=== PATIENT | female | born 1960 | race Hispanic/Latino ===

== ENCOUNTER 2022-06-06 09:55 | Emergency (ER) | payer OTHER, SELFPAY ==
[2022-06-06 10:59] LABS: Urine Blood Trace-intact (Negative); Urine Glucose Negative (Negative); Urine Protein Negative (Negative); Urine Specific Gravity 1.025 (1.005-1.030); Urine pH 5.5 (5.0-7.0)
[2022-06-06] MEDS ORDERED: NA CHLORIDE 0.9% 1,000 ML ONE (11:02)
[2022-06-06] MEDS ORDERED: KETOROLAC 30 MG/ML INJ ONE (11:02)
[2022-06-06] MEDS ORDERED: ONDANSETRON 4 MG/2 ML VIAL ONE (11:02)
[2022-06-06 11:22] LABS: Absolute Lymphocytes (CBC) 3.5 K/uL (0.7-4.9); Hematocrit 39.9 % (36.0-45.0); Lymphocytes % 51.8 % (15.3-44.8); MCV 85.9 fL (80-100); RBC Red Blood Cell Count 4.65 M/uL (3.86-4.86)
[2022-06-06 11:25] LABS: Urine Bacteria None Seen /HPF (<20); Urine Mucus Slight /HPF (None Seen); Urine RBC <5 /HPF (None Seen)
--- NOTE | 2022-06-06 11:26 | RAD REPORT ---
EXAM DESCRIPTION: CTAbdomen Pelvis Wo Contrast - 06/06/2022 11:13 am CLINICAL HISTORY: FLANK PAIN COMPARISON: Abdomen Pelvis W Contrast dated 04/03/2017; CT ABD PELVIS W CONTRAST dated 08/19/2013 TECHNIQUE: CT of the abdomen and pelvis was performed. All CT scans are performed using dose optimization technique as appropriate and may include automated exposure control or mA/KV adjustment according to patient size. FINDINGS: Lower chest: No acute abnormality. Liver: No acute abnormality or suspicious lesions. Biliary: No biliary ductal dilatation. Stomach: No significant focal abnormality. Duodenum: No significant focal abnormality. Pancreas: No significant abnormality. Spleen: No significant abnormality. Adrenal: No suspicious lesions. Kidney/ureter: No hydronephrosis. Punctate stone in pole right kidney. Retroperitoneum: No retroperitoneal adenopathy. Vascular: No aneurysm. Atherosclerosis Bowel: No significant focal abnormality. Normal appendix. Peritoneum: No ascites or free air. Small fat containing umbilical hernia. Bladder: Grossly unremarkable. Reproductive: Unremarkable Bones: No acute fracture. Multilevel degenerative changes are present in the spine. Other: n/a IMPRESSION: No acute intra-abdominal or pelvic finding. Punctate nonobstructing stone in the upper p ole right kidney. Normal appendix.
[2022-06-06 11:37] LABS: Albumin 3.6 g/dL (3.4-5.0); Bilirubin Total 0.3 mg/dL (0.2-1.0); Potassium 4.1 mmol/L (3.5-5.1); Protein, Total 7.3 g/dL (6.4-8.2)
[2022-06-06 12:17] LABS: Platelet Estimate ADEQ
[2022-06-06 12:18] LABS: Blood Morphology Comment NOT SEEN (NOT SEEN)
--- NOTE | 2022-06-06 12:32 | ER ---
Nurse's Notes [facility] Name: Mady Her Age: 61 yrs Sex: Female : 1960 Arrival Date: 06/06/2022 Time: 10:22 Bed 12 Private MD: Diagnosis: Flank pain;Hematuria, unspecified Presentation: 06/06 10:54 Chief complaint: Patient's son or daughter states: Right low back pain, stabbing, and jl7 nausea x 3 days, denies symptoms, denies fever. Coronavirus screen: Vaccine status: Patient reports receiving the 2nd dose of the covid vaccine. At this time, the client does not indicate any symptoms associated with coronavirus-19. Ebola Screen: No symptoms or risks identified at this time. Initial Sepsis Screen: Does the patient meet any 2 criteria? No. Patient's initial sepsis screen is negative. Does the patient have a suspected source of infection? No. Patient's initial sepsis screen is negative. Risk Assessment: Do you want to hurt yourself or someone else? Patient reports no desire to harm self or others. Onset of symptoms was June 04, 2022. 10:54 Method Of Arrival: Ambulatory jl7 10:54 Acuity: MAYA 3 jl7 Triage Assessment: 10:56 General: Appears in no apparent distress. uncomfortable, Behavior is calm, cooperative, jl7 appropriate for age. Pain: Complains of pain in right flank Pain currently is 10 out of 10 on a pain scale. GI: Reports nausea. Historical: - Allergies: 10:56 No Known Allergies; jl7 - Home Meds: 10:56 None [Active]; jl7 - PMHx: 10:56 None; jl7 - PSHx: 10:56 section; jl7 - Immunization history:: Adult Immunizations up to date. - Social history:: Smoking status: Patient denies any tobacco usage or history of. Screenin:49 [facility] ED Fall Risk Assessment (Adult) History of falling in the last 3 months, ss including since admission No falls in past 3 months (0 pts). Abuse screen: Denies threats or abuse. Denies injuries from another. Nutritional screening: No deficits noted. Tuberculosis screening: Never had TB. Assessment: 11:49 General: Appears in no apparent distress. comfortable, Behavior is calm, cooperative. ss Pain: Complains of pain in back and right flank Pain currently is 10 out of 10 on a pain scale. Quality of pain is described as aching, tender, Is continuous. Neuro: Level of Consciousness is awake, alert, obeys commands, Oriented to person, place, time, situation. Respiratory: Airway is patent Respiratory effort is even, unlabored, Respiratory pattern is regular, symmetrical. GI: Abdomen is non-distended. Derm: Skin is intact, is healthy with good turgor, Skin is pink, warm \T\ dry. normal. 12:22 Reassessment: Patient appears in no apparent distress at this time. Patient and/or ss family updated on plan of care and expected duration. Pain level reassessed. Patient is alert, oriented x 3, equal unlabored respirations, skin warm/dry/pink. pain has decreased after medication administration. Pain is now 5/10 Patient states feeling better. Patient states symptoms have improved. Vital Signs: 10:54 BP 160 / 84; Pulse 76; Resp 17; Temp 98.; Pulse Ox 96% ; Weight 86.18 kg; Height 5 ft. jl7 4 in. (162.56 cm); Pain 10/10; 10:54 Body Mass Index 32.61 (86.18 kg, 162.56 cm) jl7 ED Course: 10:22 Patient arrived in ED. am2 10:27 Alan Ulrich DO is Attending Physician. ms3 10:56 Triage completed. jl7 10:56 Arm band placed on right wrist. Patient placed in waiting room, Patient notified of jl7 wait time. 11:39 Hannah Gonzalez, LISS is Primary Nurse. ss 11:48 Inserted saline lock: 20 gauge in right antecubital area, using aseptic technique. ss ,using aseptic technique. earlier insertion by LUCIEN Cloud tech. 11:49 Patient has correct armband on for positive identification. Bed in low position. Call ss light in reach. 12:32 Adi Molina DO is Referral Physician. ms3 12:37 No provider procedures requiring assistance completed. IV discontinued, intact, ss bleeding controlled, No redness/swelling at site. Pressure dressing applied. Administered Medications: 11:45 Drug: Zofran (Ondansetron) 4 mg Route: IVP; Site: right antecubital; ss 12:37 Follow up: Response: No adverse reaction ss 11:47 Drug: NS 0.9% 1000 ml Route: IV; Rate: 1 bolus; Site: right antecubital; ss 12:38 Follow up: IV Status: Completed infusion; IV Intake: 1000ml ss 11:47 Drug: TORadol - (ketorolac) 15 mg Route: IVP; Site: right antecubital; ss 12:37 Follow up: Response: No adverse reaction; Marked relief of symptoms; Pain is decreased ss Medication: 11:49 VIS not applicable for this client. ss Intake: 12:38 IV: 1000ml; Total: 1000ml. ss Outcome: 12:32 Discharge ordered by . ms3 12:37 Discharged to home ambulatory. ss 12:37 Condition: good 12:37 Discharge instructions given to patient, family, Instructed on discharge instructions, follow up and referral plans. medication usage, Demonstrated understanding of instructions, follow-up care, medications, Prescriptions given X 1. 12:38 Patient left the ED. Signatures: Hannah Gonzalez RN RN ss Ryan Lee RN RN jl7 Yudith Yañez Marcus, DO DO ms3
--- NOTE | 2022-06-06 12:33 | EDPHYS ---
Physician Documentation [facility] Name: Mady Her Age: 61 yrs Sex: Female : 1960 Arrival Date: 06/06/2022 Time: 10:22 Bed 12 Private MD: ED Physician Alan Ulrich HPI: 06/06 12:32 This 61 yrs old Female presents to ER via Ambulatory with complaints of Low ms3 Back Pain - right side, Nausea. 12:32 61-year-old female with no past medical history presents for right flank pain and ms3 tenderness to palpation in the right flank that has been ongoing for 2 days. Patient states pain is a 10/10 and throbbing. Patient is taken ibuprofen and Tylenol without relief. Patient denies vomiting, chills, dysuria, urinary frequency. Historical: - Allergies: 10:56 No Known Allergies; jl7 - Home Meds: 10:56 None [Active]; jl7 - PMHx: 10:56 None; jl7 - PSHx: 10:56 section; jl7 - Immunization history:: Adult Immunizations up to date. - Social history:: Smoking status: Patient denies any tobacco usage or history of. ROS: 12:32 Constitutional: Negative for fever, and chills. Neck: Negative for injury, pain, and ms3 swelling, Cardiovascular: Negative for chest pain, and palpitations. Respiratory: Negative for shortness of breath, cough, wheezing, and pleuritic chest pain, Abdomen/GI: Negative for abdominal pain, nausea, vomiting, diarrhea, and constipation. 12:32 Skin: Negative for injury, rash, and discoloration. 12:32 Back: Positive for flank pain. 12:32 All other systems are negative. Exam: 12:32 Constitutional: This is a well developed, well nourished patient who is awake, alert, ms3 and in no acute distress. Head/Face: Normocephalic, atraumatic. Neck: Trachea midline, no cervical lymphadenopathy. Supple, full range of motion without nuchal rigidity, or vertebral point tenderness. No Meningismus. Chest/axilla: Normal chest wall appearance and motion. Nontender with no deformity. Cardiovascular: Regular rate and rhythm with a normal S1 and S2. No gallops, murmurs, or rubs. Normal PMI, no JVD. No pulse deficits. Respiratory: Lungs have equal breath sounds bilaterally, clear to auscultation and percussion. No rales, rhonchi or wheezes noted. No increased work of breathing, no retractions or nasal flaring. Abdomen/GI: Soft, non-tender, with normal bowel sounds. No distension or tympany. No guarding or rebound. No evidence of tenderness throughout. Skin: Warm, dry with normal turgor. Normal color with no rashes, no lesions, and no evidence of cellulitis. MS/ Extremity: Pulses equal, no cyanosis. Neurovascular intact. Full, normal range of motion. 12:32 Back: pain, that is moderate, CVA tenderness, that is moderate, is noted on the right. Vital Signs: 10:54 BP 160 / 84; Pulse 76; Resp 17; Temp 98.; Pulse Ox 96% ; Weight 86.18 kg; Height 5 ft. jl7 4 in. (162.56 cm); Pain 10/10; 10:54 Body Mass Index 32.61 (86.18 kg, 162.56 cm) jl7 MDM: 11:03 Patient medically screened. ms3 12:32 Differential diagnosis: strain, UTI, Nephrolithiasis. Data reviewed: vital signs, ms3 nurses notes, lab test result(s), radiologic studies, and as a result, I will discharge patient. I considered the following discharge prescriptions or medication management in the emergency department Medications were administered in the Emergency Department. See MAR. Independent interpretation of the following test(s) in the Emergency Department CT Scan: My interpretation is CT images reviewed by me: No ureteral stone seen. Historians other than the Patient: Daughter/Son: Daughter. Counseling: I had a detailed discussion with the patient and/or guardian regarding: the historical points, exam findings, and any diagnostic results supporting the discharge/admit diagnosis, lab results, radiology results, the need for outpatient follow up, to return to the emergency department if symptoms worsen or persist or if there are any questions or concerns that arise at home. ED course: Discussed labs and CT findings with patient and her family. Patient to follow-up with primary care physician in 2 to 3 days for reevaluation. Patient understands agrees plan. All questions were answered. Return precautions discussed include fevers, chills, vomiting, worsening symptoms, or any other concerns. On reevaluation patient is improved, alert and orient x4, no apparent distress, nontoxic, ambulatory in emergency department.. 06/06 10:49 Order name: CBC with Diff ms3 06/06 10:49 Order name: CMP ms3 06/06 10:49 Order name: Lipase ms3 06/06 10:49 Order name: Urine Microscopic Only ms3 06/06 11:00 Order name: Urine Dipstick-Ancillary; Complete Time: 11:52 EDMS 06/06 11:24 Order name: CBC with Automated Diff EDMS 06/06 10:49 Order name: CT Abd/Pelvis - Without Contrast ms3 06/06 11:25 Order name: Urine Microscopic Only; Complete Time: 11:52 EDMS 06/06 11:27 Order name: CT; Complete Time: 11:52 EDMS 06/06 11:38 Order name: Comprehensive Metabolic Panel; Complete Time: 11:52 EDMS 06/06 11:38 Order name: Lipase; Complete Time: 11:52 EDMS 06/06 12:18 Order name: Manual Differential EDMS 06/06 10:49 Order name: IV Saline Lock; Complete Time: 11:47 ms3 06/06 10:49 Order name: Labs collected and sent; Complete Time: 11:47 ms3 06/06 10:49 Order name: Urine Dipstick-Ancillary (obtain specimen); Complete Time: 10:55 ms3 Administered Medications: 11:45 Drug: Zofran (Ondansetron) 4 mg Route: IVP; Site: right antecubital; ss 12:37 Follow up: Response: No adverse reaction ss 11:47 Drug: NS 0.9% 1000 ml Route: IV; Rate: 1 bolus; Site: right antecubital; ss 12:38 Follow up: IV Status: Completed infusion; IV Intake: 1000ml ss 11:47 Drug: TORadol - (ketorolac) 15 mg Route: IVP; Site: right antecubital; ss 12:37 Follow up: Response: No adverse reaction; Marked relief of symptoms; Pain is decreased ss Disposition Summary: 06/06/22 12:32 Discharge Ordered Location: Home ms3 Condition: Stable ms3 Diagnosis - Flank pain ms3 - Hematuria, unspecified ms3 Followup: ms3 - With: Molina, Adi, DO - When: 2 - 3 days - Reason: Recheck today's complaints Discharge Instructions: - Discharge Summary Sheet ms3 - Flank Pain, Adult ms3 - Hematuria, Adult ms3 Forms: - Medication Reconciliation Form ms3 - Thank You Letter ms3 - Antibiotic Education ms3 - Prescription Opioid Use ms3 Prescriptions: - Ibuprofen 600 mg Oral Tablet - take 1 tablet by ORAL route every 6 hours As needed take with food; 30 tablet; ms3 Refills: 0, Product Selection Permitted Signatures: Dispatcher [employer] Hannah Lee RN RN ss Ryan Lee RN RN jl7 Alan Ulrich DO DO ms3
[2022-06-06 12:58] VITALS: BP 160/84; TEMP 98; O2SAT 96
== END 2022-06-06 12:38 | disposition home or self-care (01) ==
LOC: ER 09:55
DX: R10.9 Unspecified abdominal pain (principal); R31.9 Hematuria, unspecified
CPT/HCPCS: 85025; 36415; 83690; 80053; 74176; J7030; J2405; 81003; 81015

== ENCOUNTER 2023-01-10 10:05 | Emergency (ER) | payer OTHER ==
--- OUTSIDE RECORDS SUMMARY | 2023-01-10 10:08 | XMS REPORT | Continuity of Care Document ---
:1960 Author Organization [facility] t Address [address] [place] [address] Care Team Providers Name Role Phone Unavailable Unavailable Unavailable Problems This patient has no known problems. Allergies, Adverse Reactions, Alerts This patient has no known allergies or adverse reactions. Medications This patient has no known medications. Procedures This patient has no known procedures. Encounters Start End Encounter Admission Attending Care Care Encounter Source Date/Time Date/Time Type Type Clinicians Facility Department ID 2022-08-07 2022-08-07 Outpatient [facility]EL [id number] Robert 17:30:13 17:30:13 0417 Vick Alvin Results This patient has no known results.
[2023-01-10] MEDS ORDERED: KETOROLAC 30 MG/ML INJ ONE (10:37)
--- NOTE | 2023-01-10 11:38 | RAD REPORT ---
EXAM DESCRIPTION: RAD - Shoulder Left 2 View - 01/10/2023 10:44 am CLINICAL HISTORY: PAIN COMPARISON: No comparisons FINDINGS: Diffuse osteopenia is seen. Mild AC joint and glenohumeral joint arthritic changes. No fra cture or dislocation seen. Mild high-riding humeral head noted, suggesting underlying rotator cuff te ar.
--- NOTE | 2023-01-10 11:51 | ER ---
Nurse's Notes [facility] Name: Mady Her Age: 62 yrs Sex: Female : 1960 Arrival Date: 01/10/2023 Time: 10:05 Bed 18 Private MD: Diagnosis: Pain in left shoulder Presentation: 01/10 10:23 Chief complaint: Patient states: L shoulder pain that started Villa night, radiates to ph L upper arm, denies chest pain, dizziness or N/V, no known trauma. Coronavirus screen: Vaccine status: Patient reports receiving the 2nd dose of the covid vaccine. Ebola Screen: No symptoms or risks identified at this time. Initial Sepsis Screen: Does the patient meet any 2 criteria? No. Patient's initial sepsis screen is negative. Does the patient have a suspected source of infection? No. Patient's initial sepsis screen is negative. Risk Assessment: Do you want to hurt yourself or someone else? Patient reports no desire to harm self or others. Onset of symptoms was January 10, 2023. 10:23 Method Of Arrival: Ambulatory ph 10:23 Acuity: MAYA 3 ph Triage Assessment: 10:25 General: Appears in no apparent distress. comfortable, Behavior is calm, cooperative. ph Pain: Complains of pain in anterior aspect of left shoulder Pain radiates to left bicep and left tricep. Historical: - Allergies: 10:24 No Known Allergies; ph - PSHx: 10:24 section; ph - Immunization history:: Adult Immunizations unknown. - Social history:: Smoking status: Patient denies any tobacco usage or history of. - Family history:: not pertinent. Screenin:[address] [facility] ED Fall Risk Assessment (Adult) Score/Fall Risk Level 0 - 2 = Low Risk. Abuse eh3 screen: Denies threats or abuse. Denies injuries from another. Nutritional screening: No deficits noted. Tuberculosis screening: No symptoms or risk factors identified. Assessment: 10:30 General: Appears in no apparent distress. uncomfortable, Behavior is calm, cooperative, eh3 appropriate for age. Pain: Complains of pain in anterior aspect of left shoulder, left bicep, posterior aspect of left shoulder and left tricep. Neuro: Level of Consciousness is awake, alert, obeys commands, Oriented to person, place, time, situation. Cardiovascular: Capillary refill < 3 seconds Patient's skin is warm and dry. Respiratory: Airway is patent Respiratory effort is even, unlabored, Respiratory pattern is regular, symmetrical. GI: Abdomen is round non-distended. Derm: Skin is healthy with good turgor, Skin is pink, warm \T\ dry. Musculoskeletal: Circulation, motion, and sensation intact. 11:30 Reassessment: Patient appears in no apparent distress at this time. Patient and/or eh3 family updated on plan of care and expected duration. Pain level reassessed. Patient is alert, oriented x 3, equal unlabored respirations, skin warm/dry/pink. Vital Signs: 10:23 BP 151 / 71; Pulse 73; Resp 18; Temp 97.4; Pulse Ox 98% on R/A; Weight 83.91 kg; Height ph 5 ft. 4 in. ; 10:30 BP 126 / 67; eh3 11:30 BP 130 / 76; Pulse 66; Resp 18; Pulse Ox 97% on R/A; eh3 10:23 Body Mass Index 31.75 (83.91 kg, 162.56 cm) ph ED Course: 10:08 Patient arrived in ED. im 10:08 Urban Hinton MD is Attending Physician. rt 10:22 Mila Schneider, LISS is Primary Nurse. eh3 10:24 Triage completed. ph 10:25 Arm band placed on Patient placed in an exam room, on a stretcher. ph 10:30 Patient has correct armband on for positive identification. Bed in low position. Call eh3 light in reach. Side rails up X2. Adult w/ patient. Provided Education on: Use of call khan. Pulse ox on. NIBP on. Door closed. Noise minimized. Lights dimmed. Warm blanket given. 10:45 Shoulder Left (2 View) XRAY In Process Unspecified. EDMS 11:50 Anjum Estevez MD is Referral Physician. rt 11:59 No provider procedures requiring assistance completed. Patient did not have IV access eh3 during this emergency room visit. Administered Medications: 10:30 Drug: Ketorolac IM 15 mg IM once Route: IM; Site: right deltoid; eh3 11:08 Follow up: Response: No adverse reaction eh3 Medication: 11:59 VIS not applicable for this client. eh3 Outcome: 11:51 Discharge ordered by . rt 11:59 Discharged to home ambulatory, with family, [facility] 11:59 Condition: stable 11:59 Discharge instructions given to patient, family, Instructed on discharge instructions, follow up and referral plans. Demonstrated understanding of instructions, follow-up care, 11:59 Patient left the ED. [facility] Signatures: Dispatcher [employer] Naida Kramer RN RN Mila Schneider RN RN 3 Urban Hinton MD MD Marisol Johnson
--- NOTE | 2023-01-10 11:51 | EDPHYS ---
Physician Documentation [facility] Name: Mady Her Age: 62 yrs Sex: Female : 1960 Arrival Date: 01/10/2023 Time: 10:05 Bed 18 Private MD: ED Physician Urban Hinton HPI: 01/10 10:25 This 62 yrs old Female presents to ER via Ambulatory with complaints of Arm rt Pain - left. 10:25 Patient presents to the ED with a left shoulder pain, worse with movement since Sunday rt night. Has not worsened today. She is taken [id number] medications, to no relief. The pain does radiate to her upper arm. Denies chest pain. No shortness of breath. Denies acute complaint at this time, symptoms are aching in nature, moderate severity, no other aggravating relieving factors.. Historical: - Allergies: 10:24 No Known Allergies; ph - PSHx: 10:24 section; ph - Immunization history:: Adult Immunizations unknown. - Social history:: Smoking status: Patient denies any tobacco usage or history of. - Family history:: not pertinent. ROS: 10:25 Constitutional: Negative for fever, chills, and weight loss, Cardiovascular: Negative rt for chest pain, palpitations, and edema, Respiratory: Negative for shortness of breath, cough, wheezing, and pleuritic chest pain, Abdomen/GI: Negative for abdominal pain, nausea, vomiting, diarrhea, and constipation, Skin: Negative for injury, rash, and discoloration, Neuro: Negative for headache, weakness, numbness, tingling, and seizure, Psych: Negative for depression, anxiety, suicide ideation, homicidal ideation, and hallucinations, 10:25 MS/extremity: Positive for pain, Negative for injury or acute deformity, Exam: 10:25 Constitutional: This is a well developed, well nourished patient who is awake, alert, rt and in no acute distress. Head/Face: Normocephalic, atraumatic. Chest/axilla: Normal chest wall appearance and motion. Nontender with no deformity. No lesions are appreciated. Cardiovascular: Regular rate and rhythm with a normal S1 and S2. No gallops, murmurs, or rubs. Normal PMI, no JVD. No pulse deficits. Respiratory: Lungs have equal breath sounds bilaterally, clear to auscultation and percussion. No rales, rhonchi or wheezes noted. No increased work of breathing, no retractions or nasal flaring. Abdomen/GI: Soft, non-tender, with normal bowel sounds. No distension or tympany. No guarding or rebound. No evidence of tenderness throughout. Skin: Warm, dry with normal turgor. Normal color with no rashes, no lesions, and no evidence of cellulitis. Neuro: Awake and alert, GCS 15, oriented to person, place, time, and situation. Cranial nerves II-XII grossly intact. Motor strength 5/5 in all extremities. Sensory grossly intact. Cerebellar exam normal. Normal gait. Psych: Awake, alert, with orientation to person, place and time. Behavior, mood, and affect are within normal limits. 10:25 Musculoskeletal/extremity: Tenderness to left superior trapezius, left subdural fossa, no deformities noted, full range of motion, pulses, motor, sensation intact. Vital Signs: 10:23 BP 151 / 71; Pulse 73; Resp 18; Temp 97.4; Pulse Ox 98% on R/A; Weight 83.91 kg; Height ph 5 ft. 4 in. ; 10:30 BP 126 / 67; eh3 11:30 BP 130 / 76; Pulse 66; Resp 18; Pulse Ox 97% on R/A; eh3 10:23 Body Mass Index 31.75 (83.91 kg, 162.56 cm) ph MDM: 10:12 Patient medically screened. rt 11:51 Differential diagnosis: dislocation, closed fracture, abrasion, tendonitis. Data rt reviewed: vital signs, nurses notes, radiologic studies. I considered the following discharge prescriptions or medication management in the emergency department Medications were administered in the Emergency Department. See MAR. Independent interpretation of the following test(s) in the Emergency Department X-Ray: My interpretation is No dislocations interpretation of x-ray images. Test considered but Not performed: EKG: Symptoms clearly musculoskeletal, very low suspicion for cardiac etiology, EKG, labs not indicated. Counseling: I had a detailed discussion with the patient and/or guardian regarding the historical points, exam findings, and any diagnostic results supporting the discharge/admit diagnosis, radiology results, the need for outpatient follow up. 01/10 10:17 Order name: Shoulder Left (2 View) XRAY; Complete Time: 11:39 rt Administered Medications: 10:30 Drug: Ketorolac IM 15 mg IM once Route: IM; Site: right deltoid; 3 11:08 Follow up: Response: No adverse reaction eh3 Disposition Summary: 01/10/23 11:51 Discharge Ordered Notes: Location: Home rt Problem: new rt Symptoms: are unchanged rt Condition: Stable rt Diagnosis - Pain in left shoulder rt Followup: rt - With: Anjum Estevez MD - When: 7 - 10 days - Reason: Discharge Instructions: - Discharge Summary Sheet rt - Rotator Cuff Tear rt - Shoulder Range of Motion Exercises rt Forms: - Medication Reconciliation Form rt - Thank You Letter rt - Antibiotic Education rt - Prescription Opioid Use rt - Patient Portal Instructions rt - Leadership Thank You Letter rt Signatures: Dispatcher [employer] Naida Kramer, LISS RN Mila Schneider RN RN 3 Urban Hinton MD MD rt
[2023-01-10 12:06] VITALS: TEMP 97.4
[2023-01-10 12:08] VITALS: BP 130/76; O2SAT 97
== END 2023-01-10 11:59 | disposition home or self-care (01) ==
LOC: ER 10:05
DX: M25.512 Pain in left shoulder (principal)

== ENCOUNTER 2023-07-21 21:33 | Inpatient (IN) | payer OTHER ==
--- OUTSIDE RECORDS SUMMARY | 2023-07-21 21:36 | XMS REPORT | Continuity of Care Document ---
Author Name Unknown Address [address] [facility] [address] [facility] Address [address] [facility] [address] [place] [address] Care Team Providers Care Plant Operations Manager Name Role Phone Gayle Boudreaux Attending Clinician Unavailable CAROL ZAMBRANO Attending Clinician Unavailable DOLORES BAUER Attending Clinician Unavailab Christine MD Attending Clinician UnavailJOLEEN Galindo Attending Clinician Unavailabl e LAB90 Attending Clinician Unavailable GAYLE BOUDREAUX Attending Clinician UnaROBERT López Attending Clinician Unavailable DARNELL DUNAWAY Attending Clinician Unavailable Gayle Boudreaux Admitting Clinician Unavailable Payers Payer Name Policy Type Policy Number Effective Date Expirati on Date Source AETNA MP [facility] 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 94 ON 9 [id number] 2022 00:00:00 [facility] 9 [id number] 2023 00:00:00 Social History Social Habit Start Date Stop Date Quantity Comments Source Sexual orientation Esther Ulrich - External Alcohol intake 2023-07-12 00:00:00 2023-07-12 00:00:00 Lifetime non-drinker (finding) Casi Ulrich - External History of Social function 2023-01-17 00:00:00 2023-01-17 00:00:00 Casi Ulrich - External Sex Ass[birth year] At 1960 00:00:00 1960 00:00:00 Casi Spann Smoking Status Start Date Stop Date Source Never smoked tobacco Casi Spann Medications Ordered Medication Name Filled Medication Name Start Date Stop Date Current Medication? Ordering Clinician Indication Dosage Frequency Signature (SIG) Comments Components Source Trazodone HCl 50 MG oral Tablet -21 00:00: 00 Yes [id number] 50mg Take 1 tablet (50 mg total) by mouth nightly. Casi murillo Lisinopril 10 MG oral Tablet -14 00:00: 00 Yes [id number] 10mg TAKE 1 TABLET BY MOUTH EVERY DAY Casi murillo Methocarbam ol 500 MG oral Tablet 06-24 00:00: 00 Yes TAKE 1 TABLET ORALLY THREE TIMES A DAY NEEDED Casi murillo Ondansetron HCl 4 MG oral Tablet 06-24 00:00: 00 Yes 4mg Q.25D Take 1 tablet (4 mg total) by mouth every 6 hours as needed. Casi murillo HYDROcodone -Acetaminop hen 7.5-325 MG oral Tablet 06-18 00:00: 00 Yes TAKE 1 TABLET BY MOUTH EVERY 6 HOURS NEEDED FOR 7 DAYS Casi murillo Meloxicam 7.5 MG oral Tablet 05-31 00:00: 00 Yes [id number] 7.5mg Take 1 tablet (7.5 mg total) by mouth daily. Casi murillo Meloxicam 7.5 MG oral Tablet 05-31 00:00: 00 Yes [id number] 7.5mg Take 1 tablet (7.5 mg total) by mouth daily. Casi murillo Ketorolac Tromethamin e (TORADOL) 30 mg/mL 2022-04 22:45: 00 03-30 22:56 :00 No [id number] 30mg Casi murillo Ketorolac Tromethamin e (TORADOL) 30 mg/mL 2022-04 22:45: 00 03-30 22:56 :00 No [id number] 30mg 30 mg, intramuscu lar, ONCE, On Sun03/30/23 at 1645, For 1 dose Casi Alvarado Externa chidi methylPREDN ISolone 4 MG oral Tablet Therapy Pack 2022-04 00:00: 00 Yes [id number] 1{huseyin} Take 1 huseyin by mouth See Admin Instructio ns Use as directed. Casi Ulrich - Externa chidi Meloxicam 7.5 MG oral Tablet 2022-04 00:00: 00 Yes [id number] 7.5mg Take 1 tablet (7.5 mg total) by mouth daily. Casi Ulrich - Externa chidi methylPREDN ISolone 4 MG oral Tablet Therapy Pack 2022-04 00:00: 00 05-31 00:00 :00 No [id number] 1{huseyin} Take 1 huseyin by mouth See Admin Instructio ns Use as directed. Casi Ulrich - Externa chidi Meloxicam 7.5 MG oral Tablet 2022-04 00:00: 00 05-31 00:00 :00 No [id number] 7.5mg Take 1 tablet (7.5 mg total) by mouth daily. Casi Graciaa chidi Methylpredn isolone Acetate (Depo-Medro l) 40 mg/ml - Physician Administere d (J1030) 2022-04 0 14:15: 00 01-25 22:40 :00 No [id number] 9104 40mg Casi Ulrich - Externa l Methylpredn isolone Acetate (Depo-Medro l) 40 mg/ml - Physician Administere d ([id number]) 2022-04 0 14:15: 00 01-25 22:40 :00 No [id number] 9104 40mg 40 mg, Physician Administer ed, ONCE, 1 dose, On Sun01/25/23 at 0915 Casi Graciaa chidi methylPREDN ISolone 4 MG oral Tablet Therapy Pack 01-17 00:00: 00 Yes [id number] 1{huseyin} Take 1 pa k by mouth See Admin Instructio ns Use as directed. Casi Graciaa chidi Diclofenac Sodium 75 MG oral Tablet Delayed Response 01-17 00:00: 00 Yes [id number] 75mg Take 1 tablet (75 mg total) by mouth 2 times daily. Casi Alvarado Externa l methylPREDN ISolone 4 MG oral Tablet Therapy Pack 01-17 00:00: 00 Yes [id number] 1{huseyin} Take 1 pa k by mouth See Admin Instructio ns Use as directed. Casi Alvarado Externa l Diclofenac Sodium 75 MG oral Tablet Delayed Response 01-17 00:00: 00 Yes [id number] 75mg Take 1 tablet (75 mg total) by mouth 2 times daily. Casi Alvarado Externa l methylPREDN ISolone 4 MG oral Tablet Therapy Pack 01-17 00:00: 00 Yes [id number] 1{huseyin} Take 1 pa k by mouth See Admin Instructio ns Use as directed. Casi Michelle l Diclofenac Sodium 75 MG oral Tablet Delayed Response 01-17 00:00: 00 Yes [id number] 75mg Take 1 tablet (75 mg total) by mouth 2 times daily. Casi murillo methylPREDN ISolone 4 MG oral Tablet Therapy Pack 01-17 00:00: 00 05-31 00:00 :00 No [id number] 1{huseyin} Take 1 huseyin by mouth See Admin Instructio ns Use as directed. Casi Alvarado Externa l Diclofenac Sodium 75 MG oral Tablet Delayed Response 01-17 00:00: 00 05-31 00:00 :00 No [id number] 75mg Take 1 tablet (75 mg total) by mouth 2 times daily. Casi Ulrich - Externa l Gabapentin 100 MG oral Capsule 01-10 00:00: 00 Yes 100mg Take 1 capsule (100 mg total) by mouth 3 times daily. Casi Downsold - Externa l Gabapentin 100 MG oral Capsule 0 01-10 00:00: 00 Yes 100mg Take 1 capsule (100 mg total) by mouth 3 times daily. Casi Downsold - Externa l Gabapentin 100 MG oral Capsule 01-10 00:00: 00 Yes 100mg Take 1 capsule (100 mg total) by mouth 3 times daily. Casi Downsold - Externa l Gabapentin 100 MG oral Capsule -20 00:00: 00 05-31 00:00 :00 No 100mg Take 1 capsule (100 mg total) by mouth 3 times daily. Casi Downsold - Externa l Vital Signs Vital Name Observation Time Observation Value Comments Jose Luis vargas Systolic blood pressure 2023-07-12 15:02:00 138 mm[Hg] Casi Seybo ld - External Diastolic blood pressure 2023-07-12 15:02:00 72 mm[Hg] Casi Duffybo ld - External Heart rate 2023-07-12 15:02:00 78 /min Kelse y Seybold - External Body temperature 2023-07-12 15:02:00 36.72 Claudia Casi Seybold - External Respiratory rate 2023-07-12 15:02:00 16 /min Casi Seybold - External Body height 2023-07-12 15:02:00 160 cm Pinky ey Seybold - External Body weight 2023-07-12 15:02:00 90.266 kg Pinky ey Seybold - External BMI 2023-07-12 15:02:00 35.25 kg/m2 Pinky ey Seybold - External Oxygen saturation in Arterial blood by Pulse oximetry 2023-07-12 15:02:00 97 /min Casi Duffybo ld - External Systolic blood pressure 2023-05-31 22:13:00 158 mm[Hg] Casi Seybo ld - External Diastolic blood pressure 2023-05-31 22:13:00 78 mm[Hg] Casi Duffybo ld - External Heart rate 2023-05-31 22:13:00 81 /min Kelse y Seybold - External Body temperature 2023-05-31 22:13:00 35.89 Claudia Casi Seybold - External Respiratory rate 2023-05-31 22:13:00 15 /min Casi Seybold - External Body height 2023-05-31 22:13:00 160 cm Pinky ey Seybold - External Body weight 2023-05-31 22:13:00 90.719 kg Pinky ey Seybold - External BMI 2023-05-31 22:13:00 35.43 kg/m2 Pinky ey Seybold - External Systolic blood pressure 2023-03-30 22:22:00 126 mm[Hg] Casi Duffybo ld - External Diastolic blood pressure 2023-03-30 22:22:00 68 mm[Hg] Casi Seybo ld - External Heart rate 2023-03-30 22:22:00 94 /min Kelse y Seybold - External Body temperature 2023-03-30 22:22:00 36.44 Claudia Casi Seybold - External Respiratory rate 2023-03-30 22:22:00 16 /min Casi Seybold - External Body height 2023-03-30 22:22:00 160 cm Pinky ey Seybold - External Body weight 2023-03-30 22:22:00 87.091 kg Pinky ey Seybold - External BMI 2023-03-30 22:22:00 34.01 kg/m2 Pinky ey Seybold - External Oxygen saturation in Arterial blood by Pulse oximetry 2023-03-30 22:22:00 96 /min Casi Duffybo ld - External Body weight 2023-01-25 13:56:00 88.633 kg Pinky ey Seybold - External BMI 2023-01-25 13:56:00 34.61 kg/m2 Pinky ey Seybold - External Systolic blood pressure 2023-01-17 14:04:00 156 mm[Hg] Casi Seybo ld - External Diastolic blood pressure 2023-01-17 14:04:00 82 mm[Hg] Casi Duffybo ld - External Heart rate 2023-01-17 14:04:00 74 /min Monicose y Seybold - External Body temperature 2023-01-17 14:04:00 36 Claudia Casi Seybold - External Respiratory rate 2023-01-17 14:04:00 15 /min Casi Seybold - External Body height 2023-01-17 14:04:00 160 cm Pinky ey Seybold - External Body weight 2023-01-17 14:04:00 88.905 kg Pinky ey Seybold - External BMI 2023-01-17 14:04:00 34.72 kg/m2 Pinky ey Seybold - External Encounters Start Date/Time End Date/Time Encounter Type Admission Type Attending [facility] Care Department Encounter ID Source 2023-06-18 08:17:01 Outpatient Gayle Boudreaux [facility] [id number] [facility] 2023-08-13 10:00:00 2023-08-13 10:00:00 Outpatient JUAN MANUEL CAROL BECERRA [id number] Casi Seybadalberto 2023-07-30 11:30:00 2023-07-30 11:30:00 Outpatient DOLORES BAUER CASI BECERRA [id number] Casi Seybold 2023-07-12 10:00:00 2023-07-12 10:00:00 Outpatient JUAN MANUEL CAROL BECERRA [id number] Casi Seybold 2023-07-12 00:00:00 2023-07-12 00:00:00 Outpatient CASI BECERRA [id number] Casi Seybadalberto 2023-07-11 00:00:00 2023-07-11 00:00:00 Outpatient CAROL ZAMBRANO [id number] Casi Seybold 2023-07-01 00:00:00 2023-07-01 00:00:00 Outpatient CAROL ZAMBRANO [id number] Casi Seybold 2023-06-18 00:00:00 2023-06-18 00:00:00 Outpatient MD CASI ERIC [id number] Casi Seybold 2023-06-18 00:00:00 2023-06-18 00:00:00 Outpatient CASI BECERRA [id number] Casi Seybadalberto 2023-06-11 16:00:00 2023-06-11 16:00:00 Outpatient JOLEEN NORIEGA [id number] Casi Seybold 2023-06-08 16:00:00 2023-06-08 16:00:00 Outpatient JOLEEN NORIEGA [id number] Casi Seybadalberto 2023-06-08 11:30:00 2023-06-08 11:30:00 Outpatient JOLEEN NORIEGA [id number] Casi Seybold 2023-06-08 00:00:00 2023-06-08 00:00:00 Outpatient CAROL ZAMBRANO [id number] Casi Seybadalberto 2023-06-07 16:15:00 2023-06-07 16:15:00 Outpatient JOLEEN NORIEGA CASI BECERRA [id number] Casi Seybadalberto 2023-05-31 16:55:00 2023-05-31 16:55:00 Outpatient LAB90 CASI BECERRA [id number] Casi Seybadalberto 2023-05-31 16:00:00 2023-05-31 16:00:00 Outpatient JUAN MANUEL CAROL BECERRA [id number] Casi Seybadalberto 2023-05-30 11:00:00 2023-05-30 11:00:00 Outpatient CAROL ZAMBRANO [id number] Casi Seybadalberto 2023-05-17 00:00:00 2023-05-17 00:00:00 Outpatient [facility] [id number] [facility] 2023-05-15 00:00:00 2023-05-15 00:00:00 Outpatient GAYLE BOUDREAUX [id number] [facility] 2023-05-10 00:00:00 2023-05-10 00:00:00 Outpatient CAS[facility] BECER[facility] [id number] [facility] 2023-04-30 00:00:00 2023-04-30 00:00:00 Outpatient CASI BECERRA [id number] Casi Seybadalberto 2023-03-30 17:00:00 2023-03-30 17:00:00 Outpatient LAB90 CASI BECERRA [id number] Casi Seybold 2023-03-30 16:30:00 2023-03-30 16:30:00 Outpatient GAYLE BOUDREAUX [id number] Casi Seybold 2023-03-30 00:00:00 2023-03-30 00:00:00 Outpatient CASI BECERRA [id number] Casi Seybold 2023-02-27 00:00:00 2023-02-27 00:00:00 Outpatient MD CASI ERIC [id number] Casi Seybold 2023-02-14 09:30:00 2023-02-14 09:30:00 Outpatient CAROL ZAMBRANO [id number] Casi Ulrich 2023-02-13 00:00:00 2023-02-13 00:00:00 Outpatient CAROL ZAMBRANO [id number] Casi Ulrich 2023-01-25 08:40:00 2023-01-25 08:40:00 Outpatient ROBERT GARCÍA CASI [id number] Casi Ulrich 2023-01-25 08:30:00 2023-01-25 08:30:00 Outpatient CASI BECERRA [id number] Casi Ulrich 2023-01-22 00:00:00 2023-01-22 00:00:00 Outpatient ROBERT GARCÍA [id number] Casi Ulrich 2023-01-18 00:00:00 2023-01-18 00:00:00 Outpatient CAROL ZAMBRANO CASI [id number] Casi Duffadalberto 2023-01-18 00:00:00 2023-01-18 00:00:00 Outpatient DARNELL DUNAWAY [id number] [facility] Duff[facility]to 2023-01-17 09:00:00 2023-01-17 09:00:00 Outpatient CAROL ZAMBRANO [id number] Casi Duffadalberto 2022-08-07 17:30:13 2022-08-07 17:30:13 Outpatient SFA SFA 0417 Robert Esquivel History and Physical Notes Date/Time Note Provider Source 2023-05-31 16:26:00 [id number] OMuTHXdISxw7+VFRj A1BTTL9CS8OfV4MhHKbzd/ag5op9984-36-83 T16:26:00 Edel Bobo is a 62 year old female presents at the request of Dr. Estevez for pre-op clearance for existing shoulder issues. Edel is scheduled for surgery due to impingement syndrome .Shoulder Dr. Estveez 06/22/23There is no problem list on file for this patient.No past medical history on file.Past Surgical History:Procedure Laterality DateCESAREAN DELIVERY ONLYSocial HistoryTobacco UseSmoking status: NeverSubstance Use TopicsAlcohol use: NeverDrug use: NeverFamily HistoryProblem Relation Name Age of OnsetDiabetes Mellitus MotherPsoriasis FatherCurrent MedicationsCurrent Outpatient MedicationsMedication Sig Dispense RefillMeloxicam 7.5 MG oral Tablet Take 1 tablet (7.5 mg total) by mouth daily. 30 tablet 2No current facility-administered medications for this visit.AllergiesNo Known AllergiesReview of SystemsConstitutional: negativeHENT: negativeEyes: negativeRespiratory: negativeCardiovascular: negativeGastrointestinal: negativeHematologic/lymphatic: negativeMusculoskeletal:negativeSkin: negativePsychiatric/Behavioral: negativePhysical ExamBP 158/78 (Side: Right Arm, Position: SITTING, Cuff Size: Medium Adult) | Pulse 81 | Temp 96.6 ?F (35.9 ?C) (Tympanic) | Resp 15 | Ht 5' 3" (1.6 m) | Wt 200 lb (90.7 kg) | BMI 35.43 kg/m?General appearance: alert, cooperativeEyes: negativeNeck: supple, symmetrical, trachea midline and no adenopathyCardiovascular: regular rate and rhythm, S1, S2 normal, no murmur, click, rub or gallop, regular rate and rhythm, S1, S2 normalPulmonary/Chest: clear to auscultation bilaterallyAbdominal: soft, non-tender. Bowel sounds normal. No masses, no organomegalyMusculoskeletal: no edema, redness or tenderness in the calves or thighsSkin: Skin is warm and dry. She is not diaphoretic. No pallor.Neurologic: Grossly normalNursing Notes and vitals reviewed.I have reviewed the patient's labs, imaging, and other data that is available.Assessment and PlanNorma was seen today for pre-op exam.Diagnoses and all orders for this visit:Blood glucose elevated- HEMOGLOBIN (HB) A1C; FuturePreop examinationImpingement of both shoulders - Not Controlled- Meloxicam 7.5 MG oral Tablet; Take 1 tablet (7.5 mg total) by mouth daily.Tendonitis - Not Controlled- Meloxicam 7.5 MG oral Tablet; Take 1 tablet (7.5 mg total) by mouth daily.Patient's glucose level was elevated March 2023. There are no recent labs on her. Blood pressure is also elevated today in office currently not taking any blood pressure medication. Will need to determine if patient is diabetic prior to surgery. Will also need to get her blood pressure under control before being able to be cleared.Funmilayo ZAMBRANOectronically signed by Carol Zambrano FNP-C at 06/01/2023 6:00 PM [id number] and physical tdemHX5952-75-45U45:00:06History and physical [id number]. [id number] for patient wgah33498-4Ddfvjup and physical noteLNNARRATIVEFormatted C-CDA narrative textC[facility] [facility] [id number] [id number]:00:[id number] 2.3.15|1.2.840.462327.1.13.131.2.7.2. [id number] [facility] Notes Date/Time Note Provider Source 2023-07-12 10:10:09 [id number] T/gVh3s6K+OmzM2K3 sdIEiVIBGyoorNOqRPv63dE6sdl0564-52-89 T10:10:09 Chief ComplaintPatient presents withBlood PressureBlood pressure has been elevated the past couple of days. Hot flashes at night and not sleeping well since the surgeryNiki Quinonezronically signed by Oumou Hess LVN at 07/12/2023 10:10 AM [id number] CkbhYO6556-08-46A90:10:33Nurse [id number]. [id number] for patient mnps94285-3Elxsi NoteLNNARRATIVEFormatted C-CDA narrative textC[facility] Hospital[address] [facility] [id number] [id number]:10:331.2.840.251182.1.7 2.3.15|1.2.840.088242.1.13.131.2.7.2. [id number] [facility] 2023-05-31 16:16:58 /mfi66OJuFbBGrpecUOP xwniTuj8lhj1QL4Nt siTTrpSsAk6QgS7O3P8vsh4tJ/b2777-11-20 T16:16:58 Chief ComplaintPatient presents withPre-Op ExamSurgical clearance for left shoulder surgery on June 22, [address] [id number] GowuXX7292-84-34M39:17:23Nurse [id number].2. [id number] for patient fznl11479-7Kznae NoteLNNARRATIVEFormatted C-CDA narrative textC[facility] Hospital[address] [facility] [id number] [id number]:17:231.2.840.186080.1.7 2.3.15|1.2.840.008215.1.13.131.2.7.2. [id number] [facility]
[2023-07-21 22:35] LABS: Absolute Eosinophils 0.2 K/uL (0-0.5); Absolute Lymphocytes (CBC) 2.5 K/uL (0.7-4.9); Absolute Monocytes 0.4 K/uL (0.1-1.3); Absolute Neutrophil 2.8 K/uL (1.8-8.0); Basophils % 0.5 % (0-1.3); Eosinophils % 3.5 % (0-4.4); Hematocrit 37.6 % (36.0-45.0); Hemoglobin 12.6 g/dL (12.0-15.0); Lymphocytes % 42.2 % (15.3-44.8); MCH 28.4 pg (27.0-35.0); MCHC 33.6 g/dL (32.0-36.0); MCV 84.6 fL (80-100); MPV 8.7 fL (7.6-11.3); Monocytes % 6.9 % (3.3-12.3); Neutrophils % 46.9 % (41.7-73.7); Nucleated Red Blood Cells % 0.1 % (0-0); Platelets 293 thou/uL (152-406); RBC Red Blood Cell Count 4.44 M/uL (3.86-4.86); Red Cell Distribution Width 13.4 % (12.1-15.2)
[2023-07-21 22:49] LABS: PT Prothrombin Time 12.5 SECONDS (9.5-12.5); Protime INR 1.14
[2023-07-21] MEDS ORDERED: ASPIRIN 81 MG CHEWABLE TABLET ONE (22:51)
[2023-07-21] MEDS ORDERED: LORazepam 2 MG/ML VIAL ONE (22:51)
[2023-07-21 22:57] LABS: ALT/SGPT 25 U/L (13-56); AST/SGOT 14 U/L (15-37); Albumin 3.6 g/dL (3.4-5.0); Alkaline Phosphatase 81 U/L (45-117); BUN Blood Urea Nitrogen 15 mg/dL (7-18); Bicarbonate 28 mEq/L (21-32); Bilirubin Total 0.4 mg/dL (0.2-1.0); Globulin 3.7 g/dL (2.3-3.5); Glomerular Filtration Rate 65 ml/min (=/>90); Glucose Level 116 mg/dL (74-106); Magnesium 2.4 mg/dL (1.6-2.4); NT PRO-BNP 35 pg/mL (<125); Protein, Total 7.3 g/dL (6.4-8.2); Sodium Level 140 mEq/L (136-145)
[2023-07-21 23:00] LABS: Bilirubin Direct < 0.1 mg/dL (0-0.2); Bilirubin Indirect, Calculated ND mg/dL (0.2-0.8); Troponin High Sensitivity < 3.0 pg/mL (<58.9)
--- NOTE | 2023-07-22 01:19 | ER ---
Nurse's Notes [facility] Name: Mady Her Age: 62 yrs Sex: Female : 1960 Arrival Date: 07/21/2023 Time: 21:33 Bed 15 Private MD: Diagnosis: Pulmonary embolism without acute cor pulmonale Presentation: 07/20 21:46 Chief complaint: Patient's son or daughter states: pt had sx 3/ and ever since pt has as6 had a hard time sleeping and having chest pressure. Coronavirus screen: At this time, the client does not indicate any symptoms associated with coronavirus-19. Ebola Screen: No symptoms or risks identified at this time. Initial Sepsis Screen: Does the patient meet any 2 criteria? No. Patient's initial sepsis screen is negative. Does the patient have a suspected source of infection? No. Patient's initial sepsis screen is negative. Risk Assessment: Do you want to hurt yourself or someone else? Patient reports no desire to harm self or others. Onset of symptoms was June 24, 2023. 21:46 Method Of Arrival: Ambulatory as6 21:46 Acuity: MAYA 3 as6 Triage Assessment: 21:49 General: Appears in no apparent distress. Behavior is calm, cooperative. Pain: as6 Complains of pain in chest and left arm. Cardiovascular: Reports chest pain. Historical: - Allergies: 21:47 No Known Allergies; as6 - Home Meds: 21:47 lisinopril 10 mg oral tablet 1 tab daily [Active]; as6 - PMHx: 21:47 Hypertensive disorder; as6 - PSHx: 21:47 section; shoulder ( section); as6 - Immunization history:: Adult Immunizations up to date. - Social history:: Smoking status: Patient denies any tobacco usage or history of. Screenin:56 [facility] ED Fall Risk Assessment (Adult) History of falling in the last 3 months, tm6 including since admission No falls in past 3 months (0 pts) Confusion or Disorientation No (0 pts) Intoxicated or Sedated No (0 pts) Impaired Gait No (0 pts) Mobility Assist Device Used No (0 pt) Altered Elimination No (0 pt) Score/Fall Risk Level 0 - 2 = Low Risk Oriented to surroundings, Maintained a safe environment. Abuse screen: Denies threats or abuse. Denies injuries from another. Nutritional screening: No deficits noted. Tuberculosis screening: No symptoms or risk factors identified. Assessment: 22:57 General: Appears in no apparent distress. Behavior is calm, cooperative. Pain: tm6 Complains of pain in left arm and chest Pain does not radiate. Pain currently is 7 out of 10 on a pain scale. Quality of pain is described as pressure, Pain began one month ago. Neuro: Level of Consciousness is awake, alert, obeys commands, Oriented to person, place, time, situation. Cardiovascular: Reports chest pain, since June 21 Patient's skin is warm and dry. Rhythm is regular. Respiratory: Airway is patent Respiratory effort is even, unlabored, Respiratory pattern is regular, symmetrical. GI: No signs and/or symptoms were reported involving the gastrointestinal system. Abdomen is round non-distended. : No signs and/or symptoms were reported regarding the genitourinary system. EENT: No signs and/or symptoms were reported regarding the EENT system. Derm: No signs and/or symptoms reported regarding the dermatologic system. Musculoskeletal: Reports pain in back. 07/21 00:32 Reassessment: Patient and/or family updated on plan of care and expected duration. Pain tm6 level reassessed. Patient is alert, oriented x 3, equal unlabored respirations, skin warm/dry/pink. Patient states feeling better. Vital Signs: 07/20 21:46 BP 160 / 82; Pulse 80; Resp 18 S; Temp 98.6(O); Pulse Ox 97% on R/A; as6 21:48 Weight 86.18 kg (R); Height 5 ft. 3 in. (R); Pain 5/10; as6 22:57 BP 145 / 73; Pulse 82; Pulse Ox 96% on R/A; Pain 7/10; tm6 07/21 00:32 BP 122 / 66; Pulse 78; Pulse Ox 100% on R/A; Pain 0/10; tm6 07/20 21:48 Body Mass Index 33.66 (86.18 kg, 160.02 cm) as6 21:48 Pain Scale: Adult as6 22:57 Pain Scale: Adult tm6 07/21 00:32 Pain Scale: Adult tm6 ED Course: 07/20 21:37 Patient arrived in ED. im 21:43 Zhou Moulton PA is PHCP. cp 21:43 Zhou Dickey MD is Attending Physician. cp 21:46 Arm band placed on. as6 21:47 Triage completed. as6 22:17 Yaquelin Cardona, RN is Primary Nurse. tm6 22:17 EKG done, by ED staff, reviewed by Zhou MEHTA. tm6 22:47 XRAY Chest (1 view) In Process Unspecified. EDMS 22:48 Warm blanket given. kmf 22:48 Basic Metabolic Panel Sent. tm6 22:48 D-Dimer Sent. tm6 22:48 LFT's Sent. tm6 22:48 Magnesium Sent. tm6 22:48 NT PRO-BNP Sent. tm6 22:48 PT-INR Sent. tm6 22:48 Troponin HS Sent. tm6 22:48 Inserted saline lock: 22 gauge in right antecubital area, using aseptic technique. tm6 22:56 Patient has correct armband on for positive identification. Placed in gown. Bed in low tm6 position. Call light in reach. Side rails up X2. Provided Education on: plan of care. Client placed on continuous cardiac and pulse oximetry monitoring. NIBP monitoring applied. engine monitor on. Pulse ox on. NIBP on. 07/21 00:20 CT Chest For PE Angio In Process Unspecified. EDMS 01:18 Alison Messina MD is Hospitalizing Provider. cp 02:36 Extrem Venous W Compress J Carlos In Process Unspecified. EDMS Administered Medications: 07/20 22:56 Drug: Aspirin PO Chewable Tablet 324 mg PO once; 81 mg tablets x 4 Route: PO; tm6 22:56 Drug: Ativan IVP 1 mg IVP once Route: IVP; Site: right antecubital; tm6 07/21 01:30 Drug: Enoxaparin Sub-Q 1 mg/kg Sub-Q once Route: Sub-Q; Site: right lower abdomen; tm6 Outcome: 01:19 Decision to Hospitalize by Provider. cp 16:52 Patient left the ED. kc6 Signatures: Dispatcher [employer] EDMS Zhou Moulton PA PA cp Slawson, Ashby, RN RN as6 Silvina Gamez RN RN kc6 Marisol Johnson Kelsey Maroul km Yaquelin Cardona, RN RN tm6
--- NOTE | 2023-07-22 01:19 | EDPHYS ---
Physician Documentation [facility] Name: Mady Her Age: 62 yrs Sex: Female : 1960 Arrival Date: 07/21/2023 Time: 21:33 Bed 15 Private MD: ED Physician Zhou Dickey HPI: 07/20 22:00 This 62 yrs old Female presents to ER via Ambulatory with complaints of cp Anxiety, Chest Pressure, Lack of sleep, Eye Problem - Dark spots. 22:00 The patient has shortness of breath with light activity. cp 22:00 Onset: The symptoms/episode began/occurred gradually. cp 22:00 Duration: The symptoms are continuous, and are steadily getting worse. The patient or cp guardian reports chest pain that is located primarily in the anterior chest wall. The pain does not radiate. Associated signs and symptoms: Pertinent positives: anxiety, difficulty sleeping, Pertinent negatives: non-productive cough, productive cough, fever, vomiting. The chest pain is described as a pressure. Daughter translates and reports patient with left shoulder surgery on 06/22/2023. Historical: - Allergies: 21:47 No Known Allergies; as6 - Home Meds: 21:47 lisinopril 10 mg oral tablet 1 tab daily [Active]; as6 - PMHx: 21:47 Hypertensive disorder; as6 - PSHx: 21:47 section; shoulder ( section); as6 - Immunization history:: Adult Immunizations up to date. - Social history:: Smoking status: Patient denies any tobacco usage or history of. ROS: 22:05 Constitutional: Negative for body aches, chills, fever, poor PO intake, cp 22:05 Eyes: Negative for injury, pain, redness, and discharge, cp 22:05 ENT: Negative for drainage from ear(s), ear pain, sore throat, difficulty swallowing, difficulty handling secretions, 22:05 Cardiovascular: Positive for chest pressure, Negative for edema, 22:05 Respiratory: Positive for shortness of breath, Negative for cough, wheezing, 22:05 Abdomen/GI: Negative for abdominal pain, vomiting, diarrhea, constipation, 22:05 Neuro: Negative for altered mental status, dizziness, headache, numbness, syncope, near syncope, weakness, 22:05 Psych: Positive for anxiety, insomnia, 22:05 All other systems are negative, Exam: 22:10 ECG was reviewed by the Attending Physician. cp 22:12 Constitutional: The patient appears in no acute distress, alert, awake, cp non-diaphoretic, non-toxic, well developed, well nourished, 22:12 Head/Face: Normocephalic, atraumatic. cp 22:12 Eyes: Periorbital structures: appear normal, Pupils: equal, round, and reactive to light and accomodation, Extraocular movements: intact throughout, Conjunctiva: normal, no exudate, no injection, Sclera: no appreciated abnormality, Lids and lashes: appear normal, bilaterally, 22:12 ENT: External ear(s): are unremarkable, Nose: is normal, Mouth: Lips: moist, Oral mucosa: pink and intact, moist, Posterior pharynx: Airway: no evidence of obstruction, patent, swelling, is not appreciated, erythema, is not appreciated, 22:12 Neck: ROM/movement: is normal, is supple, without pain, no range of motions limitations, 22:12 Chest/axilla: Inspection: normal, 22:12 Cardiovascular: Rate: normal, Rhythm: regular, Edema: is not appreciated, JVD: is not appreciated, 22:12 Respiratory: the patient does not display signs of respiratory distress, Respirations: normal, no use of accessory muscles, no retractions, labored breathing, is not present, Breath sounds: decreased breath sounds, are not appreciated, stridor, is not appreciated, wheezing: is not appreciated, 22:12 Abdomen/GI: Inspection: abdomen appears normal, Bowel sounds: active, all quadrants, Palpation: abdomen is soft and non-tender, in all quadrants, rebound tenderness, is not appreciated, involuntary guarding, is not appreciated, 22:12 Back: pain, is absent, ROM is normal, 22:12 Skin: no rash present. 22:12 Neuro: Orientation: to person, place \T\ time. Mentation: is normal, Motor: moves all fours, strength is normal, Sensation: is normal, Vital Signs: 21:46 BP 160 / 82; Pulse 80; Resp 18 S; Temp 98.6(O); Pulse Ox 97% on R/A; as6 21:48 Weight 86.18 kg (R); Height 5 ft. 3 in. (R); Pain 5/10; as6 22:57 BP 145 / 73; Pulse 82; Pulse Ox 96% on R/A; Pain 7/10; tm6 07/21 00:32 BP 122 / 66; Pulse 78; Pulse Ox 100% on R/A; Pain 0/10; tm6 07/20 21:48 Body Mass Index 33.66 (86.18 kg, 160.02 cm) as6 21:48 Pain Scale: Adult as6 22:57 Pain Scale: Adult tm6 07/21 00:32 Pain Scale: Adult tm6 MDM: 07/20 21:49 Patient medically screened. amanda 23:00 Differential diagnosis: abnormal EKG, acute myocardial infarction, acute pericarditis, cp congestive heart failure pneumonia, Pneumothorax pulmonary edema, Pulmonary Embolism Sepsis Unstable Angina. 07/21 01:25 The patient was given aspirin in the Emergency Department. cp 01:25 Antibiotic administration: Not indicated, the patient does not have an appreciated cp infiltrate. Data reviewed: vital signs, nurses notes, lab test result(s), EKG, radiologic studies, CT scan, plain films, and as a result, I will admit patient. Management of patient was discussed with the following: Hospitalist: DR Messina will admit after discussion. Independent interpretation of the following test(s) in the Emergency Department EKG: See my EKG interpretation above. 07/20 21:50 Order name: Basic Metabolic Panel; Complete Time: 23:22 cp 07/21 01:31 Interpretation: Normal except: GLUC 116; GFR 65. cp 07/20 21:50 Order name: CBC with Diff; Complete Time: 23:22 cp 07/20 21:50 Order name: D-Dimer; Complete Time: 23:22 cp 07/21 01:32 Interpretation: Reviewed. cp 07/20 21:50 Order name: LFT's; Complete Time: 23:22 cp 07/20 21:50 Order name: Magnesium; Complete Time: 23:22 cp 07/20 21:50 Order name: NT PRO-BNP; Complete Time: 23:22 cp 07/20 21:50 Order name: PT-INR; Complete Time: 23:22 cp 07/20 21:50 Order name: Troponin HS; Complete Time: 23:22 cp 07/20 21:50 Order name: Urinalysis W/Microscopic cp 07/21 01:44 Order name: CBC with Automated Diff EDMS 07/21 01:44 Order name: CBC with Automated Diff EDMS 07/21 01:44 Order name: Comprehensive Metabolic Panel EDMS 07/21 01:44 Order name: Comprehensive Metabolic Panel EDMS 07/21 01:44 Order name: Troponin High Sensitivity EDMS 07/21 01:44 Order name: Troponin High Sensitivity EDMS 07/21 01:44 Order name: Troponin High Sensitivity EDMS 07/20 21:50 Order name: XRAY Chest (1 view) 07/20 23:22 Order name: CT Chest For PE Angio cp 07/21 01:44 Order name: Echo with Doppler EDMS 07/21 01:44 Order name: Extrem Venous W Compress J Carlos EDMS 07/20 21:50 Order name: Cardiac monitoring; Complete Time: 22:20 cp 07/20 21:50 Order name: EKG - Nurse/Tech; Complete Time: 22:20 cp 07/20 21:50 Order name: IV Saline Lock; Complete Time: 22:48 cp 07/20 21:50 Order name: Labs collected and sent; Complete Time: 22:48 cp 07/20 21:50 Order name: O2 Per Protocol; Complete Time: 22:20 cp 07/20 21:50 Order name: O2 Sat Monitoring; Complete Time: 22:20 cp EC/30 22:10 Rate is 71 beats/min. Rhythm is regular. IA interval is normal. QRS interval is normal. cp QT interval is normal. Interpreted by me. Reviewed by me. Administered Medications: 22:56 Drug: Aspirin PO Chewable Tablet 324 mg PO once; 81 mg tablets x 4 Route: PO; tm6 22:56 Drug: Ativan IVP 1 mg IVP once Route: IVP; Site: right antecubital; tm6 07/21 01:30 Drug: Enoxaparin Sub-Q 1 mg/kg Sub-Q once Route: Sub-Q; Site: right lower abdomen; tm6 Disposition Summary: 07/22/23 01:19 Hospitalization Ordered Notes: Provider: Alison Messina cp Condition: Stable cp Problem: new cp Symptoms: have improved cp Bed/Room Type: Standard cp Hospitalization Status: Inpatient Admission(07/22/23 01:31) cp Location: Telemetry/MedSurg (Inpatient)(07/22/23 15:21) Room Assignment: 405(07/22/23 15:21) eb Diagnosis - Pulmonary embolism without acute cor pulmonale cp Forms: - Medication Reconciliation Form cp - SBAR form cp - Leadership Thank You Letter cp Signatures: Dispatcher [employer] EDMS Zhou Dickey MD MD cha Page, Corey, PA PA cp Garcia, Cindy, RN RN Kimmy Salgado Ashby RN RN as6 Yaquelin Cardona RN RN tm6 Corrections: (The following items were deleted from the chart) 07/20 21:50 21:50 BASIC METABOLIC PANEL+C.LAB.BRZ ordered. EDMS EDMS 21:50 21:50 CBC+H.LAB.BRZ ordered. EDMS EDMS 21:50 21:50 D-DIMER+COAG.LAB.BRZ ordered. EDMS EDMS 21:50 21:50 HEPATIC FUNCTION+C.LAB.BRZ ordered. EDMS EDMS 21:50 21:50 MAGNESIUM+C.LAB.BRZ ordered. EDMS EDMS 21:50 21:50 PROBNP+C.LAB.BRZ ordered. EDMS EDMS 21:50 21:50 PROTIME (+INR)+COAG.LAB.BRZ ordered. EDMS EDMS 21:50 21:50 Troponin High Sensitivity+C.LAB.BRZ ordered. EDMS EDMS 21:50 21:50 Urinalysis W/Microscopic+U.LAB.BRZ ordered. EDMS EDMS 07/21 01:31 01:19 Observation cp cp 01:31 01:19 Telemetry/MedSurg (observation) cp cp 01:31 01:19 cp cp 01:57 01:31 Telemetry/MedSurg (Inpatient) cp cg 01:57 01:31 cp cg 15:21 01:57 BR ER HOLD cg eb 15:21 01:57 ERHOLD- cg eb
[2023-07-22] MEDS ORDERED: ENOXAPARIN 100 MG/ML SYR SQ ONE ×2 (01:21→14:27)
--- NOTE | 2023-07-22 01:35 | P.HP ---
Certification for Inpatient Patient admitted to: Inpatient With expected LOS: >2 Midnights Patient will require the following post-hospital care: None Practitioner: I am a practitioner with admitting privileges, knowledge of patient current condition, hospital course, and medical plan of care. Services: Services provided to patient in accordance with Admission requirements found in Title 42 Section 412.3 of the Code of Federal Regulations Patient History Date of Service: 07/22/23 Reason for admission: Shortness of breath; chest pressure History of Present Illness: Patient is a 62-year-old female who comes to the hospital with shortness of breath. She recently had left rotator cuff surgery, and afterwards the family has noticed that she has been having some lower extremity swelling and she has been getting really anxious and short of breath. She was also having some chest pressure today so they went ahead and brought her into the emergency room for further evaluation. In the emergency room, patient was worked up and imaging studies revealed patient had a right main pulmonary arterial branch pulmonary embolism. However, they felt like this may be chronic. Patient also been having some edema of the lower extremities so we will get a venous Doppler. Otherwise, patient denies any other complaints. She was seen by cardiology for cardiac clearance for the left rotator cuff shoulder surgery a month ago and she had an EKG with no abnormalities. She was cleared for cardiac surgery. At that time, patient was not having any chest pressure or shortness of breath. 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 This is very unusual for her and the family is worried that she has been having some issues with anxiety. Will go ahead and work her up for her pulmonary embolism. She will also need malignancy screening as an outpatient, and I have advised the family to make sure she has had all her preventative screening including mammogram, colonoscopy, and Pap smear. At this time patient will be admitted to the hospital for inpatient hospitalization. She has been having some PND and orthopnea as well as dyspnea on exertion so want to get an echocardiogram to further assess her cardiac functioning. Her BNP was otherwise unremarkable. Allergies No Known Allergies Allergy (Verified 06/22/23 06:53) Home Medications: Meloxicam [Mobic] 7.5 mg PO DAILY 06/18/23 lisinopriL [Prinivil] 10 mg PO DAILY 06/18/23 - Past Medical/Surgical History Diabetic: No -: Left shoulder injury -: Osteoarthritis -: Hypertension -: C - Section -: Rotator cuff repair left shoulder - Family History Father Family History: Reviewed- Non-Contributory - Social History Smoking Status: Never smoker Alcohol use: Yes CD- Drugs: No Caffeine use: Yes Review of Systems 10-point ROS is otherwise unremarkable Physical Examination - Vital Signs Temperature: 98 F Blood Pressure: 140/80 Pulse: 80 Respirations: 18 Pulse Ox (%): 95 - Physical Exam General: Alert, In no apparent distress, Oriented x3 HEENT: Atraumatic, PERRLA, Mucous membr. moist/pink, EOMI, Sclerae nonicteric Neck: Supple, 2+ carotid pulse no bruit, No LAD, Without JVD or thyroid abnormality Respiratory: Clear to auscultation bilaterally, Normal air movement Cardiovascular: Regular rate/rhythm, Normal S1 S2, No murmurs Gastrointestinal: Normal bowel sounds, Soft and benign, Non-distended, No tenderness Musculoskeletal: No clubbing, No swelling, No tenderness Integumentary: No rashes Neurological: Normal gait, Normal speech, Normal strength at 5/5 x4 extr, Normal tone, Sensation intact, Cranial nerves 3-12 intact, Normal affect Lymphatics: No axilla or inguinal lymphadenopathy - Studies Laboratory Data (last 24 hrs) 07/21/23 07/21/23 07/21/23 22:26 22:26 22:26 WBC 6.00 Hgb 12.6 Hct 37.6 Plt Count 293 PT 12.5 INR 1.14 Sodium 140 Potassium 4.0 BUN 15 Creatinine 0.98 Glucose 116 H Magnesium 2.4 Total Bilirubin 0.4 AST 14 L ALT 25 Alkaline Phosphatase 81 Assessment & Plan - Problems (Diagnosis) (1) Pulmonary embolism Current Visit: Yes Status: Acute (2) Chest pressure Current Visit: Yes Status: Acute (3) Shortness of breath Current Visit: Yes Status: Acute (4) Sense of impending doom Current Visit: Yes Status: Acute (5) S/P left rotator cuff repair Current Visit: Yes Status: Acute (6) History of hypertension Current Visit: Yes Status: Acute - Plan Plan: 1. Patient with pulmonary embolism as well as chest pressure and shortness of breath. Patient also with lower extremity edema. CT PE protocol revealed pulmonary embolism in the distal right main pulmonary artery which extends into the right lower lobe pulmonary artery. Will continue patient on oral a nticoagulation in the morning. Patient got Lovenox this evening. Patient's symptoms also are concerning for cardiac disease. Will go ahead and do serial troponins and repeat the EKG in the morning. Will get an echocardiogram to further evaluate her cardiac functioning. Patient will get a venous Doppler to evaluate the lower extremity edema of the legs, and she will need to follow-up with her PCP as an outpatient to rule out primary malignancy as a cause of pulmonary embolism. I spoken to her and her family. She is mainly [place]- speaking but her 2 daughters were at bedside and I did relay to them further outpatient workup that should be completed. 2. History of hypertension; continue with antihypertensives 3. Left rotator cuff repair; continue with splint and pain control 4. GI and DVT prophylax Discharge Plan: Home Plan to discharge in: Greater than 2 days - Advance Directives Does patient have a Living Will: No Does patient have a Durable POA for Healthcare: No - Code Status/Comfort Care Code Status Assessed: Yes Code Status: Full Code Critical Care: No Time Spent Managing PTS Care (In Minutes): 45
[2023-07-22] MEDS ORDERED: ONDANSETRON 4 MG/2 ML VIAL IV PRN (01:38)
[2023-07-22] MEDS ORDERED: ACETAMINOPHEN 500 MG TAB PO PRN (01:38)
[2023-07-22 01:57] LABS: Sqamous Epithelial <5 /HPF (None Seen); Urine Bacteria None Seen /HPF (<20); Urine Bilirubin NEGATIVE (Negative); Urine Blood Negative (Negative); Urine Clarity Clear (Clear); Urine Color Colorless (Yellow); Urine Culture Reflex Order NOT NEEDED; Urine Glucose NEGATIVE (Negative); Urine Ketones NEGATIVE (Negative); Urine Micro Reflex YN NO BILL MICROSCOPIC; Urine Mucus Slight /HPF (None Seen); Urine Nitrite NEGATIVE (Negative); Urine Protein NEGATIVE (Negative); Urine RBC <5 /HPF (None Seen); Urine Urobilinogen Normal (Normal); Urine WBC <5 /HPF (<5); Urine Yeast (Budding) Trace /HPF (None Seen)
[2023-07-22 01:59] LABS: Specific Gravity 1.035 (1.005-1.030)
[2023-07-22] MEDS: NA CHLORIDE 0.9% 1,000 ML IV SCH (02:00)
[2023-07-22] MEDS ORDERED: NA CHLORIDE 0.9% 1,000 ML ONE ×2 (04:10→12:34)
[2023-07-22 05:12] VITALS: BMI 33.6
[2023-07-22] MEDS: INFLUENZA VACCINE (for 6+ mo) 0.5 ML DOSE IMVAC ONE (09:00)
--- NOTE | 2023-07-22 12:20 | P.PN ---
Date of Service: 07/22/23 Pt seen and examined. I agree with the note by the SIGN CARPENTER. Pt is a 62 yo female with past medical history of Htn who recently had left rotator cuff surgery who presents with SOB and leg edema. A/P: Pulmonary embolism: CT PE protocol showed pulmonary embolism in the distal right main pulmonary artery which extends into the right lower lobe pulmonary artery. Will continue lovenox 1mg /kg subq BID. Will switch to Eliquis before discharge. Pt has elevated troponin. Will f/u Echo to r/o RV strain. f/u doppler ultrasound. Pt need to follow up with PCP to r/o primary malignancy History of hypertension: continue with antihypertensives Left rotator cuff repair: continue with splint and pain control GI ppx: protonix DVT ppx: lovenox Discharge Plan: Home
[2023-07-22] MEDS ORDERED: MORPHINE 2 MG/ML SYR ONE (12:34)
[2023-07-22] MEDS: ENOXAPARIN 100 MG/ML SYR SQ SCH (13:00)
[2023-07-22] MEDS: MORPHINE 2 MG/ML SYR IV PRN (13:12)
--- NOTE | 2023-07-22 16:58 | RAD REPORT ---
EXAM DESCRIPTION: US - Extrem Venous W Compress J Carlos - 07/22/2023 2:34 am CLINICAL HISTORY: Female, 62 years old, DVT COMPARISON: Same-day CT Chest Angiogram TECHNIQUE: Grayscale and color/spectral Doppler ultrasound of the bilateral lower extremities. FINDINGS: Intraluminal, heterogeneously hypoechoic filling defect within the right popliteal vein. Otherwise normal flow and compressibility in the bilateral lower extremities common femoral, greater saphenous, femoral, popliteal, peroneal and posterior tibial veins. Visualized waveforms demonstrate normal respiratory variability. IMPRESSION: 1. Nonocclusive, chronic appearing thrombus within the right popliteal vein. 2. No sonographic evidence of deep venous thrombosis in the imaged left lower extremity. 3. Notification of the ordering PA was performed for positive pulmonary embolism on same-day compar landry exam. Electronically signed by: Myles Sloan MD 07/22/2023 04:14 AM CDT Due to temporary technical issues with the PACS/Fluency reporting system, reports are being signed by the in house radiologists without review as a courtesy to insure prompt reporting. The interpreting radiologist is fully responsible for the content of the report
--- NOTE | 2023-07-22 17:00 | RAD REPORT ---
EXAM DESCRIPTION: CT - Chest For Pe Angio - 07/22/2023 7:02 am THIS REPORT CONTAINS FINDINGS THAT MAY BE CRITICAL TO PATIENT CARE: The findings were verbally discus sed via telephone conference with JANINE Epperson Page by Dr. Cyn Stephens on 07/22/2023 12:40 AM CDT . The re sults were acknowledged and understood. EXAM DESCRIPTION: Chest For Pe Angio CLINICAL HISTORY: 62 years Female CHEST PAIN TECHNIQUE: Contiguous axial images obtained through the chest were obtained from the thoracic inlet to the level of the upper abdomen during the pulmonary arterial phase of intravenous contrast adminis tration. Coronal and sagittal reformatted and multiplanar MIP images provided. This CT exam was performed according to our departmental dose-optimization program, which includes on e or more of the following dose reduction techniques: automated exposure control, adjustment of the m A and/or kV according to patient size, and/or use of iterative reconstruction technique. COMPARISON: No prior exams provided for comparison. FINDINGS: There is a web-like filling defect in the distal right main pulmonary artery extending int o the right lower lobar pulmonary artery. This is consistent with a chronic, nonocclusive pulmonary e mbolus. No other central pulmonary embolus. Cannot confirm nor exclude peripheral pulmonary emboli du e to patient motion. No evidence of right ventricular strain. Mild cardiomegaly without pericardial effusion. Mild atherosclerosis without thoracic aortic aneurysm or dissection. No lymphadenopathy in the chest. Aside from mild patchy bilateral atelectasis, the lungs are clear without consolidation, effusion, or pneumothorax. No enlarged mediastinal lymph nodes. There are no visualized acute osseous or upper abdominal abnormalities. IMPRESSION: Chronic, nonocclusive pulmonary embolus in the distal right main pulmonary artery extend ing into the right lower lobar pulmonary artery. No other central pulmonary embolus. Cannot confirm n or exclude peripheral pulmonary emboli due to patient motion. No evidence of right ventricular strain . No other acute findings in the chest. Electronically signed by: Cyn Stephens MD 07/22/2023 12:41 AM CDT Due to temporary technical issues with the PACS/Fluency reporting system, reports are being signed by the in house radiologists without review as a courtesy to insure prompt reporting. The interpreting radiologist is fully responsible for the content of the report
--- NOTE | 2023-07-22 17:01 | RAD REPORT ---
EXAM DESCRIPTION: RAD - Chest Single View - 07/21/2023 10:45 pm CLINICAL HISTORY: 2 years Female, CHEST PAIN COMPARISON: Chest radiograph dated 06/18/2023 IMPRESSION: Low lung volumes. Prominence of the hilar structures. No focal consolidation. No pleural effusion. No pneumothorax. Cardiomediastinal silhouette is within normal limits. No acute osseous abnormality. Electronically signed by: Cristino Pearson DO 07/21/2023 11:17 PM CDT Due to temporary technical issues with the PACS/Fluency reporting system, reports are being signed by the in house radiologists without review as a courtesy to insure prompt reporting. The interpreting radiologist is fully responsible for the content of the report
[2023-07-22] MEDS: SIMETHICONE 80 MG CHEWABLE TAB PO ONE (20:47)
[2023-07-22] MEDS: lisinopriL 10 MG TAB PO SCH (20:47)
[2023-07-22] MEDS: LORazepam 2 MG/ML VIAL IV ONE (21:17)
[2023-07-23 07:15] LABS: Absolute Eosinophils 0.2 K/uL (0-0.5); Absolute Lymphocytes (CBC) 2.6 K/uL (0.7-4.9); Absolute Monocytes 0.3 K/uL (0.1-1.3); Absolute Neutrophil 1.6 K/uL (1.8-8.0); Basophils % 0.9 % (0-1.3); Eosinophils % 4.7 % (0-4.4); Hematocrit 35.8 % (36.0-45.0); Hemoglobin 11.9 g/dL (12.0-15.0); MCH 28.4 pg (27.0-35.0); MCHC 33.4 g/dL (32.0-36.0); MCV 85.2 fL (80-100); MPV 8.8 fL (7.6-11.3); Monocytes % 5.8 % (3.3-12.3); Neutrophils % 33.6 % (41.7-73.7); Nucleated Red Blood Cells % 0.2 % (0-0); Platelets 240 thou/uL (152-406); Red Cell Distribution Width 13.5 % (12.1-15.2)
[2023-07-23 07:25] LABS: Albumin 3.3 g/dL (3.4-5.0); Anion Gap 6.9 mEq/L (5.0-15.0); Bilirubin Total 0.4 mg/dL (0.2-1.0); Globulin 3.3 g/dL (2.3-3.5); Potassium 3.9 mEq/L (3.5-5.1); Protein, Total 6.6 g/dL (6.4-8.2)
[2023-07-23 08:29] VITALS: O2SAT 98
--- NOTE | 2023-07-23 11:04 | P.PN ---
Subjective Date of Service: 07/23/23 Chief Complaint: Shortness of breath; chest pressure Pt is resting comfortably in bed. She denies any chest pain or SOB. She is tolerating therapeutic lovenox. Waiting for Echo. Will switch to Eliquis. No other complaints. Review of Systems General: Unremarkable Eyes: Unremarkable ENT: Unremarkable Respiratory: Unremarkable Cardiovascular: Unremarkable Gastrointestinal: Unremarkable Genitourinary: Unremarkable Musculoskeletal: Unremarkable Integumentary: Unremarkable Neurological: Unremarkable Lymphatics: Unremarkable Physical Examination - Vital Signs Temperature: 97.4 F Blood Pressure: 127/59 Pulse: 67 Respirations: 16 Pulse Ox (%): 97 - Physical Exam General: Alert, In no apparent distress, Oriented x3 HEENT: Atraumatic, Normocephalic, PERRLA Neck: Supple, 2+ carotid pulse no bruit, JVD not distended Respiratory: Clear to auscultation bilaterally, Normal air movement Cardiovascular: No edema, Normal pulses, Regular rate/rhythm, Normal S1 S2 Capillary refill: <2 Seconds Gastrointestinal: Normal bowel sounds, Soft and benign, Non-distended Musculoskeletal: No clubbing, No swelling Integumentary: No rashes, No breakdown, No significant lesion Neurological: Normal speech, Normal strength at 5/5 x4 extr, Normal tone, Sensation intact Lymphatics: No axilla or inguinal lymphadenopathy Assessment And Plan - Plan Pulmonary embolism: CT PE protocol showed pulmonary embolism in the distal right main pulmonary artery which extends into the right lower lobe pulmonary artery. Will continue lovenox 1mg /kg subq BID. Will switch to Eliquis 10mg po BID for 1 week, then continue Eliquis 5 mg po BID. Pt has elevated troponin. Will f/u Echo to r/o RV strain. f/u doppler ultrasound. Pt need to follow up with PCP to r/o primary malignancy History of hypertension: continue with antihypertensives Left rotator cuff repair: continue with splint and pain control GI ppx: protonix DVT ppx: lovenox Discharge Plan: Home
[2023-07-23 12:57] VITALS: BP 143/67; TEMP 97.9
--- NOTE | 2023-07-23 13:43 | EKG ---
Test Date: 2023-07-21 Test Time: 22:01:04 Rn Examiner: JO ANN MEASUREMENT RESULTS: Intervals: Rate: 71 LA: 144 QRSD: 90 QT: 392 QTc: 425 Gilson: P: 45 LA: 144 QRS: -22 T: 107 INTERPRETIVE STATEMENTS: Normal sinus rhythm Minimal voltage criteria for LVH, may be normal variant Nonspecific T wave abnormality Abnormal ECG Compared to ECG 06/18/2023 11:04:57 Left ventricular hypertrophy now present Left-axis deviation no longer present T-wave abnormality still present Electronically Signed On 07-23-23 13:37:26 CDT by Bernard Thacker
--- NOTE | 2023-07-23 13:59 | P.DS ---
Admission Date: 07/22/23 Discharge Date: 07/23/23 Disposition: ROUTINE DISCHARGE Discharge Condition: GOOD Reason for Admission: Shortness of breath; chest pressure Brief History of Present Illness: Patient is a 62-year-old female who comes to the hospital with shortness of breath. She recently had left rotator cuff surgery, and afterwards the family has noticed that she has been having some lower extremity swelling and she has been getting really anxious and short of breath. She was also having some chest pressure today so they went ahead and brought her into the emergency room for further evaluation. In the emergency room, patient was worked up and imaging studies revealed patient had a right main pulmonary arterial branch pulmonary embolism. However, they felt like this may be chronic. Patient also been having some edema of the lower extremities so we will get a venous Doppler. Otherwise, patient denies any other complaints. She was seen by cardiology for cardiac clearance for the left rotator cuff shoulder surgery a month ago and she had an EKG with no abnormalities. She was cleared for cardiac surgery. At that time, patient was not having any chest pressure or shortness of breath. 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 This is very unusual for her and the family is worried that she has been having some issues with anxiety. Will go ahead and work her up for her pulmonary embolism. She will also need malignancy screening as an outpatient, and I have advised the family to make sure she has had all her preventative screening including mammogram, colonoscopy, and Pap smear. At this time patient will be admitted to the hospital for inpatient hospitalization. She has been having some PND and orthopnea as well as dyspnea on exertion so want to get an echocardiogram to further assess her cardiac functioning. Her BNP was otherwise unremarkable. Hospital Course: Patient is a 62yo female with past medical history of htn and recent left rotator cuff surgery who presented with SOB and leg edema. Pt was not active after her surgery. She was mostly sitting down. On admission, CTA chest showed pulmonary embolism in the distal right main pulmonary artery which extended into the right lower lobe pulmonary artery. We gave lovenox 1mg /kg subq BID and later switched to Eliquis 10mg po BID for 1 week, then continued Eliquis 5 mg po BID for at least 3 - 6 months. Pt had elevated troponin due to the PE. CTA chest was negative for RV strain. Pt was advised to followup with Dr. Thacker for Echo. She was also advised to follow up with PCP for malignancy work up. We stopped meloxicam due to interaction with Eliquis. Pt was advised to come back to the ER if she sees any GI bleed or hematuria. Vital Signs/Physical Exam: Temp Pulse Resp BP Pulse Ox 97.9 F 71 16 143/67 H 97 07/23/23 12:00 07/23/23 12:00 07/23/23 12:01 07/23/23 12:00 07/23/23 12:01 Laboratory Data at Discharge: WBC 4.70 thou/uL (4.3-10.9) 07/23/23 06:45 Hgb 11.9 g/dL (12.0-15.0) L 07/23/23 06:45 Hct 35.8 % (36.0-45.0) L 07/23/23 06:45 Plt Count 240 thou/uL (152-406) 07/23/23 06:45 PT 12.5 SECONDS (9.5-12.5) 07/21/23 22:26 INR 1.14 07/21/23 22:26 Sodium 140 mEq/L (136-145) 07/23/23 06:45 Potassium 3.9 mEq/L (3.5-5.1) 07/23/23 06:45 BUN 13 mg/dL (7-18) 07/23/23 06:45 Creatinine 0.51 mg/dL (0.55-1.02) L 07/23/23 06:45 Glucose 94 mg/dL (74-106) 07/23/23 06:45 Magnesium 2.4 mg/dL (1.6-2.4) 07/21/23 22:26 Total Bilirubin 0.4 mg/dL (0.2-1.0) 07/23/23 06:45 AST 11 U/L (15-37) L 07/23/23 06:45 ALT 21 U/L (13-56) 07/23/23 06:45 Alkaline Phosphatase 61 U/L (45-117) 07/23/23 06:45 Home Medications: lisinopriL [Prinivil*] 10 mg PO DAILY 06/18/23 Apixaban [Eliquis] 5 mg PO BID 90 Days #180 tablet 07/23/23 New Medications: Apixaban [Eliquis] 5 mg PO BID 90 Days #180 tablet Physician Discharge Instructions: Continue ad bruce activity. Take 10mg po BID for 1 week, then switch to 5mg po BID for at least 3 - 6 months. Stop taking meloxicam. Follow up with PCP for malignancy work up. Follow up with Dr. Thacker within 1 week for Echo in order to rule out RV strain Diet: AHA Activity: Ad bruce Followup: Kevin Nice DO [Primary Care Provider] -
== END 2023-07-23 15:00 | disposition home or self-care (01) | DRG 176 ==
LOC: ER 21:33 → ERHOLD 07-22 01:38 → 4TH 07-22 15:30
PROVIDERS: ADMIT Hospitalist; ATTEND Hospitalist
DX: I26.99 Other pulmonary embolism without acute cor pulmonale (principal); F41.9 Anxiety disorder, unspecified; I10 Essential (primary) hypertension; R79.89 Other specified abnormal findings of blood chemistry; Z79.01 Long term (current) use of anticoagulants; Z79.899 Other long term (current) drug therapy
CPT/HCPCS: 36415; 71045; 71275; 80048; 80053; 80076; 81001; 83735; 83880; 84484; 85025; 85379; 85610; 93005; 93970; 96372; 96374; 99285; J1650; J2270; J2405; J7030; Q9967

== ENCOUNTER 2023-07-24 17:40 | Emergency (ER) | payer OTHER ==
--- OUTSIDE RECORDS SUMMARY | 2023-07-24 17:44 | XMS REPORT | Continuity of Care Document ---
Author Name Unknown Address [address] [facility] [address] thconnect Address [address] [facility] [address] [place] [address] Care Team Providers Care Quality Officer Name Role Phone Gayle Boudreaux Attending Clinician Unavailable CAROL ZAMBRANO Attending Clinician Unavailable DOLORES BAUER Attending Clinician Unavailab BENIGNO Fair Attending Clinician Unav DARNELL Spencer Attending Clinician Unavailable MD SIRISHA Attending Clinician Unavailab JOLEEN Mcconnell Attending Clinician Unavailabl e LAB90 Attending Clinician Unavailable GAYLE BOUDREAUX Attending Clinician Unava ilROBERT Duncan Attending Clinician Unavailable Gayle Boudreaux Admitting Clinician Unavailable Payers Payer Name Policy Type Policy Number Effective Date Expirati on Date Source [employer]ET[employer] [place] [facility] [employer]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 9 [id number] 2022 00:00:00 [facility] [employer] 9 [id number] 2023 00:00:00 Social History Social Habit Start Date Stop Date Quantity Comments Source Sexual orientation Esther Ulrich - External Alcohol intake 2023-07-12 00:00:00 2023-07-12 00:00:00 Lifetime non-drinker (finding) Casi Ulrich - External History of Social function 2023-01-17 00:00:00 2023-01-17 00:00:00 Casi Seybold - External Sex Assigned At 1960 00:00:00 1960 00:00:00 Casi Spann Smoking Status Start Date Stop Date Source Never smoked tobacco Casi Spann Medications Ordered Medication Name Filled Medication Name Start Date Stop Date Current Medication? Ordering Clinician Indication Dosage Frequency Signature (SIG) Comments Components Source Trazodone HCl 50 MG oral Tablet 07-11 00:00: 00 Yes [id number] 50mg Take 1 tablet (50 mg total) by mouth nightly. Casi murillo Lisinopril 10 MG oral Tablet 14 00:00: 00 Yes [id number] 10mg TAKE 1 TABLET BY MOUTH EVERY [...] MG oral Tablet 05-31 00:00: 00 Yes [id number] 7.5mg Take 1 tablet (7.5 mg total) by mouth daily. Casi murillo Ketorolac Tromethamin e (TORADOL) 30 mg/mL 2022-04 22:45: 00 03-30 22:56 :00 No [id number] 30mg Casi murillo methylPREDN ISolone 4 MG oral Tablet Therapy Pack 2022-04 00:00: 00 05-31 00:00 :00 No [id number] 1{huseyin} Take 1 huseyin by mouth See Admin Instructio ns Use as directed. Casi murillo Meloxicam 7.5 MG oral Tablet 2023-1 2-08 00:00: 00 05-31 00:00 :00 No [id number] 7.5mg Take 1 tablet (7.5 mg total) by mouth daily. Casi murillo Methylpredn isolone Acetate (Depo-Medro l) 40 mg/ml - Physician Administere d ([id number]) 2022-04 005 14:15: 00 01-25 22:40 :00 No [id number] 9104 40mg Casi murillo methylPREDN ISolone 4 MG oral Tablet Therapy Pack 01-17 00:00: 00 05-31 00:00 :00 No [id number] 1{huseyin} Take 1 huseyin by mouth See Admin Instructio ns Use as directed. Casi murillo Diclofenac Sodium 75 MG oral Tablet Delayed Response 01-17 00:00: 00 05-31 00:00 :00 No [id number] 75mg Take 1 tablet (75 mg total) by mouth 2 times daily. Casi murillo Gabapentin 100 MG oral Capsule 01-10 00:00: 00 05-31 00:00 :00 No 100mg Take 1 capsule (100 mg total) by mouth 3 times daily. Casi murillo Vital Signs Vital Name Observation Time Observation Value Comments S rolandce Systolic blood pressure 2023-07-12 15:02:00 138 mm[Hg] Casi babcock - External Diastolic blood pressure 2023-07-12 15:02:00 72 mm[Hg] Casi babcock - External Heart rate 2023-07-12 15:02:00 78 /min Nick Ulrich - External Body temperature 2023-07-12 15:02:00 36.72 Claudia Casi Ulrich - External Respiratory rate 2023-07-12 15:02:00 16 /min Casi Ulrich - External Body height 2023-07-12 15:02:00 160 cm Pinky Ulrich - External Body weight 2023-07-12 15:02:00 90.266 kg Pinky Ulrich - External BMI 2023-07-12 15:02:00 35.25 kg/m2 Pinky ey Seybold - External Oxygen saturation in Arterial blood by Pulse oximetry 2023-07-12 15:02:00 97 /min Casi Seybo ld - External Systolic blood pressure 2023-05-31 22:13:00 158 mm[Hg] Casi Seybo ld - External Diastolic blood pressure 2023-05-31 22:13:00 78 mm[Hg] Casi Seybo ld - External Heart rate 2023-05-31 22:13:00 [...] blood pressure 2023-03-30 22:22:00 126 mm[Hg] Casi Seybo ld - External Diastolic blood pressure 2023-03-30 [...] Pulse oximetry 2023-03-30 22:22:00 96 /min Casi Seybo ld - External Body weight 2023-01-25 13:56:00 88.633 kg Pinky ey Seybold - External BMI 2023-01-25 13:56:00 34.61 kg/m2 Pinky ey Seybold - External Systolic blood pressure 2023-01-17 14:04:00 156 mm[Hg] Casi Downso ld - External Diastolic blood pressure 2023-01-17 14:04:00 82 mm[Hg] Casi Duffybo ld - External Heart rate 2023-01-17 14:04:00 74 /min Nick y Seybold - External Body temperature 2023-01-17 14:04:00 36 Claudia Casi Seybold - External Respiratory rate 2023-01-17 14:04:00 15 /min Casi Duffybold - External Body height 2023-01-17 14:04:00 160 cm Pinky lowery Seybold - External Body weight 2023-01-17 14:04:00 88.905 kg Pinky ey Seybold - External BMI 2023-01-17 14:04:00 34.72 kg/m2 Pinky ey Seybold - External Encounters Start Date/Time End Date/Time Encounter Type Admission Type Attending [facility] Facility Care Department Encounter ID Source 2023-06-18 08:17:01 Outpatient Kanika Gayle [facility] [id number] [facility] 2023-08-13 10:00:00 2023-08-13 10:00:00 Outpatient [id number] [facility] 11:30:00 2023-07-30 11:30:00 Outpatient DOLORES BAUER [id number] [facility] 00:00:00 2023-07-24 00:00:00 Outpatient CAROL ZAMBRANO [id number] [facility] 2023-07-24 00:00:00 2023-07-24 00:00:00 Outpatient BENIGNO SWANN [id number] [facility] 2023-07-23 00:00:00 2023-07-23 00:00:00 Outpatient DARNELL DUNAWAY [id number] [facility] 2023-07-12 10:00:00 2023-07-12 10:00:00 Outpatient CAROL ZAMBRANO CASI BECERRA [id number] [facility] 2023-07-12 00:00:00 2023-07-12 00:00:00 Outpatient CASI BECERRA [id number] [facility] 2023-07-11 00:00:00 2023-07-11 00:00:00 Outpatient HUNDSmith CAROL BECERRA [id number] [facility]al[facility] 2023-07-01 00:00:00 2023-07-01 00:00:00 Outpatient HUNDSmith [facility] [id number] [facility]23-06-18 00:00:00 2023-06-18 00:00:00 Outpatient MD CASI ERIC [id number] [facility] 2023-06-18 00:00:00 2023-06-18 00:00:00 Outpatient CASI BECERRA [id number] [facility] 2023-06-11 16:00:00 2023-06-11 16:00:00 Outpatient HARI, JOLEEN CASI BECERRA [id number] Casi Seybold 2023-06-08 16:00:00 2023-06-08 16:00:00 Outpatient HARI, JOLEEN [facility] [id number] [facility] 2023-06-08 11:30:00 2023-06-08 11:30:00 Outpatient HARI, JOLEEN CASI BECERRA [id number] Casi Seybold 2023-06-08 00:00:00 2023-06-08 00:00:00 Outpatient HUNDL, CAROL CASI BECERRA [id number] [facility]asi Seybold 2023-06-07 16:15:00 2023-06-07 16:15:00 Outpatient HARI, GOODRICH CASI BECERRA [id number] Casi Seybold 2023-05-31 16:55:00 2023-05-31 16:55:00 Outpatient LABMendoza CASI BECERRA [id number] Casi Seybold 2023-05-31 16:00:00 2023-05-31 16:00:00 Outpatient HUNDL, CAROL CASI BECERRA [id number] [facility] Ulrich 2023-05-30 11:00:00 2023-05-30 11:00:00 Outpatient CAROL ZAMBRANO [id number] [facility] 2023-05-17 00:00:00 2023-05-17 00:00:00 Outpatient CASI BECERRA [id number] Casi Serg 2023-05-15 00:00:00 2023-05-15 00:00:00 Outpatient GAYLE BOUDREAUX [id number] [facility] ybadalberto 2023-05-10 00:00:00 2023-05-10 00:00:00 Outpatient CASI BECERRA [id number] [facility]asi Serg 2023-04-30 00:00:00 2023-04-30 00:00:00 Outpatient CASI BECERRA [id number] Casi Serg 2023-03-30 17:00:00 2023-03-30 17:00:00 Outpatient LABMendoza BECERRA [id number] [facility]23-[facility]-30 16:30:00 2023-03-30 16:30:00 Outpatient KANIKA GAYLE [facility] [id number] [facility] 2023-03-30 00:00:00 2023-03-30 00:00:00 Outpatient CASI BECERRA [id number] [facility] 2023-02-27 00:00:00 2023-02-27 00:00:00 Outpatient MD CASI ERIC [id number] [facility] Serg 2023-02-14 09:30:00 2023-02-14 09:30:00 Outpatient CAROL ZAMBRANO [id number] [facility] ybadalberto 2023-02-13 00:00:00 2023-02-13 00:00:00 Outpatient CAROL ZAMBRANO [id number] [facility]badal[facility]to 2023-01-25 08:40:00 2023-01-25 08:40:00 Outpatient ROBERT GARCÍA [id number] [facility]al[facility]to 2023-01-25 08:30:00 2023-01-25 08:30:00 Outpatient CASI BECERRA [id number] [facility] 2023-01-22 00:00:00 2023-01-22 00:00:00 Outpatient ROBERT GARCÍA [id number] [facility] 2023-01-18 00:00:00 2023-01-18 00:00:00 Outpatient CAR[facility]AMBRANO [id number] [facility] 2023-01-18 00:00:00 2023-01-18 00:00:00 Outpatient DARNELL DUNAWAY [id number] [facility] 2023-01-17 09:00:00 2023-01-17 09:00:00 Outpatient CAROL ZAMBRANO [id number] [facility] Ulrich 2022-08-07 17:30:13 2022-08-07 17:30:13 Outpatient SFA SFA [id number] Robert Esquivel History and Physical Notes Date/Time Note Provider Source 2023-05-31 16:26:00 [id number] OMuTHXdISxw7+VFRj W7AVGM2YH9IjN2LsXOibw/pr1hg1380-88-10 T16:26:00 Edel Bobo is a 62 year old female presents at the request of Dr. Estevez for pre-op clearance for existing shoulder issues. Edel is scheduled for surgery due to impingement syndrome .Shoulder Dr. Estevez 06/22/23There is no problem list on file [...] Carol Zambrano FNP-C at 06/01/2023 6:00 PM [id number] and physical iyshST9805-22-52H57:00:06History and physical noteTXT1.2.840.301727.1.13.131.2.7.2. 362249|[id number] for patient fmli57251-5Xdnoorl and physical noteLNNARRATIVEFormatted C-CDA narrative textProHealth Memorial Hospital Oconomowoc[address] [place], [place] [id number] 6170-49-27C98:00:061.2.840.497062.1.7 2.3.15|1.2.840.906190.1.13.131.2.7.2. [id number] [facility] Notes Date/Time Note Provider Source 2023-07-12 10:10:09 jzdYmD1f13BQAdM8LKwi T/eBz4a7B+XzlG0O7 hxIXjPJHNfgslCEmZKj07fF8usw0258-65-86 T10:10:09 Chief ComplaintPatient presents withBlood PressureBlood pressure has been elevated the past couple of days. Hot flashes at night and not sleeping well since the surgerySCOTT QuinonezN 20505-6Ajudp MjlbTJ2013-51-35O06:10:33Nurse NoteTXT1.2.840.383614.1.13.131.2.7.2. 332731|[id number] for patient qqok42462-3Jqovd NoteLNNARRATIVEFormatted C-CDA narrative text[id number] 4200-16-18K84:10:331.2.840.433497.1.7 2.3.15|1.2.840.639926.1.13.131.2.7.2. [id number] [facility] 2023-05-31 16:16:58 /vfp37MRnSeOLauiqSWN boohXdk3hsj5XZ7Wn brKJznGmDa2GvK1F3S4uka9lU/i5792-14-34 T16:16:58 Chief ComplaintPatient presents withPre-Op ExamSurgical clearance for left shoulder surgery on June 22, [address] [address]-8Csplz NptoIT3101-56-74Z11:17:23Nurse NoteTXT1.2.840.405146.1.13.131.2.7.2. 302306|[id number] for patient ffsd09125-7Gwhfd NoteLNNARRATIVEFormatted C-CDA narrative textKELOU MEDICAL CENTER – EDMONDCHELSEAChildren's Hospital of [facility] [facility].[id number] 8089-77-95X20:17:231.2.840.223315.1.7 2.3.15|1.2.840.810423.1.13.131.2.7.2. [id number] [facility]
[2023-07-24] MEDS ORDERED: ONDANSETRON 4 MG (ODT) TAB ONE (18:40)
--- NOTE | 2023-07-24 20:02 | RAD REPORT ---
EXAM DESCRIPTION: CT - Head Brain Wo Cont - 07/24/2023 7:56 pm CLINICAL HISTORY: HEADACHE COMPARISON: No comparisons TECHNIQUE: All CT scans are performed using dose optimization technique as appropriate and may inclu de automated exposure control or mA/KV adjustment according to patient size. FINDINGS: No intracranial hemorrhage, hydrocephalus or extra-axial fluid collection.No areas of brai n edema or evidence of midline shift. The paranasal sinuses and mastoids are clear. The calvarium is intact. IMPRESSION: No acute intracranial abnormality.
--- NOTE | 2023-07-24 20:07 | RAD REPORT ---
EXAM DESCRIPTION: RAD - Chest Single View - 07/24/2023 8:00 pm CLINICAL HISTORY: CHEST PAIN Chest pain. COMPARISON: Chest Single View dated 07/21/2023; Chest Pa And Lat (2 Views) dated 06/18/2023; Chest Sin gle View dated 04/03/2017; CHEST SINGLE VIEW dated 08/19/2013 FINDINGS: Portable technique limits examination quality. The lungs are grossly clear. The heart is normal in size. No displaced fractures. IMPRESSION: No acute intrathoracic process suspected.
[2023-07-24 20:29] LABS: Absolute Eosinophils 0.2 K/uL (0-0.5); Absolute Lymphocytes (CBC) 2.4 K/uL (0.7-4.9); Absolute Monocytes 0.4 K/uL (0.1-1.3); Absolute Neutrophil 2.8 K/uL (1.8-8.0); Basophils % 0.5 % (0-1.3); Eosinophils % 2.9 % (0-4.4); Hematocrit 39.6 % (36.0-45.0); Hemoglobin 13.5 g/dL (12.0-15.0); Lymphocytes % 41.3 % (15.3-44.8); MCHC 34.1 g/dL (32.0-36.0); MCV 84.9 fL (80-100); MPV 8.7 fL (7.6-11.3); Monocytes % 6.8 % (3.3-12.3); Neutrophils % 48.5 % (41.7-73.7); Nucleated Red Blood Cells % 0.1 % (0-0); Platelets 263 thou/uL (152-406); RBC Red Blood Cell Count 4.67 M/uL (3.86-4.86); Red Cell Distribution Width 13.7 % (12.1-15.2)
[2023-07-24 20:42] LABS: Anion Gap 8.7 mEq/L (5.0-15.0); BUN Blood Urea Nitrogen 13 mg/dL (7-18); Bicarbonate 28 mEq/L (21-32); Glomerular Filtration Rate 94 ml/min (=/>90); Glucose Level 106 mg/dL (74-106); Potassium 3.7 mEq/L (3.5-5.1); Sodium Level 138 mEq/L (136-145)
[2023-07-24 20:55] LABS: Troponin High Sensitivity < 3.0 pg/mL (<58.9)
[2023-07-24] MEDS ORDERED: LORazepam 2 MG/ML VIAL ONE (21:52)
--- NOTE | 2023-07-24 22:32 | RAD REPORT ---
EXAM DESCRIPTION: CT - Chest For Pe Angio - 07/24/2023 10:23 pm CLINICAL HISTORY: Chest pain. CHEST PAIN COMPARISON: Chest For Pe Angio dated 07/22/2023 TECHNIQUE: CT angiogram of the pulmonary arteries was performed with MIP. All CT scans are performed using dose optimization technique as appropriate and may include automated exposure control or mA/KV adjustment according to patient size. FINDINGS: Bilateral pulmonary emboli are present in the segmental branches bilaterally. These appear nonocclusive and unchanged since 07/22/2023. . No evidence of RV strain pattern. No acute aortic finding demonstrated. Mild interstitial pulmonary edema. No significant pericardial or pleural fluid. No concerning bony finding. IMPRESSION: Nonocclusive segmental branch pulmonary thromboembolism bilaterally. No new PE seen sinc e 07/22/2023 comparative study. Mild interstitial pulmonary edema.
--- NOTE | 2023-07-24 22:39 | EDPHYS ---
Physician Documentation [facility] Name: Mady Her Age: 62 yrs Sex: Female : 1960 Arrival Date: 07/24/2023 Time: 17:40 Bed 15 Private MD: ED Physician Urban Hinton HPI: 07/23 20:01 This 62 yrs old Female presents to ER via Ambulatory with complaints of sb4 Shortness Of Breath, Anxiety, Nausea, Pressure in Head. 20:01 patient presents with several complaints. was recently admitted here for PE, treated sb4 with lovenox then transitioned to eliquis. discharged yesterday. still complaining of intermittent chest pain, shortness of breath, diaphoresis, nausea. newly complaining of pressure in the back of her head. reports compliance with prescribed medications. Historical: - Allergies: 18:02 No Known Allergies; nj1 - PMHx: 18:02 Hypertensive disorder; nj1 - PSHx: 18:02 section; Shoulder (an); nj1 - Immunization history:: Client reports receiving the 2nd dose of the Covid vaccine. - Infectious Disease History:: Denies. - Social history:: Smoking status: Patient denies any tobacco usage or history of. ROS: 20:01 Constitutional: Negative for fever, chills, and weight loss, sb4 20:01 Cardiovascular: Positive for chest pain, palpitations, 20:01 Respiratory: Positive for shortness of breath, 20:01 Abdomen/GI: Positive for nausea, 20:01 Neuro: Positive for headache, 20:01 All other systems are negative, Exam: 20:01 Constitutional: This is a well developed, well nourished patient who is awake, alert, sb4 and in no acute distress. Head/Face: Normocephalic, atraumatic. Eyes: Extra-ocular motions intact. Periorbital areas with no swelling, redness, or edema. ENT: Mucous membranes moist. Cardiovascular: Regular rate and rhythm with a normal S1 and S2. Respiratory: Lungs have equal breath sounds bilaterally, clear to auscultation and percussion. No rales, rhonchi or wheezes noted. No increased work of breathing, no retractions or nasal flaring. Abdomen/GI: Soft, non-tender, no distension. Skin: Warm, dry with normal turgor. Normal color with no rashes, no lesions, and no evidence of cellulitis. MS/ Extremity: Pulses equal, no cyanosis. Neurovascular intact. Full, normal range of motion. Neuro: Awake and alert, GCS 15, oriented to person, place, time, and situation. Motor strength 5/5 in all extremities. Sensory grossly intact. Vital Signs: 17:57 BP 149 / 84; Pulse 81; Resp 18; Temp 98.1(TE); Pulse Ox 97% on R/A; Weight 86.18 kg; nj1 Height 5 ft. 3 in. ; 20:35 BP 130 / 72; Pulse 70; Resp 17; Pulse Ox 96% ; jj7 21:30 BP 134 / 69; Pulse 66; Resp 17; Pulse Ox 95% ; jj7 22:30 BP 124 / 67; Pulse 74; Resp 19; Pulse Ox 95% ; jj7 23:00 BP 128 / 69; Pulse 70; Resp 19; Pulse Ox 99% ; Pain 0/10; jj7 17:57 Body Mass Index 33.66 (86.18 kg, 160.02 cm) nj1 23:00 Pain Scale: Adult jj7 MDM: 18:05 Patient medically screened. sb4 22:38 Data reviewed: vital signs, nurses notes, lab test result(s), EKG, radiologic studies, sb4 and as a result, I will discharge patient. Consideration of Admission/Observation Escalation of care including admission/observation considered. Counseling: I had a detailed discussion with the patient and/or guardian regarding the historical points, exam findings, and any diagnostic results supporting the discharge/admit diagnosis, lab results, radiology results, the need for outpatient follow up, for definitive care, to return to the emergency department if symptoms worsen or persist or if there are any questions or concerns that arise at home. 07/23 19:42 Order name: Basic Metabolic Panel; Complete Time: 20:56 sb4 07/23 19:42 Order name: CBC with Diff; Complete Time: 20:31 sb4 07/23 19:42 Order name: Troponin HS; Complete Time: 20:56 sb4 07/23 19:42 Order name: XRAY Chest (1 view); Complete Time: 20:09 sb4 07/23 19:42 Order name: Head Brain Wo Cont CT; Complete Time: 20:04 sb4 07/23 20:57 Order name: Chest For PE Angio CT; Complete Time: 22:35 sb4 07/23 19:42 Order name: EKG; Complete Time: 19:42 sb4 07/23 19:42 Order name: Cardiac monitoring; Complete Time: 20:58 sb4 07/23 19:42 Order name: EKG - Nurse/Tech; Complete Time: 20:58 sb4 07/23 19:42 Order name: IV Saline Lock; Complete Time: 20:16 sb4 07/23 19:42 Order name: Labs collected and sent; Complete Time: 20:16 sb4 07/23 19:42 Order name: O2 Per Protocol; Complete Time: 20:58 sb4 07/23 19:42 Order name: O2 Sat Monitoring; Complete Time: 20:58 sb4 EC:34 Rate is 67 beats/min. Rhythm is regular, Normal Sinus Rhythm. LA interval is normal at sb4 144 msec. QRS interval is normal at 98 msec. QT interval is normal at 430 msec. No Q waves. No ST changes noted. Clinical impression: Normal ECG and No evidence of ischemia. Interpreted by me. Reviewed by me. Administered Medications: 18:47 Drug: Ondansetron Oral Disintegrating Tablet Oral Disintegrating Tablet 4 mg PO once nj1 Route: PO; 23:13 Follow up: Response: Marked relief of symptoms jj7 21:57 Drug: Ativan IVP 0.5 mg IVP once Route: IVP; Site: right antecubital; jj7 23:12 Follow up: Response: Anxiety decreased jj7 Disposition Summary: 07/24/23 22:38 Discharge Ordered Notes: Location: Home sb4 Problem: new sb4 Symptoms: have improved sb4 Condition: Stable sb4 Diagnosis - Palpitations sb4 - Headache sb4 Followup: sb4 - With: Kevin Nice DO - When: 2 - 3 days - Reason: Recheck today's complaints, Re-evaluation by your physician Discharge Instructions: - Discharge Summary Sheet sb4 - Palpitations, Ehhp-hv-Xdkb sb4 Forms: - Thank You Letter sb4 - Patient Portal Instructions sb4 - Leadership Thank You Letter sb4 Prescriptions: - Hydroxyzine HCl 25 mg Oral tablet - take 1 tablet ORAL route every 6 hours As needed PRN anxiety; 30 tablet; sb4 Refills: 0, Product Selection Permitted - Zofran 4 mg Oral Tablet - take 1 tablet ORAL route every 12 hours As needed; 20 tablet; Refills: 0, sb4 Product Selection Permitted Signatures: Dispatcher [employer] José Solis RN RN jj7 Tran Sanchez PAJennyC PA-C sb4 Mady Marrero RN RN nj1
--- NOTE | 2023-07-24 22:39 | ER ---
Nurse's Notes [facility] Name: Mady Her Age: 62 yrs Sex: Female : 1960 Arrival Date: 07/24/2023 Time: 17:40 Bed 15 Private MD: Diagnosis: Palpitations;Headache Presentation: 07/23 17:57 Chief complaint: Patient states: Air hunger sensation and back of the head pressure nj1 which is tender to touch. Was discharged yesterday from here, dx with PE, states she felt somewhat better yesterday but bad again today. Coronavirus screen: Vaccine status: Patient reports receiving the 2nd dose of the covid vaccine. Ebola Screen: Patient denies travel to an Ebola-affected area in the 21 days before illness onset. Initial Sepsis Screen: Does the patient meet any 2 criteria? No. Patient's initial sepsis screen is negative. Does the patient have a suspected source of infection? No. Patient's initial sepsis screen is negative. Risk Assessment: Do you want to hurt yourself or someone else? Patient reports no desire to harm self or others. Onset of symptoms was June 22, 2023. 17:57 Method Of Arrival: Ambulatory [facility] 17:57 Acuity: MAYA 3 nj1 Triage Assessment: 18:04 General: Appears in no apparent distress. comfortable, Behavior is calm, cooperative, nj1 appropriate for age. Pain: Complains of pain in base of the skull Pain currently is 6 out of 10 on a pain scale. 20:35 Respiratory: Reports shortness of breath Onset: The symptoms/episode began/occurred jj7 since she was dx with a pe, the patient has mild shortness of breath. Historical: - Allergies: 18:02 No Known Allergies; nj1 - PMHx: 18:02 Hypertensive disorder; nj1 - PSHx: 18:02 section; Shoulder (an); nj1 - Immunization history:: Client reports receiving the 2nd dose of the Covid vaccine. - Infectious Disease History:: Denies. - Social history:: Smoking status: Patient denies any tobacco usage or history of. Screenin:35 [facility] ED Fall Risk Assessment (Adult) History of falling in the last 3 months, jj7 including since admission No falls in past 3 months (0 pts) Confusion or Disorientation No (0 pts) Intoxicated or Sedated No (0 pts) Impaired Gait No (0 pts) Mobility Assist Device Used No (0 pt) Altered Elimination No (0 pt) Score/Fall Risk Level 0 - 2 = Low Risk Oriented to surroundings, Maintained a safe environment, Educated pt \T\ family on fall prevention, incl call for assistance when getting out of bed. Abuse screen: Denies threats or abuse. Nutritional screening: No deficits noted. Tuberculosis screening: No symptoms or risk factors identified. Assessment: 20:35 General: Appears in no apparent distress. comfortable, Behavior is calm, cooperative, jj7 appropriate for age. Cardiovascular: No deficits noted. Rhythm is sinus rhythm. Respiratory: Airway is patent Respiratory effort is even, unlabored. Vital Signs: 17:57 BP 149 / 84; Pulse 81; Resp 18; Temp 98.1(TE); Pulse Ox 97% on R/A; Weight 86.18 kg; nj1 Height 5 ft. 3 in. ; 20:35 BP 130 / 72; Pulse 70; Resp 17; Pulse Ox 96% ; jj7 21:30 BP 134 / 69; Pulse 66; Resp 17; Pulse Ox 95% ; jj7 22:30 BP 124 / 67; Pulse 74; Resp 19; Pulse Ox 95% ; jj7 23:00 BP 128 / 69; Pulse 70; Resp 19; Pulse Ox 99% ; Pain 0/10; jj7 17:57 Body Mass Index 33.66 (86.18 kg, 160.02 cm) nj1 23:00 Pain Scale: Adult jj7 ED Course: 17:45 Patient arrived in ED. mg5 18:02 Triage completed. nj1 18:03 Arm band placed on right wrist. nj1 18:04 Tran Sanchez PA-C is PHCP. sb4 18:04 Urban Hinton MD is Attending Physician. sb4 19:54 José Oliveira, LISS is Primary Nurse. jj7 19:58 Head Brain Wo Cont CT In Process Unspecified. EDMS 20:02 XRAY Chest (1 view) In Process Unspecified. EDMS 20:16 Basic Metabolic Panel Sent. bc6 20:16 CBC with Diff Sent. bc6 20:16 Troponin HS Sent. bc6 20:16 Initial lab(s) drawn, by me, sent to lab. Inserted saline lock: 20 gauge in right bc6 antecubital area, using aseptic technique. Blood collected. 20:35 Patient has correct armband on for positive identification. Bed in low position. Call jj7 light in reach. Adult w/ patient. Provided Education on: USE OF CALL GUTIÉRREZ. Warm blanket given. 20:35 No provider procedures requiring assistance completed. jj7 22:24 Chest For PE Angio CT In Process Unspecified. EDMS 22:38 Kevin Nice DO is Referral Physician. sb4 23:13 IV discontinued, intact, bleeding controlled, No redness/swelling at site. Pressure jj7 dressing applied. Administered Medications: 18:47 Drug: Ondansetron Oral Disintegrating Tablet Oral Disintegrating Tablet 4 mg PO once nj1 Route: PO; 23:13 Follow up: Response: Marked relief of symptoms jj7 21:57 Drug: Ativan IVP 0.5 mg IVP once Route: IVP; Site: right antecubital; jj7 23:12 Follow up: Response: Anxiety decreased jj7 Medication: 20:35 VIS not applicable for this client. jj7 Outcome: 22:38 Discharge ordered by . sb4 23:13 Discharged to home ambulatory, with family, jj7 23:13 Condition: improved 23:13 Discharge instructions given to patient, family, Instructed on discharge instructions, medication usage, Demonstrated understanding of instructions, medications, Prescriptions given X 2, 23:15 Patient left the ED. jj7 Signatures: Dispatcher [employer] José Solis RN RN jj7 Tran Sanchez, PA-C PA-C sb4 Ayala Lawson 6 Mady Marrero RN RN nj1 Alysa Kwan mg5
[2023-07-24 23:46] VITALS: BP 128/69; TEMP 98.1; O2SAT 99
== END 2023-07-24 23:15 | disposition home or self-care (01) ==
LOC: ER 17:40
DX: R00.2 Palpitations (principal); R51.9 Headache, unspecified; I10 Essential (primary) hypertension
CPT/HCPCS: 93005; 85025; 80048; 36415; 84484; 70450; 71275; 71045; 96374; 99284; Q9967; Q0162

== ENCOUNTER 2024-03-01 15:59 | Observation (INO) | payer OTHER ==
--- OUTSIDE RECORDS SUMMARY | 2024-03-01 16:02 | XMS REPORT | Continuity of Care Document ---
Author Name Unknown Address [address] [facility] [address]. [address] thconnect Address 1200 [facility]. 1 [address] [place] [address] Care Team Providers Care Rubber Calender Helper Name Role Phone Gayle Boudreaux Attending Clinician Unavailable VIOLA COLLAZO Attending Clinician UnavailDARNELL Ruiz Attending Clinician Unavailable MELISSA JEFFERY Attending Clinician Unavailable LAB90 Attending Clinician Unavailable 39, HOLTER Attending Clinician Unavailable WILLIE CARRILLO Attending Clinician Unavailable REMBERTO RAZA Attending Clinician Unavailab ISIDORO Fox Attending Clinician Unavailable TRED47 Attending Clinician Unavailable CAROL ZAMBRANO Attending Clinician Unavailable MD SIRISHA Attending Clinician Unavailab MERCEDEZ Eddy Attending Clinician Unavail able DOLORES BAUER Attending Clinician Unavailab BENIGNO Fair Attending Clinician UnaJOLEEN Peguero Attending Clinician UnavailGAYLE King Attending Clinician Unava ROBERT Umaña Attending Clinician Unavailable Gayle Boudreaux Admitting Clinician Unavailable Payers Payer Name Policy Type Policy Number Effective Date Expirati on Date Source GEOVANNA ARREDONDO S [employer] 94 ON 9 [id number] 2022 00:00:00 [facility] CASIJennySEANADALBERTO SHAW COPAY FOCUS 9 [id number] 2023 00:00:00 Problems Condition Name Condition Details Condition Category Status Onset Date Resolution Date Last Treatment Date Treating Clinician Comments Source 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 12-03 00:00: 00 Casi Graciaa chidi Abnormal ECG Abnormal ECG Disease Active 12-03 00:00: 00 Casi Alvarado Externa l HTN (hypertens ion) HTN (hypertens ion) Disease Active 07-26 00:00: 00 Casi Alvarado Externa chidi Pulmonary embolism (multi HCC) Pulmonary embolism (multi HCC) Disease Active 07-26 00:00: 00 Casi Graciaa chidi Hx of hypercoagu lable state Hx of hypercoagu lable state Disease Active 07-26 00:00: 00 Casi Alvarado Externa chidi Popliteal DVT (deep venous thrombosis ) (multi HCC) Popliteal DVT (deep venous thrombosis ) (multi HCC) Disease Active 07-26 00:00: 00 Casi Alvarado Externa chidi Hospital discharge follow-up Hospital discharge follow-up Disease Active 07-26 00:00: 00 Casi Graciaa chidi History of rotator cuff surgery History of rotator cuff surgery Disease Active 07-26 00:00: 00 Overview: Formattin g of this note might be different from the original. June 22, [address] Herb murillo Class 1 obesity due to excess calories with serious comorbidit y and body mass index (BMI) of 34.0 to 34.9 in adult Class 1 obesity due to excess calories with serious comorbidit y and body mass index (BMI) of 34.0 to 34.9 in adult Disease Active 07-26 00:00: 00 Casi Graciaa chidi Class 2 severe obesity due to excess calories with serious comorbidit y and body mass index (BMI) of 35.0 to 35.9 in adult Class 2 severe obesity due to excess calories with serious comorbidit y and body mass index (BMI) of 35.0 to 35.9 in adult Disease Active 07-26 00:00: 00 Casi Graciaa chidi Social History Social Habit Start Date Stop Date Quantity Comments Source Sexual orientation K elsey Seybold - External Alcoholic beverage intake 2023-12-04 00:00:00 2023-12-04 00:00:00 Current drinker of alcohol (finding) Casi Ulrich - External Tobacco use and exposure 2023-07-27 00:00:00 2023-07-27 00:00:00 Smokeless tobacco non-user Casi Ulrich - External Education 2023-07-27 00:00:00 2023-07-27 00:00:00 6 Casi Ulrihc - External Alcohol Comment 2023-07-27 00:00:00 2023-07-27 00:00:00 rarely Casi Ulrich - External Alcohol intake 2023-07-27 00:00:00 2023-07-27 00:00:00 Current drinker of alcohol (finding) Casi Ulrich - External History of Social function 2023-07-27 00:00:00 2023-07-27 00:00:00 Casi Ulrich - External Sex assigned at 1960 00:00:00 1960 00:00:00 Casi Ulrich - External Smoking Status Start Date Stop Date Source Never smoked tobacco Casi Ulrich - External Medications Ordered Medication Name Filled Medication Name Start Date Stop Date Current Medication? Ordering Clinician Indication Dosage Frequency Signature (SIG) Comments Components Source Lisinopril 10 MG oral Tablet 12-03 09:41: 32 12-03 00:00 :00 No 87 10mg QD Take 1 tablet (10 mg total) by mouth daily. Indication s: High Blood Pressure Disorder Casi Alvarado Externa l Lisinopril 10 MG oral Tablet 12-03 00:00: 00 Yes 87 10mg QD Take 1 tablet (10 mg total) by mouth daily. Indication s: High Blood Pressure Disorder Casi Ulrich - Externa l predniSONE (DELTASONE) 10 MG oral tablet 12-02 00:00: 00 Yes 10mg QD Take 1 tablet (10 mg total) by mouth daily. Casi Ulrich - Externa l Ondansetron HCl (Zofran) 4 MG oral Tablet 11-21 15:28: 35 11-21 00:00 :00 No [id number] 4mg Take 1 tablet (4 mg total) by mouth every 12 hours as needed for nausea. Casi murillo Omeprazole 20 MG oral Delayed Release Capsule 09-02 00:00: 00 11-21 00:00 :00 No [id number] 20mg QD Take 1 capsule (20 mg total) by mouth daily. Casi murillo Doxepin HCl 3 MG oral Tablet 09-02 00:00: 00 11-21 00:00 :00 No [id number] 1{tbl} QD Take 1 tablet by mouth nightly as needed (insomnia) . Casi murillo Omeprazole 20 MG oral Delayed Release Capsule 08-30 00:00: 00 09-02 00:00 :00 No 20mg Take 1 capsule (20 mg total) by mouth daily. Casi murillo Apixaban (Eliquis) 5 MG oral Tablet 08-15 00:00: 00 Yes 5mg Q.5D Take 1 tablet (5 mg total) by mouth 2 times daily. Casi murillo Tramadol HCl (ULTRAM) 50 MG oral Tablet 08-15 00:00: 00 09-02 00:00 :00 No 50mg Q.25D Take 1 tablet (50 mg total) by mouth every 6 hours as needed. Casi murillo Meloxicam 7.5 MG oral Tablet 08-01 00:00: 00 09-02 00:00 :00 No 7.5mg Take 1 tablet (7.5 mg total) by mouth daily. Casi murillo Apixaban (Eliquis) 5 MG oral Tablet 07-26 11:43: 25 08-15 00:00 :00 No 5mg Take 1 tablet (5 mg total) by mouth 2 times daily. Casi murillo Lorazepam (ATIVAN) 0.5 MG oral Tablet tablet 05 00:00: 00 08-08 00:00 :00 No [id number] .5mg QD Take 1 tablet (0.5 mg total) by mouth nightly as needed for anxiety. Casi murillo Ondansetron (ZOFRAN) 4 MG oral TABLET DISPERSIBLE 07-26 00:00: 00 08-08 00:00 :00 No [id number] 4mg QD Take 1 tablet (4 mg total) by mouth daily as needed for nausea. Casi murillo hydrOXYzine HCl 25 MG oral Tablet 07-24 00:00: 00 07-26 00:00 :00 No 25mg Q4H Take 1 tablet (25 mg total) by mouth every 4 hours as needed. Casi murillo Apixaban 2.5 MG oral Tablet 07-22 00:00: 00 07-26 00:00 :00 No 5mg 2 tablets (5 mg total). Casi murillo Lorazepam (ATIVAN) 0.5 MG oral Tablet tablet 07-22 00:00: 00 07-26 00:00 :00 No .5mg 1 tablet (0.5 mg total). Casi murillo Trazodone HCl 50 MG oral Tablet 3-21 00:00: 00 Yes [id number] 50mg Take 1 tablet (50 mg total) by mouth nightly. Casi murillo Lisinopril 10 MG oral Tablet 3-14 00:00: 00 11-21 00:00 :00 No [id number] 10mg QD TAKE 1 TABLET BY MOUTH EVERY DAY Casi murillo Methocarbam ol 500 MG oral Tablet -04 00:00: 00 Yes TAKE 1 TABLET ORALLY THREE TIMES A DAY NEEDED Casi murillo Ondansetron HCl (Zofran) 4 MG oral Tablet - 00:00: 00 Yes [id number] 4mg Q.25D Take 1 tablet (4 mg total) by mouth every 12 hours as needed for nausea. Casi murillo HYDROcodone -Acetaminop hen 7.5-325 MG oral Tablet 2-26 00:00: 00 Yes TAKE 1 TABLET BY MOUTH EVERY 6 HOURS NEEDED FOR 7 DAYS Casi murillo Meloxicam 7.5 MG oral Tablet 05-31 00:00: 00 Yes [id number] 7.5mg Take 1 tablet (7.5 mg total) by mouth daily. Casi murillo Ketorolac Tromethamin e (TORADOL) 30 mg/mL 2022-04 22:45: 00 03-30 22:56 :00 No [id number] 30mg Casi murillo methylPREDN ISolone 4 MG oral Tablet Therapy Pack 2022-04 00:00: 00 Yes [id number] 1{huseyin} Take 1 huseyin by mouth See Admin Instructio ns Use as directed. Casi murillo Meloxicam 7.5 MG oral Tablet 2022-04 00:00: 00 Yes [id number] 7.5mg Take 1 tablet (7.5 mg total) by mouth daily. Casi murillo Methylpredn isolone Acetate (Depo-Medro l) 40 mg/ml - Physician Administere d ([id number]) 2022-04 0 14:15: 00 01-25 22:40 :00 No [id number] 9104 40mg Casi murillo methylPREDN ISolone 4 MG oral Tablet Therapy Pack 01-17 00:00: 00 05-31 00:00 :00 No [id number] 1{huseyin} Take 1 huseyin by mouth See Admin Instructio ns Use as directed. Casi murillo Diclofenac Sodium 75 MG oral Tablet Delayed Response 01-17 00:00: 00 05-31 00:00 :00 No [id number] 75mg Take 1 tablet (75 mg total) by mouth 2 times daily. Casi murillo Gabapentin 100 MG oral Capsule 01-10 00:00: 00 05-31 00:00 :00 No 100mg Take 1 capsule (100 mg total) by mouth 3 times daily. Casi murillo Immunizations Ordered Immunization Name Filled Immunization Name Date Status Comments Source Tdap- (Boostrix, Adacel) Unknown Completed Casi Seybold - External Tdap- (Boostrix, Adacel) Unknown Completed Casi Seybold - External Tdap- (Boostrix, Adacel) Unknown Completed Casi Seybold - External Tdap- (Boostrix, Adacel) Unknown Completed Casi Seybold - External Vital Signs Vital Name Observation Time Observation Value Comments S ource Systolic blood pressure 2023-12-13 19:43:00 126 mm[Hg] Casi Seybo ld - External Diastolic blood pressure 2023-12-13 19:43:00 68 mm[Hg] Casi Seybo ld - External Heart rate 2023-12-13 19:43:00 72 /min Kelse y Seybold - External Body temperature 2023-12-13 19:43:00 36.94 Claudia Casi Seybold - External Respiratory rate 2023-12-13 19:43:00 16 /min Casi Seybold - External Body height 2023-12-13 19:43:00 160 cm Pinky ey Seybold - External Body weight 2023-12-13 19:43:00 86.183 kg Pinky ey Seybold - External BMI 2023-12-13 19:43:00 33.66 kg/m2 Pinky ey Seybold - External Oxygen saturation in Arterial blood by Pulse oximetry 2023-12-13 19:43:00 98 /min Casi Seybo ld - External Systolic blood pressure 2023-12-04 14:32:00 129 mm[Hg] Casi Seybo ld - External Diastolic blood pressure 2023-12-04 14:32:00 83 mm[Hg] Casi Seybo ld - External Heart rate 2023-12-04 14:32:00 107 /min Kelse y Seybold - External Body temperature 2023-12-04 14:32:00 36.39 Claudia Casi Seybold - External Respiratory rate 2023-12-04 14:32:00 16 /min Casi Seybold - External Body height 2023-12-04 14:32:00 160 cm Pinky ey Seybold - External Body weight 2023-12-04 14:32:00 87.998 kg Pinky ey Seybold - External BMI 2023-12-04 14:32:00 34.37 kg/m2 Pinky ey Seybold - External Oxygen saturation in Arterial blood by Pulse oximetry 2023-12-04 14:32:00 95 /min Casi Seybo ld - External Systolic blood pressure 2023-11-22 20:02:00 137 mm[Hg] Casi Seybo ld - External Diastolic blood pressure 2023-11-22 20:02:00 71 mm[Hg] Casi Seybo ld - External Heart rate 2023-11-22 20:02:00 82 /min Kelse y Seybold - External Body temperature 2023-11-22 20:02:00 36.67 Claudia Casi Seybold - External Respiratory rate 2023-11-22 20:02:00 16 /min Casi Seybold - External Body height 2023-11-22 20:02:00 160 cm Pinky ey Seybold - External Body weight 2023-11-22 20:02:00 87.998 kg Pinky ey Seybold - External BMI 2023-11-22 20:02:00 34.37 kg/m2 Pinky ey Seybold - External Oxygen saturation in Arterial blood by Pulse oximetry 2023-11-22 20:02:00 96 /min Casi Seybo ld - External Systolic blood pressure 2023-09-03 14:35:00 135 mm[Hg] Casi Seybo ld - External Diastolic blood pressure 2023-09-03 14:35:00 78 mm[Hg] Casi Seybo ld - External Heart rate 2023-09-03 14:35:00 78 /min Monicose y Seybold - External Body temperature 2023-09-03 14:35:00 36.11 Claudia Casi Seybold - External Respiratory rate 2023-09-03 14:35:00 16 /min Casi Seybold - External Body height 2023-09-03 14:35:00 160 cm Pinky ey Seybold - External Body weight 2023-09-03 14:35:00 90.266 kg Pinky ey Seybold - External BMI 2023-09-03 14:35:00 35.25 kg/m2 Pinky ey Seybold - External Oxygen saturation in Arterial blood by Pulse oximetry 2023-09-03 14:35:00 100 /min Casi Seybo ld - External Systolic blood pressure 2023-08-16 15:53:00 137 mm[Hg] Casi Seybo ld - External Diastolic blood pressure 2023-08-16 15:53:00 70 mm[Hg] Casi Seybo ld - External Heart rate 2023-08-16 15:53:00 73 /min Kelse y Seybold - External Body temperature 2023-08-16 15:53:00 36.61 Claudia Casi Seybold - External Body weight 2023-08-16 15:53:00 86.274 kg Pinky ey Seybold - External BMI 2023-08-16 15:53:00 33.69 kg/m2 Pinky ey Seybold - External Systolic blood pressure 2023-08-09 15:39:00 138 mm[Hg] Casi Seybo ld - External Diastolic blood pressure 2023-08-09 15:39:00 72 mm[Hg] Casi Seybo ld - External Heart rate 2023-08-09 15:39:00 66 /min Kelse y Seybold - External Body temperature 2023-08-09 15:39:00 36.33 Claudia Casi Seybold - External Respiratory rate 2023-08-09 15:39:00 16 /min Casi Seybold - External Body height 2023-08-09 15:39:00 160 cm Pinky ey Seybold - External Body weight 2023-08-09 15:39:00 87.091 kg Pinky ey Seybold - External BMI 2023-08-09 15:39:00 34.01 kg/m2 Pinky ey Seybold - External Oxygen saturation in Arterial blood by Pulse oximetry 2023-08-09 15:39:00 98 /min Casi Seybo ld - External Systolic blood pressure 2023-07-27 16:17:00 130 mm[Hg] Casi Seybo ld - External Diastolic blood pressure 2023-07-27 16:17:00 70 mm[Hg] Casi Seybo ld - External Heart rate 2023-07-27 16:17:00 85 /min Kelse y Seybold - External Body temperature 2023-07-27 16:17:00 36 Claudia Casi Seybold - External Respiratory rate 2023-07-27 16:17:00 15 /min Casi Seybold - External Body height 2023-07-27 16:17:00 160 cm Pinky ey Seybold - External Body weight 2023-07-27 16:17:00 87.998 kg Pinky ey Seybold - External BMI 2023-07-27 16:17:00 34.37 kg/m2 Pinky ey Seybold - External Systolic blood pressure 2023-07-12 15:02:00 138 mm[Hg] Casi Seybo ld - External Diastolic blood pressure 2023-07-12 15:02:00 72 mm[Hg] Casi Seybo ld - External Heart rate 2023-07-12 15:02:00 [...] blood pressure 2023-03-30 22:22:00 68 mm[Hg] Casi Downso ld - External Heart rate 2023-03-30 22:22:00 [...] Pulse oximetry 2023-03-30 22:22:00 96 /min Casi Downso ld - External Body weight 2023-01-25 13:56:00 88.633 kg Pinky ey Seybold - External BMI 2023-01-25 13:56:00 34.61 kg/m2 Pinky ey Seybold - External Systolic blood pressure 2023-01-17 14:04:00 156 mm[Hg] Casi Downso ld - External Diastolic blood pressure 2023-01-17 14:04:00 82 mm[Hg] Casi Downso ld - External Heart rate 2023-01-17 14:04:00 [...] End Date/Time Encounter Type Admission Type Attending [facility] Care Department Encounter ID Source 2024-02-19 13:44:00 Outpatient Gayle Boudreaux [facility] [id number] [facility] 2023-06-18 08:17:01 Outpatient Gayle Boudreaux [facility] [id number] [facility] 2024-03-14 11:30:00 2024-03-14 11:30:00 Outpatient ELIAZAR COLLAZOE CASI BECERRA [id number] [facility] 2024-02-28 00:00:00 2024-02-28 00:00:00 Outpatient VIOLA COLLAZO [id number] [facility] 2024-01-14 00:00:00 2024-01-14 00:00:00 Outpatient DARNELL DUNAWAY [id number] [facility] 2024-01-08 16:15:00 2024-01-08 16:15:00 Outpatient MELISSA JEFFERY [id number] [facility] 2023-12-28 10:10:00 2023-12-28 10:10:00 Outpatient LAB90 CASI BECERRA [id number] [facility] 2023-12-21 09:20:00 2023-12-21 09:20:00 Outpatient 39, NELLYTER CASI BECERRA [id number] [facility] 2023-12-21 09:15:00 2023-12-21 09:15:00 Outpatient WILLIE CARRILLO [id number] [facility] 2023-12-20 00:00:00 2023-12-20 00:00:00 Outpatient CASI BECERRA [id number] [facility] 2023-12-14 09:05:00 2023-12-14 09:05:00 Outpatient LAB90 CASI BECERRA [id number] [facility] 2023-12-13 15:00:00 2023-12-13 15:00:00 Outpatient REMBERTO RAZA [id number] [facility] 2023-12-06 00:00:00 2023-12-06 00:00:00 Outpatient CASI CASI [id number] [facility] 2023-12-04 09:30:00 2023-12-04 09:30:00 Outpatient DARNELL DUNAWAY [facility] [id number] [facility] 2023-11-30 00:00:00 2023-11-30 00:00:00 Outpatient CASI BECERRA [id number] [facility] 2023-11-27 00:00:00 2023-11-27 00:00:00 Outpatient ISIDORO SMALLS [facility]ECERRA [id number] [facility] 2023-11-26 09:35:00 2023-11-26 09:35:00 Outpatient KEANU [facility] BECERRA [id number] [facility] 2023-11-22 16:15:00 2023-11-22 16:15:00 Outpatient TRED47 CAS[facility] BECERRA [id number] [facility] 2023-11-22 15:00:00 2023-11-22 15:00:00 Outpatient ISIDORO SMALLS [facility]I BECERRA [id number] [facility] 2023-10-08 00:00:00 2023-10-08 00:00:00 Outpatient CASI BECERRA [id number] [facility] 2023-09-24 13:30:00 2023-09-24 13:30:00 Outpatient PREZASDARNELL CAS[facility]ECERRA [id number] [facility] 2023-09-11 00:00:00 2023-09-11 00:00:00 Outpatient JUAN MANUELCAROL [facility]EC[facility]RA [id number] [facility] 2023-09-05 00:00:00 2023-09-05 00:00:00 Outpatient PREZAJose Luis DARNELL CASI BECERRA [id number] [facility] 2023-09-03 09:45:00 2023-09-03 09:45:00 Outpatient PREZAS, DARNELL CASI BECERRA [id number] [facility] 2023-08-29 00:00:00 2023-08-29 00:00:00 Outpatient PREZAS DARNELL BECERRA [id number] [facility] 2023-08-22 00:00:00 2023-08-22 00:00:00 Outpatient MD CASI ERIC [id number] [facility] 2023-08-16 10:30:00 2023-08-16 10:30:00 Outpatient REMBERTO RAZA CASI BECERRA [id number] [facility] 2023-08-16 00:00:00 2023-08-16 00:00:00 Outpatient CASI BEECRRA [id number] [facility] 2023-08-13 10:00:00 2023-08-13 10:00:00 Outpatient CAROL ZAMBRANO [id number] [facility] 2023-08-09 10:30:00 2023-08-09 10:30:00 Outpatient JBCAROLMERCEDEZNAOMY BECERRA [id number] [facility] 2023-08-07 00:00:00 2023-08-07 00:00:00 Outpatient DARNELL DUNAWAY [id number] [facility] 2023-08-02 00:00:00 2023-08-02 00:00:00 Outpatient DARNELL DUNAWAY [id number] [facility] 2023-07-31 14:00:00 2023-07-31 14:00:00 Outpatient CAROL ZAMBRANO [id number] [facility] 2023-07-30 11:30:00 2023-07-30 11:30:00 Outpatient LIZETTEDOLORES [id number] [facility] 2023-07-27 16:30:00 2023-07-27 16:30:00 Outpatient RYDERZADARNELL Amaya [id number] [facility] 2023-07-27 11:30:00 2023-07-27 11:30:00 Outpatient PREZADARNELL Amaya [id number] [facility] 2023-07-27 00:00:00 2023-07-27 00:00:00 Outpatient MD CASI ERIC [id number] [facility] 2023-07-27 00:00:00 2023-07-27 00:00:00 Outpatient DARNELL DUNAWAY [facility]RA [id number] [facility] 2023-07-24 00:00:00 2023-07-24 00:00:00 Outpatient JENNIFERChidi CAROL CASI BECERRA [id number] [facility] 2023-07-24 00:00:00 2023-07-24 00:00:00 Outpatient SHREE BENIGNOPAU BECERRA [id number] [facility] 2023-07-23 00:00:00 2023-07-23 00:00:00 Outpatient DARNELL DUNAWAY [facility]I BECERRA [id number] [facility] 2023-07-12 10:00:00 2023-07-12 10:00:00 Outpatient JENNIFERChidi CAROL BECERRA [id number] [facility] 2023-07-12 00:00:00 2023-07-12 00:00:00 Outpatient CASI BECERRA [id number] [facility] 2023-07-11 00:00:00 2023-07-11 00:00:00 Outpatient JENNIFERCAROL Murillo CASI BECERRA [id number] [facility] 2023-07-01 00:00:00 2023-07-01 00:00:00 Outpatient JENNIFERChidi CAROL BECERRA [id number] [facility] 2023-06-18 00:00:00 2023-06-18 00:00:00 Outpatient MD CASI ERIC [id number] [facility] 2023-06-18 00:00:00 2023-06-18 00:00:00 Outpatient CASI BECERRA [id number] [facility] 2023-06-11 16:00:00 2023-06-11 16:00:00 Outpatient JOLEEN NORIEGA [id number] [facility] 2023-06-08 16:00:00 2023-06-08 16:00:00 Outpatient JOLEEN NORIEGA [id number] [facility] 2023-06-08 11:30:00 2023-06-08 11:30:00 Outpatient JOLEEN NORIEGA CASI BECERRA [id number] [facility] 2023-06-08 00:00:00 2023-06-08 00:00:00 Outpatient CAROL ZAMBRANO CASI BECERRA [id number] [facility] 2023-06-07 16:15:00 2023-06-07 16:15:00 Outpatient JOLEEN NORIEGA CASI BECERRA [id number] [facility] 2023-05-31 16:55:00 2023-05-31 16:55:00 Outpatient LABMendoza CASI BECERRA [id number] [facility] 2023-05-31 16:00:00 2023-05-31 16:00:00 Outpatient CAROL ZAMBRANO CASI BECERRA [id number] [facility] 2023-05-30 11:00:00 2023-05-30 11:00:00 Outpatient CAROL ZAMBRANO CASI BECERRA [id number] [facility] 2023-05-17 00:00:00 2023-05-17 00:00:00 Outpatient CASI BECERRA [id number] [facility] 2023-05-15 00:00:00 2023-05-15 00:00:00 Outpatient GAYLE BOUDREAUX [id number] [facility] 2023-05-10 00:00:00 2023-05-10 00:00:00 Outpatient CASI BECERRA [id number] [facility] 2023-04-30 00:00:00 2023-04-30 00:00:00 Outpatient CASI BECERRA [id number] [facility] 2023-03-30 17:00:00 2023-03-30 17:00:00 Outpatient LAB90 CASI BECERRA [id number] [facility] 2023-03-30 16:30:00 2023-03-30 16:30:00 Outpatient GAYLE BOUDREAUX [id number] [facility] 2023-03-30 00:00:00 2023-03-30 00:00:00 Outpatient CASI BECERRA [id number] [facility] 2023-02-27 00:00:00 2023-02-27 00:00:00 Outpatient MD CASI ERIC [id number] [facility] 2023-02-14 09:30:00 2023-02-14 09:30:00 Outpatient JUAN MANUEL CAROL BECERRA [id number] [facility] 2023-02-13 00:00:00 2023-02-13 00:00:00 Outpatient JUAN MANUEL CAROL BECERRA [id number] [facility] 2023-01-25 08:40:00 2023-01-25 08:40:00 Outpatient ROBERT GARCÍA [id number] [facility] 2023-01-25 08:30:00 2023-01-25 08:30:00 Outpatient CASI BECERRA [id number] [facility] 2023-01-22 00:00:00 2023-01-22 00:00:00 Outpatient ROBERT GARCÍA [id number] [facility] 2023-01-18 00:00:00 2023-01-18 00:00:00 Outpatient JUAN MANUEL CAROL CASI BECERRA [id number] [facility] 2023-01-18 00:00:00 2023-01-18 00:00:00 Outpatient MONIQUEDARNELL Amaya CASI BECERRA [id number] [facility] 2023-01-17 09:00:00 2023-01-17 09:00:00 Outpatient JUAN MANUEL CAROL BECERRA [id number] [facility] 2022-08-07 17:30:13 2022-08-07 17:30:13 Outpatient SFA SFA 0417 Robert Esquivel History and Physical Notes Date/Time Note Provider Source 2023-05-31 16:26:00 Edel Bobo is a 62 year old female presents at the request of Dr. Estevez for pre-op clearance for existing shoulder issues. Edel is scheduled for surgery due to impingement syndrome . Shoulder Dr. Estevez 06/22/23 There is no problem list on file for this patient. No past medical history on file. Past Surgical History: Procedure Laterality Date DELIVERY ONLY Social History Tobacco Use Smoking status: Never Substance Use Topics Alcohol use: Never Drug use: Never Family History Problem Relation Name Age of Onset Diabetes Mellitus Mother Psoriasis Father Current Medications Current Outpatient Medications Medication Sig Dispense Refill Meloxicam 7.5 MG oral Tablet Take 1 tablet (7.5 mg total) by mouth daily. 30 tablet 2 No current facility-administered medications for this visit. Allergies No Known Allergies Review of Systems Constitutional: negative HENT: negative Eyes: negative Respiratory: negative Cardiovascular: negative Gastrointestinal: negative Hematologic/lymphatic: negative Musculoskeletal:negative Skin: negative Psychiatric/Behavioral: negative Physical Exam BP 158/78 (Side: Right Arm, Position: SITTING, Cuff Size: Medium Adult) | Pulse 81 | Temp 96.6 ?F (35.9 ?C) (Tympanic) | Resp 15 | Ht 5' 3" (1.6 m) | Wt 200 lb (90.7 kg) | BMI 35.43 kg/m? General appearance: alert, cooperative Eyes: negative Neck: supple, symmetrical, trachea midline and no adenopathy Cardiovascular: regular rate and rhythm, S1, S2 normal, no murmur, click, rub or gallop, regular rate and rhythm, S1, S2 normal Pulmonary/Chest: clear to auscultation bilaterally Abdominal: soft, non-tender. Bowel sounds normal. No masses, no organomegaly Musculoskeletal: no edema, redness or tenderness in the calves or thighs Skin: Skin is warm and dry. She is not diaphoretic. No pallor. Neurologic: Grossly normal Nursing Notes and vitals reviewed. I have reviewed the patient's labs, imaging, and other data that is available. Assessment and Plan dEel was seen today for pre-op exam. Diagnoses and all orders for this visit: Blood glucose elevated - HEMOGLOBIN (HB) A1C; Future Preop examination Impingement of both shoulders - Not Controlled - Meloxicam 7.5 MG oral Tablet; Take 1 tablet (7.5 mg total) by mouth daily. Tendonitis - Not Controlled - Meloxicam 7.5 MG oral Tablet; Take 1 tablet (7.5 mg total) by mouth daily. Patient's glucose level was elevated March 2023. There are no recent labs on her. Blood pressure is also elevated today in office currently not taking any blood pressure medication. Will need to determine if patient is diabetic prior to surgery. Will also need to get her blood pressure under control before being able to be cleared. CAROL ZAMBRANO [facility] Notes Date/Time Note Provider Source 2023-12-13 14:42:27 Chief Complaint Patient presents with Hematology Follow-up 3mo fu Deep vein thrombosis (DVT) of left lower extremity, unspecified chronicity, unspecified vein [facility] 2023-11-22 15:09:30 Chief Complaint Patient presents with Dizziness Patient states for 1 week feeling dizzy and light heads near frontal lobe for only a couple of days. Vitals: 11/22/23 1502 BP: 137/71 Side: Right Arm Position: SITTING Cuff Size: Medium Adult Pulse: 82 Resp: 16 Temp: 98 ?F (36.7 ?C) TempSrc: Tympanic SpO2: 96% Weight: 194 lb (88 kg) Height: 5' 3" (1.6 m) No other voiced complaints at this time [facility] 2023-08-16 10:45:35 Chief Complaint Patient presents with Hematology Follow-up Other acute pulmonary embolism without acute cor pulmonale (multi HCC) Hx of hypercoagulable state Acute deep vein thrombosis (DVT) of popliteal vein of right lower extremity (multi HCC) Hospital discharge follow-up History of rotator cuff surgery Tiffany Maier CMA II [facility] 2023-08-09 11:35:36 Informed patient to follow up as needed EETA CHAVEZN [facility] 2023-08-09 10:40:15 Chief Complaint Patient presents with Consultation PE Laxmi Cronin CMA II [facility] 2023-07-27 11:24:00 Chief Complaint Patient presents with Hospital F/U Follow up from [facility] on 07/21/23 for anxiety and shortness of breath. Referral Referral to Pulmonary for blood clot in lung Awilda Erickson MA II Awilda Erickson MA, II [facility] 2023-07-12 10:10:09 Chief Complaint Patient presents with Blood Pressure Blood pressure has been elevated the past couple of days. Hot flashes at night and not sleeping well since the surgery Oumou Hess LVN [facility] 2023-05-31 16:16:58 Chief Complaint Patient presents with Pre-Op Exam Surgical clearance for left shoulder surgery on June 22, [address] Estevez. Awilda Erickson MA II [facility]
[2024-03-01 16:42] LABS: Absolute Lymphocytes (CBC) 1.5 K/uL (0.7-4.9); Absolute Monocytes 0.4 K/uL (0.1-1.3); Absolute Neutrophil 8.6 K/uL (1.8-8.0); Basophils % 0.3 % (0-1.3); Eosinophils % 0.1 % (0-4.4); Hematocrit 36.8 % (36.0-45.0); Lymphocytes % 14.2 % (15.3-44.8); MCH 27.7 pg (27.0-35.0); MCHC 32.7 g/dL (32.0-36.0); MCV 84.9 fL (80-100); MPV 9.3 fL (7.6-11.3); Monocytes % 3.8 % (3.3-12.3); Neutrophils % 81.6 % (41.7-73.7); Platelets 264 thou/uL (152-406); RBC Red Blood Cell Count 4.33 M/uL (3.86-4.86); Red Cell Distribution Width 14.7 % (12.1-15.2)
[2024-03-01] MEDS ORDERED: NITROGLYCERIN 0.4 MG/TAB SL ONE (16:42)
[2024-03-01 16:55] LABS: ALT/SGPT 21 U/L (13-56); AST/SGOT 11 U/L (15-37); Albumin 3.8 g/dL (3.4-5.0); Alkaline Phosphatase 75 U/L (45-117); Anion Gap 9.1 mEq/L (5.0-15.0); BUN Blood Urea Nitrogen 32 mg/dL (7-18); Bicarbonate 24 mEq/L (21-32); Bilirubin Total 0.3 mg/dL (0.2-1.0); Globulin 3.8 g/dL (2.3-3.5); Glomerular Filtration Rate 88 ml/min (=/>90); Glucose Level 134 mg/dL (74-106); Magnesium 2.3 mg/dL (1.6-2.4); Potassium 4.1 mEq/L (3.5-5.1); Protein, Total 7.6 g/dL (6.4-8.2); Sodium Level 139 mEq/L (136-145); Troponin High Sensitivity 6.9 pg/mL (<58.9)
[2024-03-01 17:02] LABS: Bilirubin Direct < 0.2 mg/dL (0-0.2); Bilirubin Indirect, Calculated 0.1 mg/dL (0.2-0.8)
[2024-03-01] MEDS ORDERED: ONDANSETRON 4 MG/2 ML VIAL ONE (17:33)
[2024-03-01] MEDS ORDERED: MORPHINE 4 MG/ML SYR ONE (17:33)
--- NOTE | 2024-03-01 17:50 | RAD REPORT ---
EXAM: CTA of the chest, abdomen and pelvis HISTORY: Chest and abdominal pain COMPARISON: 2020 CT abdomen July 2023 CT chest TECHNIQUE: Multiple contiguous axial images were obtained a CTA of the chest and abdomen with contras t per aortic dissection protocol. Sagittal and coronal 3-D MIP reformats were performed. 100 cc Isovue-370 administered intravenously.Automated exposure control, adjustment of the mA and kV accordi ng to the patient size, and iterative reconstruction. Unless otherwise specified, incidental findings do not require dedicated imaging follow-up. FINDINGS: An aortic dissection not seen. No aortic aneurysm Celiac, SMA and ANJU dO not demonstrate a significant abnormality. Renal arteries do not demonstrate a significant abnormality. Lungs are clear Mild fatty liver. spleen, pancreas, adrenals, kidneys and bladder do not demonstrate a significant abnormality No evidence of diverticulitis. Normal appendix. No adnexal mass. Small umbilical hernia IMPRESSION: No evidence of an aortic dissection
--- NOTE | 2024-03-01 18:43 | EDPHYS ---
Physician Documentation [facility] Name: Mday Her Age: 63 yrs Sex: Female : 1960 Arrival Date: 03/01/2024 Time: 15:59 Bed 6 Private MD: ED Physician Urban Hinton HPI: 03/01 17:08 This 63 yrs old Female presents to ER via Ambulatory with complaints of Chest rt Pain. 17:08 Patient presents to the ED with an upper back pain starting about 1 week ago. Patient rt received some injections, did not improve. States that she had chest pain since yesterday, intermittent. Denies other acute complaints at this time, symptoms are moderate in severity, no other aggravating or alleviating factors.. Historical: - Allergies: 16:15 No Known Allergies; tl4 - PMHx: 16:15 Hypertensive disorder; tl4 - PSHx: 16:15 section; Shoulder; tl4 - Immunization history:: Adult Immunizations unknown. - Infectious Disease History:: Denies. - Social history:: Smoking status: Patient denies any tobacco usage or history of. ROS: 17:17 Constitutional: Negative for fever, chills, and weight loss, Respiratory: Negative for rt shortness of breath, cough, wheezing, and pleuritic chest pain, Abdomen/GI: Negative for abdominal pain, nausea, vomiting, diarrhea, and constipation, MS/Extremity: Negative for injury and deformity, Skin: Negative for injury, rash, and discoloration, Neuro: Negative for headache, weakness, numbness, tingling, and seizure, 17:17 Cardiovascular: Positive for chest pain, Negative for edema, 17:17 Back: Positive for pain at rest, pain with movement, Exam: 17:17 Constitutional: This is a well developed, well nourished patient who is awake, alert, rt and in no acute distress. Head/Face: Normocephalic, atraumatic. Chest/axilla: Normal chest wall appearance and motion. Nontender with no deformity. No lesions are appreciated. Cardiovascular: Regular rate and rhythm with a normal S1 and S2. No gallops, murmurs, or rubs. Normal PMI, no JVD. No pulse deficits. Respiratory: Lungs have equal breath sounds bilaterally, clear to auscultation and percussion. No rales, rhonchi or wheezes noted. No increased work of breathing, no retractions or nasal flaring. Abdomen/GI: Soft, non-tender, with normal bowel sounds. No distension or tympany. No guarding or rebound. No evidence of tenderness throughout. Back: No spinal tenderness. No costovertebral tenderness. Full range of motion. Skin: Warm, dry with normal turgor. Normal color with no rashes, no lesions, and no evidence of cellulitis. MS/ Extremity: Pulses equal, no cyanosis. Neurovascular intact. Full, normal range of motion. Neuro: Awake and alert, GCS 15, oriented to person, place, time, and situation. Cranial nerves II-XII grossly intact. Motor strength 5/5 in all extremities. Sensory grossly intact. Cerebellar exam normal. Normal gait. 17:17 ECG was reviewed by the Attending Physician. Vital Signs: 16:13 BP 162 / 79; Pulse 83; Resp 18; Temp 98.2; Pulse Ox 99% on R/A; Weight 75.75 kg; tl4 16:45 BP 132 / 75; Pulse 82; Resp 16 S; Pulse Ox 95% ; aa5 17:00 BP 131 / 68; Pulse 82; Resp 14 S; Pulse Ox 97% on R/A; aa5 18:23 BP 124 / 66; Pulse 65; Resp 18; Pulse Ox 99% ; ko1 19:40 BP 128 / 62; Pulse 78; Resp 18; Temp 98.2; Pulse Ox 98% ; Pain 4/10; bm8 19:40 Pain Scale: Adult bm8 [place] Coma Score: 19:40 Eye Response: spontaneous(4). Motor Response: obeys commands(6). Verbal Response: bm8 oriented(5). Total: 15. MDM: 16:08 Medical Screening Exam initiated rt 19:20 Differential diagnosis: ACS, CAD, nonspecific chest pain, mechanical back pain, aortic rt dissection. HEART Score: History: Highly Suspicious (2), ECG: Non specific repolarization disturbance / LBTB / PM (1), Age: > 45 and < 65 years (1), Risk Factors: 1 or 2 risk factors (1), Troponin: < or = 1 x Normal Limit (0), Total Score = 5. 19:21 The patient was given aspirin in the Emergency Department. Data reviewed: vital signs, rt nurses notes, lab test result(s), EKG, radiologic studies. Consideration of Admission/Observation Patient was admitted/placed on observation. Management of patient was discussed with the following: Hospitalist: Agrees to admit. Independent interpretation of the following test(s) in the Emergency Department CT Scan: My interpretation is No aortic dissection seen on my interpretation of CT scan images. Care significantly affected by the following chronic conditions: Hypertension. Counseling: I had a detailed discussion with the patient and/or guardian regarding the historical points, exam findings, and any diagnostic results supporting the discharge/admit diagnosis, lab results, radiology results, the need for further work-up and treatment in the hospital. Response to treatment: the patient's symptoms have markedly improved after treatment. 03/01 16:13 Order name: Basic Metabolic Panel; Complete Time: 17:05 rt 03/01 16:13 Order name: CBC with Diff; Complete Time: 17:05 rt 03/01 16:13 Order name: LFT's; Complete Time: 17:05 rt 03/01 16:13 Order name: Magnesium; Complete Time: 17:05 rt 03/01 16:13 Order name: Troponin HS; Complete Time: 17:05 rt 03/01 19:05 Order name: Urinalysis w/ reflexes EDMS 03/01 19:05 Order name: CBC with Automated Diff EDMS 03/01 19:05 Order name: CBC with Automated Diff EDMS 03/01 19:05 Order name: Comprehensive Metabolic Panel EDUT 03/01 19:05 Order name: Comprehensive Metabolic Panel EDUT 03/01 19:05 Order name: Troponin High Sensitivity EDUT 03/01 19:05 Order name: Troponin High Sensitivity EDUT 03/01 19:05 Order name: Troponin High Sensitivity EDUT 03/01 19:05 Order name: Troponin High Sensitivity EDUT 03/01 16:13 Order name: CT Aorta for Dissection; Complete Time: 17:52 rt 03/01 16:13 Order name: EKG; Complete Time: 16:15 rt 03/01 16:13 Order name: Cardiac monitoring; Complete Time: 16:50 rt 03/01 16:13 Order name: EKG - Nurse/Tech; Complete Time: 16:50 rt 03/01 16:13 Order name: IV Saline Lock; Complete Time: 16:50 rt 03/01 16:13 Order name: Labs collected and sent; Complete Time: 16:50 rt 11/09 16:13 Order name: O2 Per Protocol; Complete Time: 16: rt 03/01 16:13 Order name: O2 Sat Monitoring; Complete Time: 16:17 rt EC:17 Rate is 80 beats/min. Rhythm is regular, Normal Sinus Rhythm with LVH present. QRS [place] rt is Normal. CT interval is normal. QRS interval is normal. QT interval is normal. T waves are Inverted in leads V4, V5. Administered Medications: 16:45 Drug: Nitroglycerin Sublingual 0.4 mg Sublingual once; every five minute if needed x3 aa5 Route: Sublingual; 16:53 Drug: Nitroglycerin Sublingual 0.4 mg Sublingual once; every five minute if needed x3 aa5 Route: Sublingual; 17:00 Drug: Nitroglycerin Sublingual 0.4 mg Sublingual once; every five minute if needed x3 aa5 Route: Sublingual; 17:09 Follow up: Response: No adverse reaction aa5 17:44 Drug: morphine IVP or IV 4 mg IVP once over 4 mins Route: IVP; Infused Over: 4 mins; aa5 Site: right antecubital; 18:06 Follow up: Response: No adverse reaction; Pain is decreased aa5 17:44 Drug: Ondansetron IVP 4 mg IVP once; over 2 minutes Route: IVP; Site: right antecubital;aa5 18:06 Follow up: Response: No adverse reaction aa5 19:44 Drug: Aspirin PO 325 mg PO once Route: PO; bm8 19:44 Follow up: Response: No adverse reaction bm8 Disposition Summary: 03/01/24 18:42 Hospitalization Ordered Notes: Hospitalization Status: Observation rt Provider: Jeremias Caputo rt Location: Telemetry/MedSurg (observation) rt Condition: Stable rt Problem: new rt Symptoms: have improved rt Bed/Room Type: Standard rt Room Assignment: 228(03/01/24 19:12) rv1 Diagnosis - Chest pain, unspecified rt Forms: - Medication Reconciliation Form rt - SBAR form rt - Leadership Thank You Letter rt Signatures: Dispatcher [employer] Jazmine Marroquin RN RN aa5 Urban Hinton MD MD rt Tiffanie White rv1 Andrew Linn RN RN tl4 Isael Betancourt RN RN bm8 Corrections: (The following items were deleted from the chart) 16:15 16:15 BASIC METABOLIC PANEL+C.LAB.BRZ ordered. EDMS EDMS 16:15 16:15 CBC+H.LAB.BRZ ordered. EDMS EDMS 16:15 16:15 HEPATIC FUNCTION+C.LAB.BRZ ordered. EDMS EDMS 16:15 16:15 MAGNESIUM+C.LAB.BRZ ordered. EDMS EDMS 16:15 16:15 Troponin High Sensitivity+C.LAB.BRZ ordered. EDMS EDMS 19:12 18:42 rt rv1
--- NOTE | 2024-03-01 18:43 | ER ---
Nurse's Notes [facility] Name: Mady Her Age: 63 yrs Sex: Female : 1960 Arrival Date: 03/01/2024 Time: 15:59 Bed 6 Private MD: Diagnosis: Chest pain, unspecified Presentation: 03/01 16:13 Chief complaint: Patient's son or daughter states: Daughter reports patient complains tl4 of left side chest pressure. Pt was evaluated at urgent care for back pain yesterday. Coronavirus screen: At this time, the client does not indicate any symptoms associated with coronavirus-19. Ebola Screen: No symptoms or risks identified at this time. Initial Sepsis Screen: Does the patient meet any 2 criteria? No. Patient's initial sepsis screen is negative. Does the patient have a suspected source of infection? No. Patient's initial sepsis screen is negative. Risk Assessment: Do you want to hurt yourself or someone else? Patient reports no desire to harm self or others. Onset of symptoms was February 28, 2024. 16:13 Method Of Arrival: Ambulatory tl4 16:13 Acuity: MAYA 2 tl4 Triage Assessment: 16:15 General: Appears in no apparent distress. General: Behavior is cooperative. Pain: tl4 Complains of pain in back and chest. EENT: No signs and/or symptoms were reported regarding the EENT system. Neuro: Level of Consciousness is awake, alert, obeys commands, Oriented to person, place, time, situation. Cardiovascular: Reports chest pain, Capillary refill < 3 seconds Patient's skin is warm and dry. Respiratory: Airway is patent Respiratory effort is even, unlabored, Respiratory pattern is regular, symmetrical. GI: No signs and/or symptoms were reported involving the gastrointestinal system. : No signs and/or symptoms were reported regarding the genitourinary system. Derm: No signs and/or symptoms reported regarding the dermatologic system. Musculoskeletal: No signs and/or symptoms reported regarding the musculoskeletal system. Historical: - Allergies: 16:15 No Known Allergies; tl4 - PMHx: 16:15 Hypertensive disorder; tl4 - PSHx: 16:15 section; Shoulder; tl4 - Immunization history:: Adult Immunizations unknown. - Infectious Disease History:: Denies. - Social history:: Smoking status: Patient denies any tobacco usage or history of. Screenin:30 [facility] ED Fall Risk Assessment (Adult) History of falling in the last 3 months, aa5 including since admission No falls in past 3 months (0 pts) Confusion or Disorientation No (0 pts) Intoxicated or Sedated No (0 pts) Impaired Gait No (0 pts) Mobility Assist Device Used No (0 pt) Altered Elimination No (0 pt) Score/Fall Risk Level 0 - 2 = Low Risk Oriented to surroundings, Maintained a safe environment, Educated pt \T\ family on fall prevention, incl call for assistance when getting out of bed. Abuse screen: Denies threats or abuse. Nutritional screening: No deficits noted. Tuberculosis screening: No symptoms or risk factors identified. Assessment: 16:30 General: Appears uncomfortable, Behavior is calm, cooperative. Pain: Complains of pain aa5 in left scapular area and left subscapular area Pain radiates to anterior aspect of left upper chest Pain currently is 8 out of 10 on a pain scale. Quality of pain is described as sharp, shooting, Pain began back pain began 1 week ago, chest pain began 1 day ago Is continuous. Neuro: Level of Consciousness is awake, alert, obeys commands, Oriented to person, place, time, situation. Cardiovascular: Heart tones S1 S2 present Rhythm is regular. Respiratory: Reports shortness of breath Airway is patent Respiratory effort is even, unlabored, Respiratory pattern is regular, symmetrical, Breath sounds are clear bilaterally. GI: Abdomen is obese, Abd is soft and non tender X 4 quads. Patient currently denies nausea, vomiting. : No signs and/or symptoms were reported regarding the genitourinary system. EENT: No signs and/or symptoms were reported regarding the EENT system. Derm: Skin is pink, warm \T\ dry. Musculoskeletal: Range of motion: intact in all extremities. 16:53 Reassessment: Patient is alert, oriented x 3, equal unlabored respirations, skin aa5 warm/dry/pink. Pain: Pain currently is 6 out of 10 on a pain scale. 17:09 Reassessment: Patient is alert, oriented x 3, equal unlabored respirations, skin aa5 warm/dry/pink. Pt to CT scan. Pt reports chest pain has decreased but back pain has remained the same, MD was notified. . 17:44 Reassessment: Patient is alert, oriented x 3, equal unlabored respirations, skin aa5 warm/dry/pink. Pain: Pain currently is 8 out of 10 on a pain scale. 18:06 Reassessment: Patient is alert, oriented x 3, equal unlabored respirations, skin aa5 warm/dry/pink. Pain: Pain currently is 5 out of 10 on a pain scale. 18:50 Reassessment: Patient is alert, oriented x 3, equal unlabored respirations, skin aa5 warm/dry/pink. Pain: Pain currently is 5 out of 10 on a pain scale. 19:40 Reassessment: Patient appears in no apparent distress at this time. Patient and/or bm8 family updated on plan of care and expected duration. Pain level reassessed. Patient states feeling better. Patient states symptoms have improved. General: Appears in no apparent distress. comfortable, Behavior is calm, cooperative, appropriate for age. Pain: Complains of pain in back Pain currently is 4 out of 10 on a pain scale. Neuro: Level of Consciousness is awake, alert, obeys commands, Oriented to person, place, time, situation. Cardiovascular: Denies chest pain, Heart tones S1 S2 present Capillary refill < 3 seconds in bilateral fingers Patient's skin is warm and dry. Rhythm is sinus rhythm. Respiratory: Airway is patent Respiratory effort is even, unlabored, Respiratory pattern is regular, symmetrical, Breath sounds are clear bilaterally. GI: No signs and/or symptoms were reported involving the gastrointestinal system. : No signs and/or symptoms were reported regarding the genitourinary system. EENT: No signs and/or symptoms were reported regarding the EENT system. Derm: No signs and/or symptoms reported regarding the dermatologic system. Musculoskeletal: No signs and/or symptoms reported regarding the musculoskeletal system. Vital Signs: 16:13 BP 162 / 79; Pulse 83; Resp 18; Temp 98.2; Pulse Ox 99% on R/A; Weight 75.75 kg; tl4 16:45 BP 132 / 75; Pulse 82; Resp 16 S; Pulse Ox 95% ; aa5 17:00 BP 131 / 68; Pulse 82; Resp 14 S; Pulse Ox 97% on R/A; aa5 18:23 BP 124 / 66; Pulse 65; Resp 18; Pulse Ox 99% ; ko1 19:40 BP 128 / 62; Pulse 78; Resp 18; Temp 98.2; Pulse Ox 98% ; Pain 4/10; bm8 19:40 Pain Scale: Adult bm8 [place] Coma Score: 19:40 Eye Response: spontaneous(4). Motor Response: obeys commands(6). Verbal Response: bm8 oriented(5). Total: 15. ED Course: 16:04 Patient arrived in ED. mg5 16:04 Urban Hinton MD is Attending Physician. rt 16:07 Jazmine Santamaria, LISS is Primary Nurse. aa5 16:15 Triage completed. tl4 16:16 Arm band placed on right wrist. tl4 16:30 Patient has correct armband on for positive identification. Placed in gown. Bed in low aa5 position. Call light in reach. Side rails up X2. Adult w/ patient. Client placed on continuous cardiac and pulse oximetry monitoring. NIBP monitoring applied. office spec on. Pulse ox on. NIBP on. 16:30 Inserted saline lock: 20 gauge in right antecubital area, using aseptic technique. ls5 Blood collected. 16:31 EKG done, by ED staff, reviewed by Urban Hinton MD. ls5 17:22 CT Aorta for Dissection In Process Unspecified. EDMS 18:42 Jeremias Caputo MD is Hospitalizing Provider. rt 19:00 Report given to LISS HEATH and LISS Kirkland. aa5 19:40 Provided Education on: need for admission. bm8 19:40 No provider procedures requiring assistance completed. Patient admitted, IV remains in bm8 place. Patient maintains SpO2 saturation greater than 95% on room air. Administered Medications: 16:45 Drug: Nitroglycerin Sublingual 0.4 mg Sublingual once; every five minute if needed x3 aa5 Route: Sublingual; 16:53 Drug: Nitroglycerin Sublingual 0.4 mg Sublingual once; every five minute if needed x3 aa5 Route: Sublingual; 17:00 Drug: Nitroglycerin Sublingual 0.4 mg Sublingual once; every five minute if needed x3 aa5 Route: Sublingual; 17:09 Follow up: Response: No adverse reaction aa5 17:44 Drug: morphine IVP or IV 4 mg IVP once over 4 mins Route: IVP; Infused Over: 4 mins; aa5 Site: right antecubital; 18:06 Follow up: Response: No adverse reaction; Pain is decreased aa5 17:44 Drug: Ondansetron IVP 4 mg IVP once; over 2 minutes Route: IVP; Site: right antecubital;aa5 18:06 Follow up: Response: No adverse reaction aa5 19:44 Drug: Aspirin PO 325 mg PO once Route: PO; bm8 19:44 Follow up: Response: No adverse reaction bm8 Medication: 18:06 VIS not applicable for this client. aa5 Outcome: 18:42 Decision to Hospitalize by Provider. rt 19:40 Admitted to Med/surg accompanied by nurse, via wheelchair, room 228, bm8 19:40 Condition: stable 19:40 Instructed on follow up and referral plans. the need for admit, Demonstrated understanding of instructions, follow-up care, medications, 20:45 Patient left the ED. bm8 Signatures: Dispatcher [employer] EDMS Jazmine Santamaria, RN RN aa5 Niki Weber, RN RN ko1 Urban Hinton MD MD rt Zeferino Myers ls5 Alysa Kwan mg5 Andrew Linn RN RN tl4 Isael Betancourt, LISS RN bm8
[2024-03-01] MEDS ORDERED: ONDANSETRON 4 MG/2 ML VIAL IV PRN (18:57)
[2024-03-01] MEDS ORDERED: ACETAMINOPHEN 325 MG TABLET PO PRN (18:57)
--- NOTE | 2024-03-01 18:57 | P.HP ---
Certification for Inpatient Patient admitted to: Observation With expected LOS: <2 Midnights Practitioner: I am a practitioner with admitting privileges, knowledge of patient current condition, hospital course, and medical plan of care. Services: Services provided to patient in accordance with Admission requirements found in Title 42 Section 412.3 of the Code of Federal Regulations Patient History Date of Service: 03/01/24 Reason for admission: CP History of Present Illness: 63-year-old female with past medical history of hypertension, history of DVT and PE and was on Eliquis for 6 months who was brought to ER with chest pain which has been going on for the last 5 days. Patient also had a history of rotator cuff tendinitis and had surgery. Pain is located in retrosternal with radiation to back, not associated with any diaphoresis. No fever or chills. No nausea vomiting or diarrhea. Pain is pressure-like. No change with position or exercise. Patient was seen in urgent care and had received some injection but the pain was not improving and was brought to ER. No sick contacts. Denies any upper respiratory symptoms. Patient was assessed in the ER and was admitted for further management of chest pain to rule out ACS Allergies No Known Allergies Allergy (Verified 06/22/23 06:53) Home medications list reviewed: Yes Home Medications: lisinopriL [Prinivil*] 10 mg PO DAILY 06/18/23 - Past Medical/Surgical History Diabetic: No Past Medical History: Reviewed- Non-Contributory -: Left shoulder injury -: Osteoarthritis -: Hypertension Past Surgical History: Reviewed- Non-Contributory -: C - Section -: Rotator cuff repair left shoulder - Family History Family History: Reviewed- Non-Contributory - Social History Smoking Status: Never smoker Alcohol use: Yes CD- Drugs: No Caffeine use: Yes Review of Systems 10-point ROS is otherwise unremarkable Physical Examination - Vital Signs Temperature: 97.2 F Blood Pressure: 156/82 Pulse: 78 Respirations: 18 Pulse Ox (%): 94 - Physical Exam General: Alert, In no apparent distress, Oriented x3, Obese HEENT: Atraumatic, Normocephalic Neck: Supple Respiratory: Clear to auscultation bilaterally, Normal air movement Cardiovascular: Regular rate/rhythm, Normal S1 S2 Capillary refill: <2 Seconds Gastrointestinal: Soft and benign, W/out hepatosplenomegaly Musculoskeletal: No clubbing, No swelling Integumentary: No rashes Neurological: Normal speech, Normal strength at 5/5 x4 extr, Cranial nerves 3-12 intact, Normal reflexes 2+ Lymphatics: No axilla or inguinal lymphadenopathy - Studies Laboratory Data (last 24 hrs) 03/01/24 03/01/24 16:27 16:27 WBC 10.50 Hgb 12.0 Hct 36.8 Plt Count 264 Sodium 139 Potassium 4.1 BUN 32 H Creatinine 0.76 Glucose 134 H Magnesium 2.3 Total Bilirubin 0.3 AST 11 L ALT 21 Alkaline Phosphatase 75 Assessment and Plan - Plan Chest pain to rule out ACS Will trend cardiac enzymes Will monitor telemetry Started on aspirin and statin EKG did not show any acute changes suggestive of ischemia Will get an echocardiogram Cardiology consult Hypertension Antihypertensives titrated Continue home medications and titrate as needed Obesity Advise lifestyle modification History of PE Was on Eliquis till recently GI/DVT prophylaxis Advanced directive full code Discharge Plan: Home Plan to discharge in: 48 Hours - Advance Directives Does patient have a Living Will: No Does patient have a Durable POA for Healthcare: No - Code Status/Comfort Care Code Status: Full Code Time Spent Managing Pts Care (In Minutes): 48
[2024-03-01] MEDS ORDERED: ASPIRIN 325 MG TAB ONE (19:38)
[2024-03-01 21:04] VITALS: O2SAT 97
[2024-03-01] MEDS ORDERED: MORPHINE 2 MG/ML SYR IV PRN (21:41)
[2024-03-01 22:22] VITALS: BMI 33.9
[2024-03-01] MEDS: HYDROCODONE/APAP 5/325 MG TAB PO PRN (22:34)
[2024-03-01 23:00] LABS: Sqamous Epithelial <5 /HPF (None Seen); Urine Bacteria None Seen /HPF (<20); Urine Bilirubin NEGATIVE (Negative); Urine Blood Negative (Negative); Urine Clarity Clear (Clear); Urine Color Colorless (Yellow); Urine Culture Reflex Order NOT NEEDED; Urine Glucose NEGATIVE (Negative); Urine Ketones NEGATIVE (Negative); Urine Microscopic Reflex YN ORDER UMIC; Urine Mucus Slight /HPF (None Seen); Urine Nitrite NEGATIVE (Negative); Urine Protein NEGATIVE (Negative); Urine RBC <5 /HPF (None Seen); Urine Urobilinogen Normal (Normal); Urine WBC <5 /HPF (<5); Urine pH 5.5 (5.0-7.0)
[2024-03-01 23:05] LABS: Specific Gravity > 1.030 (1.005-1.030)
[2024-03-02 07:32] LABS: Absolute Lymphocytes (CBC) 3.1 K/uL (0.7-4.9); Absolute Monocytes 0.5 K/uL (0.1-1.3); Absolute Neutrophil 5.4 K/uL (1.8-8.0); Basophils % 0.4 % (0-1.3); Eosinophils % 0.2 % (0-4.4); Hematocrit 33.7 % (36.0-45.0); Hemoglobin 11.2 g/dL (12.0-15.0); Lymphocytes % 34.8 % (15.3-44.8); MCH 28.5 pg (27.0-35.0); MCHC 33.3 g/dL (32.0-36.0); MCV 85.5 fL (80-100); MPV 9.8 fL (7.6-11.3); Monocytes % 5.1 % (3.3-12.3); Neutrophils % 59.5 % (41.7-73.7); Nucleated Red Blood Cells % 0.1 % (0-0); Platelets 221 thou/uL (152-406); RBC Red Blood Cell Count 3.94 M/uL (3.86-4.86); Red Cell Distribution Width 14.7 % (12.1-15.2)
[2024-03-02 07:49] LABS: ALT/SGPT 19 U/L (13-56); Albumin 3.3 g/dL (3.4-5.0); Alkaline Phosphatase 53 U/L (45-117); Anion Gap 8.2 mEq/L (5.0-15.0); BUN Blood Urea Nitrogen 27 mg/dL (7-18); Bicarbonate 26 mEq/L (21-32); Bilirubin Total 0.2 mg/dL (0.2-1.0); Globulin 3.4 g/dL (2.3-3.5); Glomerular Filtration Rate 100 ml/min (=/>90); Glucose Level 92 mg/dL (74-106); HDL Cholesterol 55 mg/dL (40-60); LDL Cholesterol, Calculated 138 mg/dL (<130); LDL Cholesterol,Calc NonReport 138; Potassium 4.2 mEq/L (3.5-5.1); Protein, Total 6.7 g/dL (6.4-8.2); Sodium Level 140 mEq/L (136-145)
[2024-03-02 07:56] LABS: AST/SGOT < 10 U/L (15-37)
[2024-03-02] MEDS: ASPIRIN EC 81 MG TAB PO SCH (08:05)
[2024-03-02] MEDS: ENOXAPARIN 40 MG/0.4 ML SQ SCH (08:05)
[2024-03-02 09:36] VITALS: TEMP 98
[2024-03-02] MEDS: LIDOCAINE 4% PATCH TOP SCH (11:23)
--- NOTE | 2024-03-02 12:13 | P.DS ---
Admission Date: 03/01/24 Discharge Date: 03/02/24 Disposition: ROUTINE DISCHARGE Discharge Condition: GOOD Reason for Admission: CP Brief History of Present Illness: This is a 63 years old female patient with past medical history significant for hypertension, obesity, pulmonary embolism DVT of apixaban who presented to emergency room for evaluation of 5 days of left-sided chest pain. CT of the chest and abdomen and pelvis which shows no aortic dissection, no pulmonary embolism, no parenchymal lung lesion. Twelve-lead EKG normal sinus rhythm, no ischemic change. Patient was admitted under observation on telemetry. Hospital Course: She was complaining of persistent pain on left costochondral junction, reproducible, consistent with costochondritis. Her pain seems to be improved with [place]. Serial troponin normal x 3, no arrhythmia on playground monitor overnight. Cardiology evaluated patient and recommend outpatient follow-up. Naproxen 500 mg twice daily as needed and lidocaine patch is prescribed at discharge. Discharge diagnosis #1 left costochondritis #2 controlled hypertension #3 obesity #4 hyperlipidemia Vital Signs/Physical Exam: Temp Pulse Resp BP Pulse Ox 98.0 F 64 14 129/52 L 96 03/02/24 08:00 03/02/24 08:00 03/02/24 08:00 03/02/24 08:00 03/02/24 08:00 Other Physical/Emotional Findings: - Physical Exam. General: Obese, not acutely ill looking, in no apparent distress,. HEENT: Normocephalic, atraumatic,. Neck: Supple, without JVD or goiter or thyroid mass. Respiratory: Normal breathing effort, clear to auscultation bilaterally, no crackles no wheezing or rhonchi. Cardiovascular: Regular rate and rhythm, S1, S2 normal, no murmur no gallop. Chest wall; direct tenderness along the left upper costochondral junction. Gastrointestinal: Normal bowel sounds, nondistended, nontender, No ascites, , No masses, no hepatosplenomegaly. Musculoskeletal: No clubbing, No peripheral edema. Integumentary: No rashes. Lymphatics: No axilla or cervical lymphadenopathy. Neurology; alert awake oriented x3, no focal neurologic deficit Laboratory Data at Discharge: WBC 9.00 thou/uL (4.3-10.9) 03/02/24 06:27 Hgb 11.2 g/dL (12.0-15.0) L 03/02/24 06:27 Hct 33.7 % (36.0-45.0) L 03/02/24 06:27 Plt Count 221 thou/uL (152-406) 03/02/24 06:27 APTT 28.1 SECONDS (24.3-36.9) 03/02/24 06:27 Sodium 140 mEq/L (136-145) 03/02/24 06:27 Potassium 4.2 mEq/L (3.5-5.1) 03/02/24 06:27 BUN 27 mg/dL (7-18) H 03/02/24 06:27 Creatinine 0.63 mg/dL (0.55-1.02) 03/02/24 06:27 Glucose 92 mg/dL (74-106) 03/02/24 06:27 Magnesium 2.3 mg/dL (1.6-2.4) 03/01/24 16:27 Total Bilirubin 0.2 mg/dL (0.2-1.0) 03/02/24 06:27 AST < 10 U/L (15-37) L 03/02/24 06:27 ALT 19 U/L (13-56) 03/02/24 06:27 Alkaline Phosphatase 53 U/L (45-117) D 03/02/24 06:27 Triglycerides 114 mg/dL (<150) 03/02/24 06:27 Cholesterol 216 mg/dL (<200) H 03/02/24 06:27 HDL Cholesterol 55 mg/dL (40-60) 03/02/24 06:27 Cholesterol/HDL Ratio 3.93 03/02/24 06:27 Home Medications: RX: lisinopriL [Prinivil*] 10 mg PO DAILY 06/18/23 RX: Lidocaine 4% Patch [Lidoderm 5% Patch*] 1 patch TOP DAILY #20 pat 03/02/24 RX: Naproxen [Naprosyn] 500 mg PO BID #20 03/02/24 New Medications: RX: Lidocaine 4% Patch [Lidoderm 5% Patch*] 1 patch TOP DAILY #20 pat RX: Naproxen [Naprosyn] 500 mg PO BID #20 Physician Discharge Instructions: Please see the cardiology as outpatient. Diet: AHA Activity: Ad bruce Followup: Kevin Nice DO [Primary Care Provider] -
--- NOTE | 2024-03-02 12:34 | P.CNS ---
Date of Consult: 03/02/24 Chief Complaint: CP History of Present Illness: Patient with PMH of HTN, presented with left side chest pain, radiating to shoulder and upper arm for the last 5 days, sharp in nature, continuos, denies any other cardiac symptoms, report recent left shoulder surgery. Allergies No Known Allergies Allergy (Verified 06/22/23 06:53) Home medications list reviewed: Yes Home Medications: lisinopriL [Prinivil*] 10 mg PO DAILY 06/18/23 Lidocaine 4% Patch [Lidoderm 5% Patch*] 1 patch TOP DAILY #20 pat 03/02/24 Naproxen [Naprosyn] 500 mg PO BID #20 03/02/24 - Past Medical/Surgical History Diabetic: No -: Left shoulder injury -: Osteoarthritis -: Hypertension -: DVT, PE -: C - Section -: Rotator cuff repair left shoulder - Social History Smoking Status: Never smoker Alcohol use: Yes CD- Drugs: No Caffeine use: Yes Place of Residence: Home Review of Systems 10-point ROS is otherwise unremarkable Physical Examination Temp Pulse Resp BP Pulse Ox 98.0 F 64 14 129/52 L 96 03/02/24 08:00 03/02/24 08:00 03/02/24 08:00 03/02/24 08:00 03/02/24 08:00 General: Alert, In no apparent distress HEENT: Atraumatic, PERRLA, Mucous membr. moist/pink, EOMI, Sclerae nonicteric Neck: Supple, 2+ carotid pulse no bruit, No LAD, Without JVD or thyroid abnormality Respiratory: Clear to auscultation bilaterally, Normal air movement Cardiovascular: Regular rate/rhythm, Normal S1 S2 Gastrointestinal: Normal bowel sounds, No tenderness Musculoskeletal: No tenderness Integumentary: No rashes Neurological: Normal gait, Normal speech, Normal tone, Normal affect Lymphatics: No axilla or inguinal lymphadenopathy Laboratory Data (last 24 hrs) 03/01/24 03/01/24 16:27 16:27 WBC 10.50 Hgb 12.0 Hct 36.8 Plt Count 264 Sodium 139 Potassium 4.1 BUN 32 H Creatinine 0.76 Glucose 134 H Magnesium 2.3 Total Bilirubin 0.3 AST 11 L ALT 21 Alkaline Phosphatase 75 - Problems (1) Chest pressure Current Visit: No Status: Acute Plan: atypical for cardiac, EKG and Cardiac enzymes are negative. most likely MSK in nature. outpatient follow up for echo and stress test. (2) History of hypertension Current Visit: No Status: Acute Plan: BP has been stable during hospital stay, off medications, continue to monitor.
--- NOTE | 2024-03-02 12:40 | EKG ---
Test Date: 2024-03-01 Test Time: 16:21:35 [employer]ly Dump Driver: KRISTYN Amaya MEASUREMENT RESULTS: Intervals: Rate: 80 MS: 142 QRSD: 94 QT: 402 QTc: 463 [place]: P: 35 MS: 142 QRS: 1 T: 157 INTERPRETIVE STATEMENTS: Normal sinus rhythm Minimal voltage criteria for LVH, may be normal variant T wave abnormality, consider anterolateral ischemia Abnormal ECG Compared to ECG 07/24/2023 20:31:02 Left ventricular hypertrophy now present Possible ischemia now present T-wave abnormality still present Electronically Signed On 03-02-24 12:38:56 COMPUTER HARDWARE ENGINEER by Armin Valadez
[2024-03-02 12:47] VITALS: BP 119/48
[2024-03-02] MEDS ORDERED: ATORVASTATIN 40 MG TAB PO SCH (21:00)
== END 2024-03-02 14:10 | disposition home or self-care (01) ==
LOC: ER 15:59 → ERHOLD 18:57 → 2ND 19:47
PROVIDERS: ADMIT Family Medicine; ATTEND Internal Medicine
DX: R07.89 Other chest pain (principal); I10 Essential (primary) hypertension; M19.90 Unspecified osteoarthritis, unspecified site; E66.9 Obesity, unspecified; Z71.3 Dietary counseling and surveillance; Z86.718 Personal history of other venous thrombosis and embolism; Z68.33 Body mass index [BMI] 33.0-33.9, adult
CPT/HCPCS: 93005; 85025 ×2; 81001; 80048; 36415; 83735; 80061; 80076; 85730; 83036; 84484 ×4; 80053; 71275; 74175; 94760; 96375; 96374; 99285; Q9967; J1650; J2405; G0378 ×3

== ENCOUNTER 2024-06-13 08:22 | Emergency (ER) | payer OTHER ==
--- OUTSIDE RECORDS SUMMARY | 2024-06-13 08:26 | XMS REPORT | Continuity of Care Document ---
Author Name Unknown Address [address] [facility] [address] th[address] Address [address] [facility] [place] [address] Care Team Providers [employer] Rep Name Role Phone Gayle Boudreaux Attending Clinician Unavailable VIOLA COLLAZO Attending Clinician UnavailDOLORES Menard Attending Clinician Unavailab DARNELL Rivera Attending Clinician Unavailable MELISSA JEFFERY Attending Clinician Unavailable LAB90 Attending Clinician Unavailable 39, HOLTER Attending Clinician Unavailable WILLIE CARRILLO Attending Clinician Unavailable REMBERTO RAZA Attending Clinician Unavailab ISIDORO Fox Attending Clinician Unavailable TRED47 Attending Clinician Unavailable CAROL DAVALOS Attending Clinician Unavailable MD SIRISHA Attending Clinician Unavailab MERCEDEZ Eddy Attending Clinician Unavail able BENIGNO SWANN Attending Clinician UnaJOLEEN Peguero Attending Clinician UnavailGAYLE King Attending Clinician Unava ROBERT Umaña Attending Clinician Unavailable Gayle Boudreaux Admitting Clinician Unavailable Payers Payer Name Policy Type Policy Number Effective Date Expirati on Date Source GEOVANNA ARREDONDO S HMO RESIDENT CARE AID 94 ON 9 [id number] 2022 00:00:00 [facility] CASIJennySERG SHAW [employer]AY FOCUS 9 [id number] 2023 00:00:00 Problems Condition Name Condition Details Condition Category Status Onset Date Resolution Date Last Treatment Date Treating Clinician Comments Source 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 12-03 00:00: 00 Casi murillo Abnormal ECG Abnormal ECG Disease Active 12-03 [...] Active 07-26 00:00: 00 Casi Graciaa chidi Hospital discharge follow-up Hospital discharge follow-up [...] adult Disease Active 07-26 00:00: 00 Casi murillo Class 2 severe obesity due to excess calories with serious comorbidit y and body mass index (BMI) of 35.0 to 35.9 in adult Class 2 severe obesity due to excess calories with serious comorbidit y and body mass index (BMI) of 35.0 to 35.9 in adult Disease Active 07-26 00:00: 00 Casi Graciaa chiid Social History Social Habit Start Date Stop Date Quantity Comments Source ASSERTION Not Casi Seybold - External History of Occupation Casi Ulrich - External Sexual orientation Esther Ulrich - External Alcoholic beverage intake 2024-03-04 00:00:00 2024-03-04 00:00:00 Current drinker of alcohol (finding) Casi awaisadalberto - External Tobacco use and exposure 2023-07-27 00:00:00 2023-07-27 00:00:00 Smokeless tobacco non-user Casi Ulrich - External Education 2023-07-27 00:00:00 2023-07-27 00:00:00 6 Casi awaisadalberto - External Alcohol Comment 2023-07-27 00:00:00 2023-07-27 00:00:00 rarely Casi awaisadalberto - External Alcohol intake 2023-07-27 00:00:00 2023-07-27 00:00:00 Current drinker of alcohol (finding) Casi fariba - External History of Social function 2023-07-27 00:00:00 2023-07-27 00:00:00 Casi awaisadalberto - External Sex 2022-04-20 15:50:51 2022-04-20 15:50:51 Female (finding) Casi Ulrich - External Sex assigned at 1960 00:00:00 1960 00:00:00 Casi Ulrich - External Smoking Status Start Date Stop Date Source Never smoked tobacco Casi Serg - External Medications Ordered Medication Name Filled Medication Name Start Date Stop Date Current Medication? Ordering Clinician Indication Dosage Frequency Signature (SIG) Comments Components Source Cyclobenzap rine HCl 5 MG oral Tablet 2023-04 00:00: 00 Yes TAKE 1 TABLET BY MOUTH EVERY EIGHT HOURS NEEDED MUSCLE SPASM/PAIN Casi Michelle l Ketorolac Tromethamin e 10 MG oral Tablet 2023-04 00:00: 00 Yes 10mg [id number] 3D Take 1 tablet (10 mg total) by mouth 3 times daily. Casi Graciaa l Rosuvastati n Calcium (Crestor) 40 MG oral Tablet 12-31 00:00: 00 Yes 40mg QD Take 1 tablet (40 mg total) by mouth daily. Casi Graciaa l Lisinopril 10 MG oral Tablet 12-03 09:41: 32 12-03 00:00 :00 No 87 10mg QD Take 1 tablet (10 mg total) by mouth daily. Indication s: High Blood Pressure Disorder Casi murillo Lisinopril 10 MG oral Tablet 12-03 00:00: 00 Yes 87 10mg QD Take 1 tablet (10 mg total) by mouth daily. Indication s: High Blood Pressure Disorder Casi murillo predniSONE (DELTASONE) 10 MG oral tablet 12-02 00:00: 00 Yes 10mg QD Take 1 tablet (10 mg total) by mouth daily. Casi murillo Ondansetron HCl (Zofran) 4 MG oral Tablet 11-21 15:28: 35 11-21 00:00 :00 No [id number] 4mg Take 1 tablet (4 mg total) by mouth every 12 hours as needed for nausea. Casi murillo Omeprazole 20 MG oral Delayed Release Capsule 09-02 00:00: 00 11-21 00:00 :00 No [id number] 20mg QD Take 1 capsule (20 mg total) by mouth daily. Casi murillo Doxepin HCl 3 MG oral Tablet 09-02 00:00: 00 11-21 00:00 :00 No [id number] 1{tbl} QD Take 1 tablet by mouth [...] Lorazepam (ATIVAN) 0.5 MG oral Tablet tablet 07-26 00:00: 00 08-08 00:00 :00 No [id number] .5mg QD Take 1 tablet (0.5 mg total) by mouth nightly as needed for anxiety. Casi murillo Ondansetron (ZOFRAN) 4 MG oral TABLET DISPERSIBLE 07-26 00:00: 00 08-08 00:00 :00 No [id number] 4mg QD Take 1 tablet (4 mg [...] MG oral Tablet 3-21 00:00: 00 Yes [id number] 50mg Take 1 tablet (50 mg total) by mouth nightly. Casi murillo Lisinopril 10 MG oral Tablet -14 00:00: 00 11-21 00:00 :00 No [id number] 10mg QD TAKE 1 TABLET BY MOUTH EVERY DAY Casi murillo Methocarbam ol 500 MG oral Tablet - 00:00: 00 Yes TAKE 1 TABLET ORALLY THREE TIMES A DAY NEEDED Casi murillo Ondansetron HCl (Zofran) 4 MG oral Tablet 06-24 00:00: 00 Yes [id number] 4mg Q.25D Take 1 tablet (4 mg total) by mouth every 12 hours as needed for nausea. Casi murillo HYDROcodone -Acetaminop hen 7.5-325 MG oral Tablet 06-18 00:00: 00 Yes TAKE 1 TABLET BY MOUTH EVERY 6 HOURS NEEDED FOR 7 DAYS Cais muirllo Meloxicam 7.5 MG oral Tablet 05-31 00:00: 00 Yes [id number] 7.5mg Take 1 tablet (7.5 mg total) by mouth daily. Casi murillo Ketorolac Tromethamin e (TORADOL) 30 mg/mL 2022-04 22:45: 00 03-30 22:56 :00 No [id number] 30mg Casi murillo methylPREDN ISolone 4 MG oral Tablet Therapy Pack 2022-04 00:00: 00 Yes [id number] 1{huseyin} Take 1 huseyin by mouth See Admin Instructio ns Use as directed. Casi murillo Meloxicam 7.5 MG oral Tablet 2022-04 00:00: 00 Yes [id number] 7.5mg Take 1 tablet (7.5 mg total) by mouth daily. Casi murillo Methylpredn isolone Acetate (Depo-Medro l) 40 mg/ml - Physician Administere d ([id number]) 2022-04 0 14:15: 00 01-25 22:40 :00 No [id number] 9104 40mg Casi murillo methylPREDN ISolone 4 MG oral Tablet Therapy Pack 01-17 00:00: 00 05-31 00:00 :00 No [id number] 1{huseyin} Take 1 huseyin by mouth See Admin Instructio ns Use as directed. Casi Alvarado Externa l Diclofenac Sodium 75 MG oral Tablet Delayed Response 01-17 00:00: 00 05-31 00:00 :00 No [id number] 75mg Take 1 tablet (75 mg total) by mouth 2 times daily. Casi murillo Gabapentin 100 MG oral Capsule 01-10 00:00: 00 05-31 00:00 :00 No 100mg Take 1 capsule (100 mg total) by mouth 3 times daily. Casi Alvarado Externa l Immunizations Ordered Immunization Name Filled Immunization Name Date Status Comments Source Tdap- (Boostrix, Adacel) Unknown Completed Casi Ulrich - External Tdap- (Boostrix, Adacel) Unknown Completed Casi Ulrich - External Tdap- (Boostrix, Adacel) Unknown Completed Casi Ulrich - External Tdap- (Boostrix, Adacel) Unknown Completed Casi Ulrich - External Tdap- (Boostrix, Adacel) Unknown Completed Casi Ulrich - External Vital Signs Vital Name Observation Time Observation Value Comments S ource Systolic blood pressure 2023-12-13 19:43:00 126 mm[Hg] Casi Antonio ld - External Diastolic blood pressure 2023-12-13 19:43:00 68 mm[Hg] Casi Antonio ld - External Heart rate 2023-12-13 19:43:00 72 /min Nick Ulrich - External Body temperature 2023-12-13 19:43:00 36.94 Claudia Casi Ulrich - External Respiratory rate 2023-12-13 19:43:00 16 /min Casi Ulrich - External Body height 2023-12-13 19:43:00 160 cm Pinky Ulrich - External Body weight 2023-12-13 19:43:00 86.183 kg Pinky lowery ybadalberto - External BMI 2023-12-13 19:43:00 33.66 kg/m2 Pinky ey Seybold - External Oxygen saturation in Arterial blood by Pulse oximetry 2023-12-13 19:43:00 98 /min Casi Downso ld - External Systolic blood pressure 2023-12-04 14:32:00 129 mm[Hg] Casi Duffybo ld - External Diastolic blood pressure 2023-12-04 14:32:00 83 mm[Hg] Casi Duffybo ld - External Heart rate 2023-12-04 14:32:00 107 /min Monicose y Seybold - External Body temperature 2023-12-04 [...] Pulse oximetry 2023-12-04 14:32:00 95 /min Casi Downso ld - External Systolic blood pressure 2023-11-22 20:02:00 137 mm[Hg] Casi Duffybo ld - External Diastolic blood pressure 2023-11-22 20:02:00 71 mm[Hg] Casi Duffybo ld - External Heart rate 2023-11-22 20:02:00 82 /min Monicose y Seybold - External Body temperature 2023-11-22 [...] Pulse oximetry 2023-11-22 20:02:00 96 /min Casi Downso ld - External Systolic blood pressure 2023-09-03 14:35:00 135 mm[Hg] Casi Duffybo ld - External Diastolic blood pressure 2023-09-03 14:35:00 78 mm[Hg] Casi Duffybo ld - External Heart rate 2023-09-03 14:35:00 [...] Pulse oximetry 2023-09-03 14:35:00 100 /min Casi Duffybo ld - External Systolic blood pressure 2023-08-16 15:53:00 137 mm[Hg] Casi Seybo ld - External Diastolic blood pressure 2023-08-16 15:53:00 70 mm[Hg] Casi Duffybo ld - External Heart rate 2023-08-16 15:53:00 73 /min Monicose y Seybold - External Body temperature 2023-08-16 [...] External Heart rate 2023-08-09 15:39:00 66 /min Monicose y Seybold - External Body temperature 2023-08-09 [...] End Date/Time Encounter Type Admission Type Attending [facility] Care Department Encounter ID Source 2024-02-19 13:44:00 Outpatient Gayle Boudreaux [facility] [id number] [facility] 2023-06-18 08:17:01 Outpatient Gayle Boudreaux [facility] [id number] [facility] 2024-04-01 00:00:00 2024-04-01 00:00:00 Outpatient CASI BECERRA [id number] Casi fariba 2024-03-14 11:30:00 2024-03-14 11:30:00 Out[facility]OL[id number] [facility]:00:00 2024-03-14 00:00:00 Outpatient CASI BECERRA [id number] [facility] Duff[facility] 2024-03-04 10:00:00 2024-03-04 10:00:00 Outpatient DOLORES BAUER [id number] Casi Ulrich 2024-03-04 00:00:00 2024-03-04 00:00:00 Outpatient CASI BECERRA [id number] [facility] 2024-03-03 00:00:00 2024-03-03 00:00:00 Outpatient DOOLRES BAUER CASI BECERRA [id number] [facility]asi [facility] 2024-02-28 00:00:00 2024-02-28 00:00:00 Outpatient VIOLA COLLAZO CASI BECERRA [id number] [facility]asi [facility] 2024-01-14 00:00:00 2024-01-14 00:00:00 Outpatient DARNELL DUNAWAY [id number] [facility] 2024-01-08 16:15:00 2024-01-08 16:15:00 Outpatient MELISSA JEFFERY [id number] [facility] 2023-12-28 10:10:00 2023-12-28 10:10:00 Outpatient LAB90 CASI BECERRA [id number] [facility] 2023-12-21 09:20:00 2023-12-21 09:20:00 Outpatient 39PIERCE [facility] [id number] [facility]23-12-21 09:15:00 2023-12-21 09:15:00 Outpatient WILLIE CARRILLO [id number] [facility] 2023-12-20 00:00:00 2023-12-20 00:00:00 Outpatient CASI BECERRA [id number] [facility] 2023-12-14 09:05:00 2023-12-14 09:05:00 Outpatient LAB90 [facility] [id number] [facility] 2023-12-13 15:00:00 2023-12-13 15:00:00 Outpatient REMBERTO RAZA [id number] [facility] 2023-12-06 00:00:00 2023-12-06 00:00:00 Outpatient [facility]ECERRA [id number] [facility] 2023-12-04 09:30:00 2023-12-04 09:30:00 Outpatient DARNELL DUNAWAY [id number] [facility] 2023-11-30 00:00:00 2023-11-30 00:00:00 Outpatient CASI BECERRA [id number] [facility] 2023-11-27 00:00:00 2023-11-27 00:00:00 Outpatient ISIDORO SMALLS CASI BECERRA [id number] [facility] 2023-11-26 09:35:00 2023-11-26 09:35:00 Outpatient LAB90 CASI BECERRA [id number] [facility] Seybold 2023-11-22 16:15:00 2023-11-22 16:15:00 Outpatient TRED47 CASI BECERRA [id number] [facility] Seybold 2023-11-22 15:00:00 2023-11-22 15:00:00 Outpatient ISIDORO SMALLS CASI BECERRA [id number] [facility] 2023-10-08 00:00:00 2023-10-08 00:00:00 Outpatient CASI BECERRA [id number] [facility] 2023-09-24 13:30:00 2023-09-24 13:30:00 Outpatient GUME DARNELL CASI BECERRA [id number] [facility] Seybold 2023-09-11 00:00:00 2023-09-11 00:00:00 Outpatient CAROL DAVALOS [id number] [facility] 2023-09-05 00:00:00 2023-09-05 00:00:00 Outpatient PREZAYOMAIRA AmayaAND CASI BECERRA [id number] [facility] Sey[facility] 2023-09-03 09:45:00 2023-09-03 09:45:00 Outpatient MONIQUEJose LuisDARNELL [id number] [facility] Seybold 2023-08-29 00:00:00 2023-08-29 00:00:00 Outpatient PREDARNELL MORALES [id number] [facility] Seybold 2023-08-22 00:00:00 2023-08-22 00:00:00 Outpatient MD CASI ERIC [id number] [facility] Seybold 2023-08-16 10:30:00 2023-08-16 10:30:00 Outpatient REMBERTO RAZA CASI BECERRA [id number] [facility] 2023-08-16 00:00:00 2023-08-16 00:00:00 Outpatient CASI BECERRA [id number] [facility] 2023-08-13 10:00:00 2023-08-13 10:00:00 Outpatient [facility]ALOS [id number] [facility] 2023-08-09 10:30:00 2023-08-09 10:30:00 Outpatient MERCEDEZ MUHAMMAD CASI BECERRA [id number] [facility] 2023-08-07 00:00:00 2023-08-07 00:00:00 Outpatient PREANDREW DARNELL BECERRA [id number] [facility] 2023-08-02 00:00:00 2023-08-02 00:00:00 Outpatient PREZASDARNELL [id number] [facility] 2023-07-31 14:00:00 2023-07-31 14:00:00 Outpatient JUAN MANUEL CAROL CASI BECERRA [id number] [facility] 2023-07-30 11:30:00 2023-07-30 11:30:00 Outpatient DOLORES BAUER CASI [facility]ECERRA [id number] [facility] 2023-07-27 16:30:00 2023-07-27 16:30:00 Outpatient PREZASDARNELL [id number] [facility] 2023-07-27 11:30:00 2023-07-27 11:30:00 Outpatient PREZAS DARNELL BECERRA [id number] [facility] 2023-07-27 00:00:00 2023-07-27 00:00:00 Outpatient MD CASI ERIC [id number] [facility] 2023-07-27 00:00:00 2023-07-27 00:00:00 Outpatient PREZADARNELL Amaya [id number] [facility] 2023-07-24 00:00:00 2023-07-24 00:00:00 Outpatient CAROL DAVALOS CASI BECERRA [id number] [facility] 2023-07-24 00:00:00 2023-07-24 00:00:00 Outpatient BENIGNO SWANN CASI BECERRA [id number] [facility] 2023-07-23 00:00:00 2023-07-23 00:00:00 Outpatient DARNELL DUNAWAY CASI BECERRA [id number] [facility] 2023-07-12 10:00:00 2023-07-12 10:00:00 Outpatient JUAN MANUEL CAROL BECERRA [id number] [facility] 2023-07-12 00:00:00 2023-07-12 00:00:00 Outpatient CASI BECERRA [id number] [facility] 2023-07-11 00:00:00 2023-07-11 00:00:00 Outpatient JUAN MANUEL CAROL [facility]ECERRA [id number] [facility] 2023-07-01 00:00:00 2023-07-01 00:00:00 Outpatient JUAN MANUEL CAROL BECERRA [id number] [facility] 2023-06-18 00:00:00 2023-06-18 00:00:00 Outpatient MD CASI ERIC [id number] [facility] 2023-06-18 00:00:00 2023-06-18 00:00:00 Outpatient CASI BECERRA [id number] [facility] 2023-06-11 16:00:00 2023-06-11 16:00:00 Outpatient HARI JOLEEN BECERRA [id number] [facility] 2023-06-08 16:00:00 2023-06-08 16:00:00 Outpatient JOLEEN NORIEGA [id number] [facility] 2023-06-08 11:30:00 2023-06-08 11:30:00 Outpatient JOLEEN NORIEGA [id number] [facility] 2023-06-08 00:00:00 2023-06-08 00:00:00 Outpatient JENNIFERChidiCAROL [id number] [facility] Ulrich 2023-06-07 16:15:00 2023-06-07 16:15:00 Outpatient JOLEEN NORIEGA CASI BECERRA [id number] [facility] 2023-05-31 16:55:00 2023-05-31 16:55:00 Outpatient LAB90 CASI BECERRA [id number] [facility] 2023-05-31 16:00:00 2023-05-31 16:00:00 Outpatient CAROL DAVALOS [id number] [facility] 2023-05-30 11:00:00 2023-05-30 11:00:00 Outpatient CAROL DAVALOS [id number] [facility] 2023-05-17 00:00:00 2023-05-17 00:00:00 Outpatient CASI BECERRA [id number] [facility] 2023-05-15 00:00:00 2023-05-15 00:00:00 Outpatient GAYLE BOUDREAUX [id number] [facility] 2023-05-10 00:00:00 2023-05-10 00:00:00 Outpatient CASI BECERRA [id number] [facility] 2023-04-30 00:00:00 2023-04-30 00:00:00 Outpatient CASI BECERRA [id number] [facility] 2023-03-30 17:00:00 2023-03-30 17:00:00 Outpatient LAB90 CASI BECERRA [id number] [facility] Ulrich 2023-03-30 16:30:00 2023-03-30 16:30:00 Outpatient GAYLE BOUDREAUX [id number] [facility] 2023-03-30 00:00:00 2023-03-30 00:00:00 Outpatient CASI BECERRA [id number] [facility] 2023-02-27 00:00:00 2023-02-27 00:00:00 Outpatient MD CASI ERIC [id number] [facility] 2023-02-14 09:30:00 2023-02-14 09:30:00 Outpatient CAROL DAVALOS [id number] [facility] 2023-02-13 00:00:00 2023-02-13 00:00:00 Outpatient CAROL DAVALOS CASI [id number] [facility] Ul[facility] 2023-01-25 08:40:00 2023-01-25 08:40:00 Outpatient ROBERT GARCÍA CASI [id number] [facility] 2023-01-25 08:30:00 2023-01-25 08:30:00 Outpatient CASI BECERRA [id number] [facility] 2023-01-22 00:00:00 2023-01-22 00:00:00 Outpatient ROBERT GARCÍA CASI [id number] [facility] Ulrich 2023-01-18 00:00:00 2023-01-18 00:00:00 Outpatient CAROL DAVALOS CASI CASI [id number] [facility] 2023-01-18 00:00:00 2023-01-18 00:00:00 Outpatient GUMEDARNELL CASI CASI [id number] [facility] 2023-01-17 09:00:00 2023-01-17 09:00:00 Outpatient CAROL DAVALOS CASI BECERRA [id number] [facility] 2022-08-07 17:30:13 2022-08-07 17:30:13 Outpatient SFA SFA [...] data that is available. Assessment and Plan Edel was seen today for pre-op exam. Diagnoses [...] before being able to be cleared. 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 Referral Referral to Pulmonary for blood clot in lung Awilda Erickson MA II T Awilda Erickson MA, II [facility] 2023-07-12 10:10:09 Chief Complaint Patient presents with Blood Pressure Blood pressure has been elevated the past couple of days. Hot flashes at night and not sleeping well since the surgery Oumou Hess LVN [facility] 2023-05-31 16:16:58 Chief Complaint Patient presents with Pre-Op Exam Surgical clearance for left shoulder surgery on June 22, [address] Estevez. Awilda Erickson MA II [facility]
--- NOTE | 2024-06-13 10:14 | RAD REPORT ---
EXAMINATION: XR RIGHT SHOUDLER CLINICAL INDICATION: Female, 63 years old. PAIN RIGHT TECHNIQUE: Multiple views of the right shoulder were obtained. COMPARISON: No prior exam. FINDINGS: There is mild AC joint and glenohumeral joint arthritic changes present. No fracture, dislo cation or aggressive marrow lesion.
--- NOTE | 2024-06-13 10:14 | RAD REPORT ---
EXAMINATION: XR LEFT SHOULDER CLINICAL INDICATION: Female, 63 years old. PAIN TECHNIQUE: Multiple views of the left shoulder were obtained. COMPARISON: No prior exam. FINDINGS: Mild AC joint and glenohumeral joint arthritic changes. No acute fracture or dislocation s een.
--- NOTE | 2024-06-13 10:26 | EDPHYS ---
Physician Documentation [facility] Karen Name: Mady Her Age: 63 yrs Sex: Female : 1960 Arrival Date: 06/13/2024 Time: 08:22 Bed IW2 Private MD: ED Physician Zhou Dickey HPI: 06/13 09:33 This 63 yrs old Female presents to ER via Ambulatory with complaints of amanda Shoulder Pain. Historical: - Allergies: 08:52 No Known Allergies; ss - PMHx: 08:52 Hypertensive disorder; ss - PSHx: 08:52 section; Shoulder; ss - Infectious Disease History:: Denies. - Social history:: Smoking status: Patient denies any tobacco usage or history of. Vital Signs: 08:48 BP 158 / 84; Pulse 80; Resp 16; Temp 97.9(TE); Pulse Ox 98% ; Weight 82.55 kg; Height 5 ss ft. 2 in. ; Pain 8/10; 08:48 Body Mass Index 33.29 (82.55 kg, 157.48 cm) ss 08:48 Pain Scale: Adult ss MDM: 08:32 Medical Screening Exam initiated [facility] 06/13 08:54 Order name: XRAY Shoulder LEFT 2 view; Complete Time: 10:24 06/13 08:54 Order name: Shoulder Right (2 View) XRAY; Complete Time: 10:24 [facility] 06/13 09:02 Order name: CT C Spine; Complete Time: 10:34 [facility] 06/13 09:12 Order name: UPPER EXTREMITY VENOUS UNILATE; Complete Time: 10:34 [facility] 06/13 08:54 Order name: Ice pack; Complete Time: 10:50 [facility] 06/13 08:54 Order name: Sling; Complete Time: 10:50 [facility] Administered Medications: 08:59 CANCELLED (Duplicate Order): norco10 mg-325 mg 1 tabs PO once amanda 09:00 CANCELLED (Duplicate Order): mg PO once amanda 10:47 Not Given (Physician Discretion): Decadron - mg IVP once jl7 10:47 Not Given (Physician Discretion): [id number] mg IVP once jl7 10:47 Not Given (Physician Discretion): ondansetron 4 mg IVP once; over 2 minutes jl7 10:47 Not Given (Physician Discretion): fentanyl (pf)25 mcg IVP once jl7 10:47 Not Given (Patient Refused): diazepam5 mg PO once jl7 10:48 Not Given (Physician Discretion): ns 0.9% 500 ml 500 ml IV at 1 bolus once; to be given jl7 as a bolus over 30 minutes Disposition Summary: 06/13/24 10:25 Discharge Ordered Notes: Location: Home amanda Problem: new amanda Symptoms: have improved amanda Condition: Stable amanda Diagnosis - Pain in left shoulder amanda Followup: amanda - With: Private Physician - When: 2 - 3 days - Reason: Recheck today's complaints, Continuance of care, Re-evaluation by your physician Followup: amanda - With: Anjum Estevez MD - When: 2 - 3 days - Reason: Recheck today's complaints, Continuance of care, Re-evaluation by your physician Discharge Instructions: - Discharge Summary Sheet amanda - Joint Pain amanda - Arthritis amanda - Musculoskeletal Pain amanda - Shoulder Pain amanda - How to Use Cold Therapy, Oitj-ci-Dobn amanda - Shoulder Pain, [id number]-pm-[id number] [facility] Forms: - Medication Reconciliation Form amanda - Antibiotic Education amanda - Prescription Opioid Use amanda - Patient Portal Instructions [facility] - Leadership Thank You Letter [facility] - Work release form jl7 Prescriptions: - diclofenac sodium 25 mg Oral tablet, delayed release (enteric coated) - take 1 tablet ORAL route 3 times per day; 30 tablet; Refills: 0, Product amanda Selection Permitted - Medrol (Ruben) 4 mg Oral Tablets, Dose Pack - take 1 tablet ORAL route as directed - follow package instructions; 1 packet; amanda Refills: 0, Product Selection Permitted - methocarbamol 500 mg Oral tablet - take 1 tablet ORAL route 4 times per day for 7 days; 28 tablet; Refills: 0, amanda Product Selection Permitted Signatures: Dispatcher [employer] EDMS Zhou Dickey MD MD cha Blanchard, Shelby, RN RN Ryan Pimentel RN jl7 Corrections: (The following items were deleted from the chart) 08:59 08:54 Satsuma PO 10 mg-325 mg 1 tabs PO once ordered. amanda amanda 09:00 08:54 Diazepam PO 10 mg PO once ordered. [facility] 09:02 09:02 C Spine Wo Con+CT.RAD.BRZ ordered. EDMS EDMS 09:02 09:02 CBC+H.LAB.BRZ ordered. EDMS EDMS 09:02 09:02 COMPREHENSIVE METABOLIC PANEL+C.LAB.BRZ ordered. EDMS EDMS 09:12 09:02 Extremity Venous Uni Ltd+US.RAD.BRZ ordered. EDMS EDMS
--- NOTE | 2024-06-13 10:26 | ER ---
Nurse's Notes [facility] Name: Mady Her Age: 63 yrs Sex: Female : 1960 Arrival Date: 06/13/2024 Time: 08:22 Bed IW2 Private MD: Diagnosis: Pain in left shoulder Presentation: 06/13 08:48 Chief complaint: Patient states: L shoulder pain that has been ongoing x 1 year after ss surgery. PT reports she is here today because it is now popping for the past week. Coronavirus screen: Client denies travel out of the [place] in the last 14 days. Ebola Screen: Patient denies exposure to infectious person. Patient denies travel to an Ebola-affected area in the 21 days before illness onset. Initial Sepsis Screen: Does the patient meet any 2 criteria? No. Patient's initial sepsis screen is negative. Does the patient have a suspected source of infection? No. Patient's initial sepsis screen is negative. Risk Assessment: Do you want to hurt yourself or someone else? Patient reports no desire to harm self or others. Onset of symptoms was May 2023. 08:48 Method Of Arrival: Ambulatory ss 08:48 Acuity: MAYA 4 ss Historical: - Allergies: 08:52 No Known Allergies; ss - PMHx: 08:52 Hypertensive disorder; ss - PSHx: 08:52 section; Shoulder; ss - Infectious Disease History:: Denies. - Social history:: Smoking status: Patient denies any tobacco usage or history of. Vital Signs: 08:48 BP 158 / 84; Pulse 80; Resp 16; Temp 97.9(TE); Pulse Ox 98% ; Weight 82.55 kg; Height 5 ss ft. 2 in. ; Pain 8/10; 08:48 Body Mass Index 33.29 (82.55 kg, 157.48 cm) ss 08:48 Pain Scale: Adult ss ED Course: 08:26 Patient arrived in ED. cj3 08:32 Zhou Dickey MD is Attending Physician. [facility] 08:52 Triage completed. ss 08:52 Arm band placed on right wrist. ss 09:31 CT C Spine In Process Unspecified. EDMS 09:36 XRAY Shoulder LEFT 2 view In Process Unspecified. EDMS 09:36 Shoulder Right (2 View) XRAY In Process Unspecified. EDMS 10:14 UPPER EXTREMITY VENOUS UNILATE In Process Unspecified. EDMS 10:25 Anjum Estevez MD is Referral Physician. [facility] 10:47 Patient has correct armband on for positive identification. Provided Education on: jl7 discharge. 10:47 No provider procedures requiring assistance completed. Patient did not have IV access jl7 during this emergency room visit. 10:48 Sling applied to left arm. jl7 Administered Medications: 08:59 CANCELLED (Duplicate Order): norco10 mg-325 mg 1 tabs PO once amanda 09:00 CANCELLED (Duplicate Order): [id number] mg PO once amanda 10:47 Not Given (Physician Discretion): Decadron - [id number] mg IVP once jl7 10:47 Not Given (Physician Discretion): [id number] mg IVP once jl7 10:47 Not Given (Physician Discretion): ondansetron 4 mg IVP once; over 2 minutes jl7 10:47 Not Given (Physician Discretion): fentanyl (pf)25 mcg IVP once jl7 10:47 Not Given (Patient Refused): diazepam5 mg PO once jl7 10:48 Not Given (Physician Discretion): ns 0.9% 500 ml 500 ml IV at 1 bolus once; to be given jl7 as a bolus over 30 minutes Medication: 10:47 VIS not applicable for this client. jl7 Outcome: 10:25 Discharge ordered by . [facility] 10:48 Discharged to home ambulatory, with family, jl7 10:48 Condition: stable 10:48 Discharge instructions given to patient, family, Instructed on discharge instructions, follow up and referral plans. medication usage, Demonstrated understanding of instructions, follow-up care, medications, Prescriptions given X 3, 10:50 Patient left the ED. jl7 Signatures: Dispatcher [employer] EDMS Zhou Dickey MD MD cha Blanchard, Shelby, RN RN Ryan Pimentel RN RN Rubi Valdes cj3
--- NOTE | 2024-06-13 10:30 | RAD REPORT ---
EXAMINATION: US LEFT UPPER EXTREMITY VENOUS DOPPLER CLINICAL INDICATION: PAIN TECHNIQUE: Complete bilateral duplex sonography of the LEFT upper extremity veins was performed. The examination included compression for vein patency, color Doppler imaging and flow augmentation in response to distal compression of the internal jugular, brachiocephalic, subclavian, axillary, brachi al, radial, ulnar, cephalic and basilic veins. COMPARISON: No prior exam. FINDINGS: Duplex sonography testing of the veins of the LEFT upper extremity was performed. Color flow imaging shows all veins to be compressible with [id number] color filling. Pulsatile and phasic flow is present within all upper extremity deep and superficial veins examined. IMPRESSION: There is no deep vein or superficial vein thrombosis.
--- NOTE | 2024-06-13 10:32 | RAD REPORT ---
EXAMINATION: CT CERVICAL SPINE WITHOUT CONTRAST HISTORY: PAIN COMPARISON: None TECHNIQUE: Multiple contiguous axial images were obtained in a CT of the cervical spine without IV co ntrast. Sagittal and coronal reformats were performed. One or more of the following dose reduction techniques were used: Automated exposure control, adjustment of the mA and kV according to patient si ze, and iterative reconstruction. Unless otherwise specified, incidental findings do not require dedicated imaging follow-up. FINDINGS: The vertebral bodies demonstrate normal height and alignment without fracture or subluxation. Mild d isc thinning with small endplate osteophyte lower cervical levels. No prevertebral soft tissue swelling is seen. The posterior facets are well aligned. Normal alignment of the skull base with the cervical spine is seen. The odontoid appears normal and the lateral masses are symmetric. The lung apices are unremarkable. IMPRESSION: No evidence of acute osseous abnormality of the cervical spine. Mild lower cervical spondylosis.
[2024-06-14 03:05] VITALS: BP 158/84; TEMP 97.9; O2SAT 98
== END 2024-06-13 10:50 | disposition home or self-care (01) ==
LOC: ER 08:22
DX: M25.512 Pain in left shoulder (principal)
CPT/HCPCS: 72125; 93971; 99283